=== PATIENT | female | born 1985 | race Caucasian/White ===

== ENCOUNTER 2018-09-28 08:26 | Emergency (ER) | payer SELFPAY ==
[~2018-09-28] VITALS: Wt 90.0 kg
[2018-09-28 08:31] VITALS: BP 133/74; PULSE 99; RESP 18
[2018-09-28] MEDS ORDERED: MED4DP PO (09:05)
--- NOTE | 2018-09-28 11:15 | ERD ---
ER Documentation Chief Complaint Chief Complaint sabra fall on aug, has left leg pain since then , at [facility] HPI 33-year-old female presenting to the emergency department stating that she had a ground-level fall on September 18 and has been having severe 10 out of 10 left lateral thigh pain and left buttock pain that radiates down to her foot. Patient denies fevers, bladder or bowel incontinence or genital numbness. Patient has been at 4 different emergency department and received a CT scan as well which stated that she had a intramuscular hematoma. Patient was instructed to follow-up with an orthopedist today however patient has not done that yet. She has been taking Valium and oxycodone without much relief. Patient presents here for continuous pain. ROS All systems reviewed and are negative except as per history of present illness. Medications Home Meds Active Scripts Methylprednisolone* (Medrol* DOSE PACK) 4 Mg/Dose-Pack Tab.ds.pk, 4 MG PO . DIRECTED, #1 PACKET Prov:MARY ROGERS PA-C 09/28/18 Allergies Allergies: Coded Allergies: No Known Allergy (Unverified , 09/28/18) PMhx/Soc Medical and Surgical Hx: pt denies Medical Hx History of Surgery: Yes (PORFIRIO BREASTS AUGMENTATION) Anesthesia Reaction: No Hx Alcohol Use: No Hx Substance Use: Yes (MARIJUANA) Hx Tobacco Use: No Physical Exam Vitals Vital Signs Date Temp Pulse Resp B/P (MAP) Pulse Ox O2 O2 Flow FiO2 Time Delivery Rate 09/28/18 98.1 99 18 133/74 99 08:31 (93) Physical Exam GENERAL: WD/WN, in no apparent distress, non-toxic appearing HENT: NC/AT EYES: Conjunctiva normal NECK: Supple PULM: Normal labored breathing CV: Good capillary refill GI: Non-distended, no guarding BACK: no deformities noted, normal spinal curvature, non-tender on spine midline, TTP left buttock, normal anal wink, + left straight leg raise EXT: No clubbing, cyanosis, or edema NEURO: Moves on all fours, sensation intact, normal gait SKIN: intact PSYCH: Normal mood Procedures/MDM 33-year-old female presents with left leg pain status post ground-level fall that occurred on September 18, patient has been evaluated for different emergency departments and was told to follow-up with an orthopedist today. I have reviewed patient's past paperwork that she has brought in she was instructed to follow-up with orthopedist today in which they did not see that therefore patient states that she will call the orthopedist today. I have di scussed with her that if she is unable to get Orth O follow-up then to go to the [facility]. Patient is well-appearing stable to be discharged home I have given her prescription for Medrol Dosepak for sciatica as well. Departure Diagnosis: Primary Impression: Pain of left leg Additional Impression: Hematoma Condition: Stable Patient Instructions: Understanding Sciatica, Hematoma, Back Pain W/ Sciatica Referrals: [facility] YOU HAVE RECEIVED A MEDICAL SCREENING EXAM AND THE RESULTS INDICATE THAT YOU DO NOT HAVE A CONDITION THAT REQUIRES URGENT TREATMENT IN THE EMERGENCY DEPARTMENT. FURTHER EVALUATION AND TREATMENT OF YOUR CONDITION CAN WAIT UNTIL YOU ARE SEEN IN YOUR DOCTORS OFFICE WITHIN THE NEXT 1-2 DAYS. IT IS YOUR RESPONSIBILITY TO MAKE AN APPOINTMENT FOR FOLOW-UP CARE. IF YOU HAVE A PRIMARY DOCTOR --you should call your primary doctor and schedule an appointment IF YOU DO NOT HAVE A PRIMARY DOCTOR YOU CAN CALL OUR PHYSICIAN REFERRAL HOTLINE AT IF YOU CAN NOT AFFORD TO SEE A PHYSICIAN YOU CAN CHOSE FROM THE FOLLOWING [facility] CLIN[facility] [address] [facility]. [facility] [address] [facility] [facility] [address] [facility] [facility] [address] [facility]. [facility] [address] [facility]. [facility]. [address] [facility]. [facility] YOU HAVE RECEIVED A MEDICAL SCREENING EXAM AND THE RESULTS INDICATE THAT YOU DO NOT HAVE A CONDITION THAT REQUIRES URGENT TREATMENT IN THE EMERGENCY DEPARTMENT. FURTHER EVALUATION AND TREATMENT OF YOUR CONDITION CAN WAIT UNTIL YOU ARE SEEN IN YOUR DOCTORS OFFICE WITHIN THE NEXT 1-2 DAYS. IT IS YOUR RESPONSIBILITY TO MAKE AN APPOINTMENT FOR FOLOW-UP CARE. IF YOU HAVE A PRIMARY DOCTOR --you should call your primary doctor and schedule and appointment IF YOU DO NOT HAVE A PRIMARY DOCTOR YOU CAN CALL OUR PHYSICIAN REFERRAL HOTLINE AT . IF YOU CAN NOT AFFORD TO SEE A PHYSICIAN YOU CAN CHOSE FROM THE FOLLOWING PSY[facility]IATRIC HOSPITAL INSTITUTIONS: [facility] [address] [place] [address] [facility] [address] [place] [address] [facility] [address] [place] [address] Additional Instructions: FOLLOW UP WITH YOUR ORTHO OR PRIMARY CARE PHYSICIAN TOMORROW.Return to this facility if you are not improving as expected. Take all medicines as directed. Return to this facility if you are not improving as expected. MARY ROGERS PA-C Sep 28, 2018 11:15
== END 2018-09-28 09:16 | disposition home or self-care (01) ==
LOC: FTE 08:26
DX: S80.12XA Contusion of left lower leg, initial encounter (principal); W18.39XA Other fall on same level, initial encounter; Y92.9 Unspecified place or not applicable
CPT/HCPCS: 99283

== ENCOUNTER 2018-10-04 10:00 | Inpatient (IN) | payer MEDICAID ==
[~2018-10-04] VITALS: Ht 165.1 cm; Wt 74.0 kg
[~2018-10-04 10:00] MED LIST: MED4DP PO
[2018-10-04] MEDS ORDERED: ONDANSETRON 4 MG INJ IV STA (10:34)
[2018-10-04] MEDS ORDERED: SODIUM CHLORIDE 0.9% 1L BAG IV* STA (10:34)
[2018-10-04] MEDS ORDERED: morphine 2 MG INJ IV STA (10:34)
[2018-10-04] MEDS ORDERED: ACETAMINOPHEN 500 MG TAB PO STA (10:40)
[2018-10-04] MEDS ORDERED: PIPER-TAZO 3.375 GM IV (PMX) 100 ML IVPB ONE (12:30)
[2018-10-04] MEDS ORDERED: IOHEXOL 300MG/ML 150 ML BTL ONE (12:36)
[2018-10-04] MEDS ORDERED: SOD CHLORIDE 0.9% 100 ML ONE (12:36)
[2018-10-04] MEDS ORDERED: IBUPROFEN 600 MG TAB ONE (13:44)
[2018-10-04] MEDS ORDERED: IBUPROFEN 800 MG TAB PO ONE (14:00)
--- NOTE | 2018-10-04 14:09 | ERD ---
ER Documentation Chief Complaint Chief Complaint left hip pain fell 09/18/18 HPI Patient is a 33-year-old female with no medical problems who presents with fever and leg pain. The patient had a fall onto her left leg 3 weeks ago. She had lost her balance prior. She has been to 3 different ERs since for leg pain and fevers. She was never admitted. She was seen by orthopedics Dr. Gonsalves as well who felt like she had a hematoma that was too deep to drain. He said it would just need time but the patient has had continued pain and fever. ROS All systems reviewed and are negative except as per history of present illness. Medications Home Meds Discontinued Scripts Methylprednisolone* (Medrol* DOSE PACK) 4 Mg/Dose-Pack Tab.ds.pk, 4 MG PO . DIRECTED, #1 PACKET Prov:MARY ROGERS PA-C 09/28/18 Allergies Allergies: Coded Allergies: No Known Allergy (Unverified , 10/04/18) PMhx/Soc History of Surgery: Yes (PORFIRIO BREASTS AUGMENTATION) Anesthesia Reaction: No Hx Alcohol Use: No Hx Substance Use: Yes (MARIJUANA) Hx Tobacco Use: No Smoking Status: Never smoker FmHx Family History: diabetes Physical Exam Vitals Vital Signs Date Temp Pulse Resp B/P (MAP) Pulse Ox O2 O2 Flow FiO2 Time Delivery Rate 10/04/18 102.0 13:47 10/04/18 102.5 108 17 101/59 95 Room Air 13:07 (73) 10/04/18 102.6 11:48 10/04/18 114/67 11:44 (83) 10/04/18 102.6 113 17 100 Room Air 11:40 10/04/18 101.9 114 20 126/97 98 10:03 (107) Physical Exam Const: Moderate distress secondary to pain Head: Atraumatic Eyes: Normal Conjunctiva ENT: Normal External Ears, Nose and Mouth. Neck: Full range of motion. No meningismus. Resp: Clear to auscultation bilaterally Cardio: Regular rate and rhythm, no murmurs Abd: Soft, lower quadrant abdominal pain Skin: No petechiae or rashes Back: No midline or flank tenderness Ext: Left leg pain with palpation Neur: Awake and alert Psych: Normal Mood and Affect Result Diagram: 10/04/18 1156 10/04/18 1156 Results 24 hrs Laboratory Tests Test 1/8/19 11:43 10/04/18 11:55 10/04/18 11:56 10/04/18 12:59 POC Venous Lactate 1.6 mmol/L Serum HCG, Qualitative NEGATIVE White Blood Count 24.1 10^3/ul Red Blood Count 3.18 10^6/ul Hemoglobin 9.3 g/dl Hematocrit 28.1 % Mean Corpuscular 88.4 fl Volume Mean Corpuscular 29.2 pg Hemoglobin Mean Corpuscular 33.1 g/dl Hemoglobin Concent Red Cell Distribution 13.4 % Width Platelet Count 558 10^3/UL Mean Platelet Volume 9.4 fl Immature Granulocytes 3.700 % % Neutrophils % 83.1 % Lymphocytes % 6.7 % Monocytes % 5.8 % Eosinophils % 0.3 % Basophils % 0.4 % Nucleated Red Blood 0.0 /100WBC Cells % Immature Granulocytes 0.890 10^3/ul # Neutrophils # 20.0 10^3/ul Lymphocytes # 1.6 10^3/ul Monocytes # 1.4 10^3/ul Eosinophils # 0.1 10^3/ul Basophils # 0.1 10^3/ul Nucleated Red Blood 0.0 10^3/ul Cells # Erythrocyte 110.0 mm/Hr Sedimentation Rate Sodium Level 138 mmol/L Potassium Level 3.7 mmol/L Chloride Level 93 mmol/L Carbon Dioxide Level 32 mmol/L Anion Gap 13 Blood Urea Nitrogen 12 mg/dl Creatinine 0.54 mg/dl Est Glomerular Filtrat > 60 mL/min Rate mL/min Glucose Level 140 mg/dl Calcium Level 8.4 mg/dl Total Bilirubin 1.1 mg/dl Direct Bilirubin 0.80 mg/dl Indirect Bilirubin 0.3 mg/dl Aspartate Amino 79 IU/L Transf (AST/SGOT) Alanine 60 IU/L Aminotransferase (ALT/ SGPT) Alkaline Phosphatase 337 IU/L Creatine Kinase 95 IU/L Troponin I < 0.012 ng/ml C-Reactive Protein 34.5 mg/dl Total Protein 7.1 g/dl Albumin 3.1 g/dl Globulin 4.00 g/dl Albumin/Globulin Ratio 0.77 Lipase 56 U/L Prothrombin Time 14.4 Sec Prothrombin Time Ratio 1.1 INR International 1.11 Normalized Ratio Activated 30.2 Sec Partial Thromboplast Time Current Medications Medications Dose Sig/Nena Start Time Status Last (Trade) Ordered Route PRN Stop Time Admin Dose Reason Admin Sodium 2,220 ml BOLUS OVER 2 10/04/18 DC 10/04/18 Chloride HOURS STAT 10:34 10/04/18 11:49 (NS) IV* 10:40 Morphine 6 mg ONCE STAT 10/04/18 DC 10/04/18 Sulfate IV 10:34 10/04/18 11:48 (morphine) 10:40 Ondansetron 4 mg ONCE STAT 10/04/18 DC 10/04/18 HCl (Zofran IV 10:34 10/04/18 11:48 Inj) 10:40 1,000 mg ONCE STAT 10/04/18 DC 10/04/18 Acetaminophen PO 10:40 10/04/18 11:48 (Tylenol 10:41 Tab) Piperacillin 100 ml @ ONCE ONCE 10/04/18 DC 10/04/18 Sod/ 200 mls/hr IVPB 12:30 10/04/18 13:22 Tazobactam 12:59 Sod IV Flush 10 ml STK-MED 10/04/18 DC 10/04/18 (NS 10 ml) ONCE .ROUTE 12:36 10/04/18 14:00 12:37 Sodium 100 ml @ ud STK-MED 10/04/18 DC 10/04/18 Chloride ONCE .ROUTE 12:36 10/04/18 14:00 12:37 Iohexol 150 ml STK-MED 10/04/18 DC 10/04/18 (Omnipaque ONCE .ROUTE 12:36 10/04/18 14:00 300mg/ ml) 12:37 Ibuprofen 800 mg ONCE ONCE 10/04/18 DC 10/04/18 (Motrin) PO 14:00 10/04/18 13:47 14:01 Ibuprofen 600 mg STK-MED 10/04/18 DC (Motrin) ONCE .ROUTE 13:44 10/04/18 13:45 Procedures/MDM EKG read by me: Rate/Rhythm: Sinus tachycardia Intervals: Normal Impression: Tachycardia cardia without ischemia X-ray read by radiology. CT abdomen and pelvis is pending at this time. Sepsis Documentation: Patient's infectious symptoms have not stabilized and the patient is at risk of rapid decompensation. The patient will be admitted for careful hydration, antibiotic therapy, and infectious source control. SEVERE SEPSIS CRITERIA: Infectious source: Unclear etiology, possibly an infected hematoma End organ damage indicated by: No endorgan damage at this time SEPSIS MANAGEMENT Time of recognition of sepsis: 7:56 AM. Time of recognition of severe sepsis: [No severe sepsis at this time]. Time of recognition of septic shock: [No septic shock at this time]. 3 HOUR BUNDLE Blood cultures x 2 before broad-spectrum antibiotics: [Yes] 30 ml/kg NS bolus [Completed] Initial lactate 1.6 Repeat lactate pending SEPTIC SHOCK ASSESSMENT: [No] lactic acid > 4.0 [No] Persistent hypotension (SBP < 90 or 40 mmHg drop, MAP < 65) despite 30 mL/kg IV fluid bolus VOLUME REASSESSMENT FOR SEPTIC SHOCK: No septic shock at this time PERSISTENT HYPOTENSION TREATMENT: Comfort care [No] Central line [Not Required] Vasopressor started [Not required] I considered further perfusion assessment with CVP measurement, SCVO2, bedside ultrasound volume assessment, passive leg raise, trial of further fluid bolus. And proceeded with [30 ml/kg fluid bolus of NSS, broad spectrum antibiotics, and admission.] The patient will be admitted to the care of Dr. Mcgrath from the panel team given persistent fevers and pain. She will need continued antibiotics. CRITICAL CARE Critical care time [35] minutes Emergent fluid management while maintaining close respiratory support. Provision of immediate and broad-spectrum antibiotic therapy. Simultaneous assessment for possible sources in order to direct targeted therapy. Consideration for invasive and chemical support to prevent cardiopulmonary colla pse. Critical care time is independent of procedures performed. Departure Diagnosis: Primary Impression: Sepsis Sepsis type: sepsis due to unspecified organism Qualified Codes: A41.9 - Sepsis, unspecified organism Additional Impression: Hip pain Laterality: left Qualified Codes: M25.552 - Pain in left hip Condition: ROSHAN Carrasco MD Oct 04, 2018 14:09
[2018-10-04] MEDS ORDERED: HYDROmorphONE 0.5 MG/0.5 ML SYG IV STA (14:15)
[2018-10-04] MEDS ORDERED: ONDANSETRON 4 MG INJ IV PRN ×2 (14:30→16:30)
[2018-10-04] MEDS ORDERED: VANCOMYCIN 1 GM (PMX) 250 ML IVPB ONE (14:30)
[2018-10-04] MEDS ORDERED: ACETAMINOPHEN 325 MG TAB PO PRN ×2 (14:30→16:30)
--- NOTE | 2018-10-04 16:02 | HP ---
Date/Time of Note Date/Time of Note DATE: 10/04/18 TIME: 16:02 Assessment/Plan VTE Prophylaxis Pharmacological prophylaxis: NA/contraindicated Pharm contraindication: other (hematoma) Lines/Catheters [facility] Saline Lock Assessment/Plan Hospital Course 33-year-old female who denies any significant past medical history who is status post ground-level fall on 09/18/2018 and has been evaluated at multiple [facility] rooms and an outpatient orthopedic surgeon for a left iliacus muscle abscess who presented to the emergency room on 10/04/2018 because of fevers, chills, and significant left hip/lower extremity pain with evidence of sepsis with leukocytosis, tachycardia, and febrile illness, who will be admitted to inpatient setting for further treatment and evaluation. 1. Sepsis with leukocytosis, tachycardia, and febrile illness present on admission, most probably secondary to underlying intramuscular abscess, intra- abdominal abscess/fluid collection. -Continue antimicrobials including coverage for anaerobes. -Obtain solorio cultures. -Obtain a general surgery consult. -Continue IV fluids. 2. Large left-sided retroperitoneal fluid collection/abscess with several foci of air measuring 11.3 x 6.0 x 4.3 cm. -Etiology unclear. -Continue empiric antimicrobials including coverage for anaerobes. -Obtain general surgery consult. 3. Left iliacus, left psoas muscle abscess/hematoma. -Continue pain control. -Orthopedic surgery has been consulted. -Avoid blood thinners. 4. Bilateral adnexal masses -Etiology unclear. -Obtain pelvic ultrasound. -Obtain serology for HIV, sexually transmitted diseases. 5. Normocytic anemia. -Etiology unclear. -Monitor H&H closely. -Obtain stool for OB. 6. Transaminitis. -Most probably secondary to underlying sepsis -Monitor LFTs. -Obtain hepatitis panel. Plan: The patient will be admitted to inpatient medical surgical floor. The patient will be kept n.p.o. The patient will be started on DVT prophylaxis with bilateral SCDs. The patient will remain a full code. Activities will be with assist. The rest of the patient's management will be based on the clinical course, inputs from consultants, and the results of diagnostic studies. Based on the patient's clinical presentation, she most probably requires at least 2 midnights stay for further management and evaluation of her clinical presentation. The patient was seen in collaboration with Dr. Mcgrath. Result Diagram: 10/04/18 1156 10/04/18 1156 Results 24hrs Laboratory Tests Test 10/04/18 11:43 10/04/18 11:55 10/04/18 11:56 10/04/18 12:59 POC Venous Lactate 1.6 Serum HCG, Qualitative NEGATIVE White Blood Count 24.1 H Red Blood Count 3.18 L Hemoglobin 9.3 L Hematocrit 28.1 L Mean Corpuscular Volume 88.4 Mean Corpuscular 29.2 Hemoglobin Mean Corpuscular 33.1 Hemoglobin Concent Red Cell Distribution 13.4 Width Platelet Count 558 H Mean Platelet Volume 9.4 Immature Granulocytes % 3.700 H Neutrophils % 83.1 H Lymphocytes % 6.7 L Monocytes % 5.8 Eosinophils % 0.3 Basophils % 0.4 Nucleated Red Blood 0.0 Cells % Immature Granulocytes # 0.890 H Neutrophils # 20.0 H Lymphocytes # 1.6 Monocytes # 1.4 H Eosinophils # 0.1 Basophils # 0.1 Nucleated Red Blood 0.0 Cells # Erythrocyte 110.0 H Sedimentation Rate Sodium Level 138 Potassium Level 3.7 Chloride Level 93 L Carbon Dioxide Level 32 H Anion Gap 13 Blood Urea Nitrogen 12 Creatinine 0.54 Est Glomerular Filtrat > 60 Rate mL/min Glucose Level 140 Calcium Level 8.4 Total Bilirubin 1.1 Direct Bilirubin 0.80 H Indirect Bilirubin 0.3 Aspartate Amino 79 H Transf (AST/SGOT) Alanine 60 Aminotransferase (ALT/SG PT) Alkaline Phosphatase 337 H Creatine Kinase 95 Troponin I < 0.012 C-Reactive Protein 34.5 H Total Protein 7.1 Albumin 3.1 L Globulin 4.00 H Albumin/Globulin Ratio 0.77 Lipase 56 Prothrombin Time 14.4 Prothrombin Time Ratio 1.1 INR International 1.11 Normalized Ratio Activated 30.2 Partial Thromboplast Time Test 10/04/18 14:30 Lactic Acid Level 1.3 HPI/ROS Admit Date/Time Admit Date/Time Oct 04, 2018 at 14:05 Hx of Present Illness Reason for admission: Left leg and left hip pain, fevers. Status post ground- level fall on 09/18/2018. Consultants 1. Damien Malhotra MD, General surgery. This is a 33-year-old female who denied any significant past medical history. The patient had a reported fall on 09/18/2018 while she was trying to get out of bed. The patient verbalized the fall as a completely mechanical. With the fall the patient had impact to her left hip. The patient started having left hip pain but she did not seek immediate medical attention until 2 days later. The patient visited an outside ER 2 days after the initial fall where she was evaluated and discharged home, to be followed up with outpatient orthopedic surgery. The patient was seen by Dr. Gonsalves, orthopedic surgeon on 09/29/2018 and she was sent home on oral analgesics. Orthopedic surgeon felt like that there was a hematoma in the left iliacus muscle but it was too deep to drain. The patient visited another outside ER at a different day as well as [facility] ER on September 28, 2018. The patient started having fevers and ch ills since 10/01/2018. The patient also verbalized dark colored urine. The patient was complaining of significant left inguinal area pain with radiation of pain to the left lower extremity with some associated paresthesias of the left lower extremity. The patient denied any focal weakness. The patient denied any nausea, vomiting, or diarrhea. The patient has been wearing a diaper because she could not walk fast to make it to the bathroom in time. The patient denied any stool or urinary incontinence. The patient denied any history of sexually transmitted diseases or use of intrauterine devices. In the emergency room, the patient was noted to be septic with leukocytosis, tachycardia, and febrile illness. The patient underwent a CT scan of the abdomen and pelvis that was showing a large left-sided retroperitoneal focal fluid collection/abscess with several foci of air measuring 11.3 x 6.0 x 4.3 cm. There is likely involvement of the left psoas muscle. There was also adjacent fatty stranding with extension to the left iliacus muscle, most consistent with an intramuscular abscess. The CT also revealed bilateral adnexal masses that appeared complex in nature. The patient's chest x-ray was negative. The patient was started on IV fluid resuscitation. She was provided with adequate pain control. The patient was given a single dose of IV vancomycin and IV Zosyn. ROS Constitutional: chills, febrile Eyes: no complaints ENT: no complaints Respiratory: no complaints Cardiovascular: no complaints Gastrointestinal: pain, constipation Genitourinary: other (Dark urine.) Musculoskeletal: back pain Skin: no complaints Neurologic: no complaints Endocrine: no complaints Lymphatic: no complaints Psychological: no complaints Immunologic: no complaints PMH/Family/Social Past Medical History Medical History: no pertinent history Medications Current Medications Ondansetron HCl (Zofran Inj) 4 mg BRIDGE ORDER PRN IV NAUSEA AND/OR VOMITING; Start 10/04/18 at 14:30; Stop 10/05/18 at 14:29 Acetaminophen (Tylenol Tab) 650 mg ER BRIDGE PRN PO MILD PAIN(1-3)OR ELEVATED TEMP; Start 10/04/18 at 14:30; Stop 10/05/18 at 14:29 Vancomycin HCl 250 ml @ 125 mls/hr ONCE ONCE IVPB Last administered on 10/04/18at 15:01; Admin Dose 125 MLS/HR; Start 10/04/18 at 14:30; Stop 10/04/18 at 16:29 Coded Allergies: No Known Allergy (Unverified , 10/04/18) Past Surgical History B/L breast augmentation. Social History Lives at home with her boyfriend. Alcohol Use: none Smoking Status: Never smoker Drug Use: none Exam/Review of Systems Vital Signs Vitals Vital Signs Date Temp Pulse Resp B/P (MAP) Pulse Ox O2 O2 Flow FiO2 Time Delivery Rate 10/04/18 99.7 99 17 113/65 100 Room Air 14:32 (81) Exam Exam General: Adequately build 33 year-old female lying in bed in no apparent distress. HEENT: Normocephalic, atraumatic. Eyes: Anicteric sclerae, conjunctivae clear. ENT: Nasal septum midline, oral mucosa is dry. Neck supple. Respiratory: Bilaterally clear breath sounds. No use of accessory muscles of respiration. No adventitious breath sounds. Cardiovascular: S1, S2 heard. No murmurs or gallops. Abdomen: Soft. LLQ tenderness to palpation. Suprapubic tenderness. Genitourinary: Left inguinal area tenderness (examined in the presence of female information services manager) Back: No bruises. No tenderness along the lumbar spine. Extremities: No cyanosis, no clubbing, no edema. Peripheral pulses palpable. Neurologic: The patient is awake, alert, and oriented. Additional Comments CT Abdomen & Pelvis IMPRESSION: 1. Large left sided retroperitoneal focal fluid collection/abscess with several foci of air measuring 11.3 x 6.0 x 4.3 cm. This extend from the level of L3 to the left inguinal region. This is located adjacent to the left psoas muscle with likely involvement. Adjacent fatty stranding is noted and there is extension into the left iliacus muscle, most consistent with intramuscular abscess. There also appears to be involvement of the external obturator and pectineus muscle of the left pelvis. 2. Bilateral adnexal masses which appear to be complex measuring 4.9 x 3.4 cm on the left and 4.8 cm on the right. Correlate if there is possible history of PID. Consider follow-up MRI of the pelvis or ultrasound of the pelvis. 3. No gross evidence of bowel obstruction. The appendix is within normal limits. Stool filled loops of large bowel suggestive of constipation. For mild bilateral hydronephrosis without gross renal/ureteric calculi. CXR No acute disease. FAITH AGUAYO NP Oct 04, 2018 16:02
[2018-10-04] MEDS ORDERED: NACL 0.9% 3 ML SYG IV SCH (16:30)
[2018-10-04 16:41] VITALS: Ht 165.1 cm; Wt 74.0 kg
[2018-10-04] MEDS ORDERED: VANCOMYCIN IV PER PHARMACY XX SCH (17:00)
--- NOTE | 2018-10-04 17:46 | CONS ---
Date/Time of Note Date/Time of Note DATE: 10/04/18 TIME: 17:28 Assessment/Plan Assessment/Plan Assessment/Plan 1. Large left-sided retroperitoneal focal fluid collection with several foci of air adjacent to the left psoas muscle with fatty stranding: Concern for infection -IR drain -Culture drainage -Consider Ortho consult 2. Sepsis: With significant leukocytosis -As above -Antibiotics -Fluids 3. Left flank and hip pain: -Pain management 4. Bilateral adnexal mass: -Gynecology consult 5. Normocytic normochromic anemia: -Monitor and transfuse as needed 6. Thrombocytosis: Trend 7. Elevated AST and alk phos: -Monitor 8. Hypoalbuminemia -Monitor -Treat infections Thank you. Patient seen and examined in collaboration with Dr. Damien Malhotra. Result Diagram: 10/04/18 1156 10/04/18 1156 Results 24hrs Laboratory Tests Test 10/04/18 11:43 10/04/18 11:55 10/04/18 11:56 10/04/18 12:59 POC Venous Lactate 1.6 Serum HCG, Qualitative NEGATIVE White Blood Count 24.1 H Red Blood Count 3.18 L Hemoglobin 9.3 L Hematocrit 28.1 L Mean Corpuscular Volume 88.4 Mean Corpuscular 29.2 Hemoglobin Mean Corpuscular 33.1 Hemoglobin Concent Red Cell Distribution 13.4 Width Platelet Count 558 H Mean Platelet Volume 9.4 Immature Granulocytes % 3.700 H Neutrophils % 83.1 H Lymphocytes % 6.7 L Monocytes % 5.8 Eosinophils % 0.3 Basophils % 0.4 Nucleated Red Blood 0.0 Cells % Immature Granulocytes # 0.890 H Neutrophils # 20.0 H Lymphocytes # 1.6 Monocytes # 1.4 H Eosinophils # 0.1 Basophils # 0.1 Nucleated Red Blood 0.0 Cells # Erythrocyte 110.0 H Sedimentation Rate Sodium Level 138 Potassium Level 3.7 Chloride Level 93 L Carbon Dioxide Level 32 H Anion Gap 13 Blood Urea Nitrogen 12 Creatinine 0.54 Est Glomerular Filtrat > 60 Rate mL/min Glucose Level 140 Calcium Level 8.4 Total Bilirubin 1.1 Direct Bilirubin 0.80 H Indirect Bilirubin 0.3 Aspartate Amino 79 H Transf (AST/SGOT) Alanine 60 Aminotransferase (ALT/SG PT) Alkaline Phosphatase 337 H Creatine Kinase 95 Troponin I < 0.012 C-Reactive Protein 34.5 H Total Protein 7.1 Albumin 3.1 L Globulin 4.00 H Albumin/Globulin Ratio 0.77 Lipase 56 Prothrombin Time 14.4 Prothrombin Time Ratio 1.1 INR International 1.11 Normalized Ratio Activated 30.2 Partial Thromboplast Time Test 10/04/18 13:24 10/04/18 13:34 10/04/18 14:30 HIV (1&2) Antibody NEGATIVE Hepatitis B Surface Pending Antigen Hepatitis B Core Pending Total Antibody Hepatitis C Antibody Pending Lactic Acid Level 1.3 Consultation Date/Type/Reason Admit Date/Time Oct 04, 2018 at 14:05 Date of Consultation: Oct 04, 2018 Type of Consult Surgical Reason for Consultation Intra-abdominal abscess/fluid collection Requesting Provider: FAITH AGUAYO NP Hx of Present Illness Adore Coto is a 33-year-old woman with no significant past medical history who reports significant pain in left flank and thigh status post ground-level fall on 09/18/18 while trying to get out of bed. Pain began in her left hip and progressed to her left back. She had numerous ER visits where she was evaluated but subsequently discharged home with instructions to follow-up with outpatient facility practice specialist. Unfortunately, pain persisted and she once again sought ED care. Associated symptoms include fevers and chills, dark red urine, paresthesia to the left lower leg. She denies any chest pain, palpitations, s hortness of breath, congested cough, labored breathing, nausea, vomiting, diarrhea, change in bowel or bladder habits. CT shows a large left-sided retroperitoneal focal fluid collection/abscess with several foci of air from L3 to left inguinal region. Abscess/fluid collection is adjacent to the left psoas muscle with adjacent fatty stranding with extension into the left iliacus muscle. Laboratory findings significant for leukocytosis. General surgery was asked to evaluate. 12 point review of systems was performed and is negative except for stated in HPI. Past Medical History Medical History: no pertinent history Medications Current Medications Sodium Chloride 1,000 ml @ 100 mls/hr Q10H IV ; Start 10/04/18 at 16:22 IV Flush (NS 3 ml) 3 ml PER PROTOCOL IV ; Start 10/04/18 at 16:30 Ondansetron HCl (Zofran Inj) 4 mg Q6H PRN IV NAUSEA AND/OR VOMITING; Start 10/04/18 at 16:30 Acetaminophen (Tylenol Tab) 650 mg Q6H PRN PO PAIN LEVEL 1-3 OR FEVER; Start 10/04/18 at 16:30 Acetaminophen/ Hydrocodone Bitart ([place] (5/325)) 1 tab Q6H PRN PO PAIN LEVEL 4-6; Start 10/04/18 at 16:30 Hydromorphone HCl (Dilaudid) 0.5 mg Q4H PRN IV PAIN LEVEL 7-10; Start 10/04/18 at 16:30 Piperacillin Sod/ Tazobactam Sod 100 ml @ 200 mls/hr Q6 IVPB ; Start 10/04/18 at 18:00 Vancomycin HCl (Vanco Iv Per Pharmacy) VANCOMYCIN PER PHARMACY PER PROTOCOL XX ; Start 10/04/18 at 17:00 Docusate Sodium (Colace) 100 mg BID PO ; Start 10/04/18 at 21:00 Allergies: Coded Allergies: No Known Allergy (Unverified , 10/04/18) Past Surgical History Past Surgical Hx: no surgical history Family History Significant Family History: no pertinent family hx Social History Alcohol Use: none Smoking Status: Never smoker Drug Use: none Exam/Review of Systems Vital Signs Vitals Vital Signs Date Temp Pulse Resp B/P (MAP) Pulse Ox O2 O2 Flow FiO2 Time Delivery Rate 10/04/18 99.7 99 17 113/65 100 Room Air 14:32 (81) Exam Constitutional: alert, oriented Psych: no complaints, nl mood/affect Head: normocephalic, atraumatic Eyes: nl conjunctiva, EOMI, nl lids, nl sclera ENMT: nl external ears & nose, nl lips & teeth, mucosa pink and moist Neck: supple, non-tender; No jvd Respiratory: normal air movement; No congested cough, No labored breathing Cardiovascular: regular rate and rhythm, nl pulses Gastrointestinal: soft, non-tender Genitourinary - Female: nl external genitalia Musculoskeletal: nl extremities to inspection, nl gait and stance, other (Tenderness and edema left flank/back/inguinal/thigh) Extremities: normal pulses, pitting pedal edema (1+) Neurological: No nl speech (Slow speech) Skin: No ecchymosis Medications Medications Current Medications Sodium Chloride 1,000 ml @ 100 mls/hr Q10H IV ; Start 10/04/18 at 16:22 IV Flush (NS 3 ml) 3 ml PER PROTOCOL IV ; Start 10/04/18 at 16:30 Ondansetron HCl (Zofran Inj) 4 mg Q6H PRN IV NAUSEA AND/OR VOMITING; Start 10/04/18 at 16:30 Acetaminophen (Tylenol Tab) 650 mg Q6H PRN PO PAIN LEVEL 1-3 OR FEVER; Start 10/04/18 at 16:30 Acetaminophen/ Hydrocodone Bitart ([place] (5/325)) 1 tab Q6H PRN PO PAIN LEVEL 4-6; Start 10/04/18 at 16:30 Hydromorphone HCl (Dilaudid) 0.5 mg Q4H PRN IV PAIN LEVEL 7-10; Start 10/04/18 at 16:30 Piperacillin Sod/ Tazobactam Sod 100 ml @ 200 mls/hr Q6 IVPB ; Start 10/04/18 at 18:00 Vancomycin HCl (Vanco Iv Per Pharmacy) VANCOMYCIN PER PHARMACY PER PROTOCOL XX ; Start 10/04/18 at 17:00 Docusate Sodium (Colace) 100 mg BID PO ; Start 10/04/18 at 21:00 MARIYA CASTLE NP Oct 04, 2018 17:38
[2018-10-04 18:00] VITALS: BP 94/49; PULSE 93; RESP 18
[2018-10-04] MEDS: SOD CHLORIDE 0.9% 1,000 ML IV SCH (18:00)
[2018-10-04] MEDS ORDERED: VANCOMYCIN 500 MG (PMX) 100 ML IVPB ONE (18:30)
[2018-10-04] MEDS: HYDROmorphONE 0.5 MG/0.5 ML SYG IV PRN ×2 (18:46→22:49)
[2018-10-04 20:00] VITALS: BP 101/58; PULSE 94; RESP 18
[2018-10-04] MEDS: DOCUSATE SODIUM 100 MG CAP PO SCH (21:00)
[2018-10-04] MEDS: PIPER-TAZO 3.375 GM IV (PMX) 100 ML IVPB SCH (21:36)
[2018-10-04] MEDS: HYDROCODONE/APAP (5/325) TAB PO PRN (22:14)
[2018-10-05] VITALS (9 sets, daily range): BP systolic 99–123; BP diastolic 56–66; PULSE 92–121; RESP 16–18
[2018-10-05] MEDS: morphine 4 MG/ML VIAL IV PRN ×5 (00:28→22:58)
[2018-10-05] MEDS: PIPER-TAZO 3.375 GM IV (PMX) 100 ML IVPB SCH ×4 (02:17→17:43)
[2018-10-05] MEDS: SOD CHLORIDE 0.9% 1,000 ML IV SCH ×3 (02:22→20:44)
[2018-10-05] MEDS: VANCOMYCIN 1 GM 250 ML IVPB SCH ×3 (03:25→17:43)
[2018-10-05] MEDS ORDERED: morphine SULFATE/PF (2 MG/2 ML) SYG IV STA (05:40)
[2018-10-05] MEDS ORDERED: morphine 10 MG INJ IV PRN (06:00)
[2018-10-05] MEDS: DOCUSATE SODIUM 100 MG CAP PO SCH ×2 (08:55→20:37)
[2018-10-05] MEDS ORDERED: FENTAnyl 50 MCG/ML VIAL ONE ×3 (09:08→10:17)
[2018-10-05] MEDS ORDERED: MIDAZOLAM 1 MG/ML 2 ML INJ ONE ×2 (09:09→09:48)
[2018-10-05] MEDS ORDERED: LIDOCAINE 1% (MPF) 5 ML VIAL ONE (09:09)
--- NOTE | 2018-10-05 10:06 | HPN ---
Date/Time of Note Date/Time of Note DATE: 10/05/18 TIME: 10:06 Interval H&P Admission Note Pt. seen H&P reviewed: No system changes QUINN MARTINEZ MD Oct 05, 2018 10:06
--- NOTE | 2018-10-05 10:53 | CONS ---
Date/Time of Note Date/Time of Note DATE: 10/05/18 TIME: 10:50 Assessment/Plan Assessment/Plan Assessment/Plan 33-year-old female status post fall 2017. Patient was seen in an outside emergency room and in eventually presented to [facility] with continued abdominal pain bilateral flank discomfort found to be tachycardic significant leukocytosis has been admitted Reviewed patient's medical record she is in radiology at this time having a study done. There are 2 friends in the room when patient returns evaluate. Large left-sided retroperitoneal fluid collection abscess 11.3 x 6.0 x 4.3 cm Left, left psoas muscle abscess and hematoma Bilateral adnexal masses Anemia probably secondary to the above Transaminitis probably secondary to the above Will return to speak with patient and gather more information concerning details of her fall. Will also assist with pain management Advised by legal division at [facility] to have social work service evaluate patient for possible injuries incurred by her . Result Diagram: 10/05/18 0452 10/05/18 0453 Results 24hrs Laboratory Tests Test 10/04/18 11:43 10/04/18 11:55 10/04/18 11:56 10/04/18 12:59 POC Venous Lactate 1.6 Serum HCG, NEGATIVE Qualitative White Blood Count 24.1 H Red Blood Count 3.18 L Hemoglobin 9.3 L Hematocrit 28.1 L Mean Corpuscular 88.4 Volume Mean Corpuscular 29.2 Hemoglobin Mean Corpuscular 33.1 Hemoglobin Concent Red Cell 13.4 Distribution Width Platelet Count 558 H Mean Platelet 9.4 Volume Immature 3.700 H Granulocytes % Neutrophils % 83.1 H Lymphocytes % 6.7 L Monocytes % 5.8 Eosinophils % 0.3 Basophils % 0.4 Nucleated Red 0.0 Blood Cells % Immature 0.890 H Granulocytes # Neutrophils # 20.0 H Lymphocytes # 1.6 Monocytes # 1.4 H Eosinophils # 0.1 Basophils # 0.1 Nucleated Red 0.0 Blood Cells # Erythrocyte 110.0 H Sedimentation Rate Sodium Level 138 Potassium Level 3.7 Chloride Level 93 L Carbon Dioxide 32 H Level Anion Gap 13 Blood Urea 12 Nitrogen Creatinine 0.54 Est Glomerular > 60 Filtrat Rate mL/min Glucose Level 140 Calcium Level 8.4 Total Bilirubin 1.1 Direct Bilirubin 0.80 H Indirect Bilirubin 0.3 Aspartate Amino 79 H Transf (AST/SGOT) Alanine 60 Aminotransferase ( ALT/SGPT) Alkaline 337 H Phosphatase Creatine Kinase 95 Troponin I < 0.012 C-Reactive Protein 34.5 H Total Protein 7.1 Albumin 3.1 L Globulin 4.00 H Albumin/Globulin 0.77 Ratio Lipase 56 Prothrombin Time 14.4 Prothrombin Time 1.1 Ratio INR International 1.11 Normalized Ratio Activated 30.[address] Time Test 10/04/18 13:24 10/04/18 13:34 10/04/18 14:30 10/05/18 01:00 HIV (1&2) Antibody NEGATIVE Hepatitis B NEGATIVE Surface Antigen Hepatitis B Core NEGATIVE Total Antibody Hepatitis C NEGATIVE Antibody Lactic Acid Level 1.3 Urine Color KESHAV Urine Clarity SLIGHTLY CLOUDY A Urine pH 5.0 Urine Specific 1.040 H [place] Urine Ketones NEGATIVE Urine Nitrite NEGATIVE Urine Bilirubin NEGATIVE Urine Urobilinogen 2+ H Urine Leukocyte 1+ H Esterase Urine Microscopic 2 RBC Urine Microscopic 75 H WBC Urine Squamous FEW Epithelial Cells Urine Bacteria FEW A Urine Mucus FEW A Urine Hemoglobin NEGATIVE Urine Glucose NEGATIVE Urine Total NEGATIVE Protein Test 10/05/18 04:52 10/05/18 04:53 White Blood Count 28.6 H Red Blood Count 3.17 L Hemoglobin 9.1 L Hematocrit 28.9 L Mean Corpuscular 91.2 Volume Mean Corpuscular 28.7 L Hemoglobin Mean Corpuscular 31.5 L Hemoglobin Concent Red Cell 13.4 Distribution Width Platelet Count 588 H Mean Platelet 9.5 Volume Immature 2.400 H Granulocytes % Neutrophils % 83.5 H Lymphocytes % 8.3 L Monocytes % 4.9 Eosinophils % 0.5 Basophils % 0.4 Nucleated Red 0.0 Blood Cells % Immature 0.690 H Granulocytes # Neutrophils # 23.9 H Lymphocytes # 2.4 Monocytes # 1.4 H Eosinophils # 0.2 Basophils # 0.1 Nucleated Red 0.0 Blood Cells # Phosphorus Level 4.9 Magnesium Level 2.0 Sodium Level 135 Potassium Level 3.6 Chloride Level 100 Carbon Dioxide 30 Level Anion Gap 5 # Blood Urea 10 Nitrogen Creatinine 0.56 Est Glomerular > 60 Filtrat Rate mL/min Glucose Level 69 #L Calcium Level 8.3 L Total Bilirubin 0.9 Direct Bilirubin 0.70 H Indirect Bilirubin 0.2 Aspartate Amino 50 H Transf (AST/SGOT) Alanine 48 Aminotransferase ( ALT/SGPT) Alkaline 300 H Phosphatase Total Protein 6.2 Albumin 2.8 L Globulin 3.40 H Albumin/Globulin 0.82 Ratio Consultation Date/Type/Reason Admit Date/Time Oct 04, 2018 at 14:05 Past Medical History Medical History: no pertinent history Medications Current Medications Sodium Chloride 1,000 ml @ 100 mls/hr Q10H IV Last administered on 10/04/18at 18:00; Admin Dose 100 MLS/HR; Start 10/04/18 at 16:22 IV Flush (NS 3 ml) 3 ml PER PROTOCOL IV ; Start 10/04/18 at 16:30 Ondansetron HCl (Zofran Inj) 4 mg Q6H PRN IV NAUSEA AND/OR VOMITING; Start 10/04/18 at 16:30 Acetaminophen (Tylenol Tab) 650 mg Q6H PRN PO PAIN LEVEL 1-3 OR FEVER; Start 10/04/18 at 16:30 Acetaminophen/ Hydrocodone Bitart ([place] (5/325)) 1 tab Q6H PRN PO PAIN LEVEL 4-6 Last administered on 10/04/18at 22:14; Admin Dose 1 TAB; Start 10/04/18 at 16:30 Piperacillin Sod/ Tazobactam Sod 100 ml @ 200 mls/hr Q6 IVPB Last administered on 10/05/18at 06:09; Admin Dose 200 MLS/HR; Start 10/04/18 at 18:00 Vancomycin HCl (Vanco Iv Per Pharmacy) VANCOMYCIN PER PHARMACY PER PROTOCOL XX ; Start 10/04/18 at 17:00 Docusate Sodium (Colace) 100 mg BID PO ; Start 10/04/18 at 21:00 Vancomycin HCl 250 ml @ 125 mls/hr Q8H IVPB Last administered on 10/05/18at 03:25; Admin Dose 125 MLS/HR; Start 10/05/18 at 02:00 Morphine Sulfate (morphine) 6 mg Q6 PRN IV SEVERE PAIN LEVEL 7-10; Start 10/05/18 at 06:00 Allergies: Coded Allergies: No Known Allergy (Unverified , 10/04/18) Past Surgical History Past Surgical Hx: no surgical history Social History Alcohol Use: none Smoking Status: Never smoker Drug Use: none Exam/Review of Systems Vital Signs Vitals Vital Signs Date Temp Pulse Resp B/P (MAP) Pulse Ox O2 O2 Flow FiO2 Time Delivery Rate 10/05/18 99.4 108 16 117/59 98 07:36 (78) 10/05/18 Room Air 02:00 Intake and Output 10/04/18 10/04/18 10/05/18 1515:00 23:00 07:00 IntakeIntake Total 2222 ml 350 ml 900 ml BalanceBalance 2222 ml 350 ml 900 ml Medications Medications Current Medications Sodium Chloride 1,000 ml @ 100 mls/hr Q10H IV Last administered on 10/04/18at 18:00; Admin Dose 100 MLS/HR; Start 10/04/18 at 16:22 IV Flush (NS 3 ml) 3 ml PER PROTOCOL IV ; Start 10/04/18 at 16:30 Ondansetron HCl (Zofran Inj) 4 mg Q6H PRN IV NAUSEA AND/OR VOMITING; Start 10/04/18 at 16:30 Acetaminophen (Tylenol Tab) 650 mg Q6H PRN PO PAIN LEVEL 1-3 OR FEVER; Start 10/04/18 at 16:30 Acetaminophen/ Hydrocodone Bitart ([place] (5/325)) 1 tab Q6H PRN PO PAIN LEVEL 4-6 Last administered on 10/04/18at 22:14; Admin Dose 1 TAB; Start 10/04/18 at 16:30 Piperacillin Sod/ Tazobactam Sod 100 ml @ 200 mls/hr Q6 IVPB Last administered on 10/05/18at 06:09; Admin Dose 200 MLS/HR; Start 10/04/18 at 18:00 Vancomycin HCl (Vanco Iv Per Pharmacy) VANCOMYCIN PER PHARMACY PER PROTOCOL XX ; Start 10/04/18 at 17:00 Docusate Sodium (Colace) 100 mg BID PO ; Start 10/04/18 at 21:00 Vancomycin HCl 250 ml @ 125 mls/hr Q8H IVPB Last administered on 10/05/18at 03:25; Admin Dose 125 MLS/HR; Start 10/05/18 at 02:00 Morphine Sulfate (morphine) 6 mg Q6 PRN IV SEVERE PAIN LEVEL 7-10; Start 10/05/18 at 06:00 ASHLEIGH CHOUDHURY Oct 05, 2018 10:53
--- NOTE | 2018-10-05 11:56 | CONS ---
Date/Time of Note Date/Time of Note DATE: 10/05/18 TIME: 11:43 Assessment/Plan Assessment/Plan Assessment/Plan 1) likely infected hematoma (retroperitoneal with extension to psoas) continue with vanco/zosyn at present await cx results from today's aspiration 2) adnexal masses unclear if these are benign or PID or nodules gc/clamydia RNA has been sent off RPR is pending, if not an STD then current antibiotics would be sufficient for PID await [employer] input Result Diagram: 10/05/18 0452 10/05/18 0453 Results 24hrs Laboratory Tests Test 10/04/18 11:55 10/04/18 11:56 10/04/18 12:59 10/04/18 13:24 Serum HCG, NEGATIVE Qualitative White Blood Count 24.1 H Red Blood Count 3.18 L Hemoglobin 9.3 L Hematocrit 28.1 L Mean Corpuscular 88.4 Volume Mean Corpuscular 29.2 Hemoglobin Mean Corpuscular 33.1 Hemoglobin Concent Red Cell 13.4 Distribution Width Platelet Count 558 H Mean Platelet 9.4 Volume Immature 3.700 H Granulocytes % Neutrophils % 83.1 H Lymphocytes % 6.7 L Monocytes % 5.8 Eosinophils % 0.3 Basophils % 0.4 Nucleated Red 0.0 Blood Cells % Immature 0.890 H Granulocytes # Neutrophils # 20.0 H Lymphocytes # 1.6 Monocytes # 1.4 H Eosinophils # 0.1 Basophils # 0.1 Nucleated Red 0.0 Blood Cells # Erythrocyte 110.0 H Sedimentation Rate Sodium Level 138 Potassium Level 3.7 Chloride Level 93 L Carbon Dioxide 32 H Level Anion Gap 13 Blood Urea 12 Nitrogen Creatinine 0.54 Est Glomerular > 60 Filtrat Rate mL/min Glucose Level 140 Calcium Level 8.4 Total Bilirubin 1.1 Direct Bilirubin 0.80 H Indirect Bilirubin 0.3 Aspartate Amino 79 H Transf (AST/SGOT) Alanine 60 Aminotransferase ( ALT/SGPT) Alkaline 337 H Phosphatase Creatine Kinase 95 Troponin I < 0.012 C-Reactive Protein 34.5 H Total Protein 7.1 Albumin 3.1 L Globulin 4.00 H Albumin/Globulin 0.77 Ratio Lipase 56 Prothrombin Time 14.4 Prothrombin Time 1.1 Ratio INR International 1.11 Normalized Ratio Activated 30.[address] Time HIV (1&2) Antibody NEGATIVE Test 10/04/18 13:34 10/04/18 14:30 10/05/18 01:00 10/05/18 04:52 Hepatitis B NEGATIVE Surface Antigen Hepatitis B Core NEGATIVE Total Antibody Hepatitis C NEGATIVE Antibody Lactic Acid Level 1.3 Urine Color KESHAV Urine Clarity SLIGHTLY CLOUDY A Urine pH 5.0 Urine Specific 1.040 H [place] Urine Ketones NEGATIVE Urine Nitrite NEGATIVE Urine Bilirubin NEGATIVE Urine Urobilinogen 2+ H Urine Leukocyte 1+ H Esterase Urine Microscopic 2 RBC Urine Microscopic 75 H WBC Urine Squamous FEW Epithelial Cells Urine Bacteria FEW A Urine Mucus FEW A Urine Hemoglobin NEGATIVE Urine Glucose NEGATIVE Urine Total NEGATIVE Protein White Blood Count 28.6 H Red Blood Count 3.17 L Hemoglobin 9.1 L Hematocrit 28.9 L Mean Corpuscular 91.2 Volume Mean Corpuscular 28.7 L Hemoglobin Mean Corpuscular 31.5 L Hemoglobin Concent Red Cell 13.4 Distribution Width Platelet Count 588 H Mean Platelet 9.5 Volume Immature 2.400 H Granulocytes % Neutrophils % 83.5 H Lymphocytes % 8.3 L Monocytes % 4.9 Eosinophils % 0.5 Basophils % 0.4 Nucleated Red 0.0 Blood Cells % Immature 0.690 H Granulocytes # Neutrophils # 23.9 H Lymphocytes # 2.4 Monocytes # 1.4 H Eosinophils # 0.2 Basophils # 0.1 Nucleated Red 0.0 Blood Cells # Phosphorus Level 4.9 Magnesium Level 2.0 Test 10/05/18 04:53 Sodium Level 135 Potassium Level 3.6 Chloride Level 100 Carbon Dioxide 30 Level Anion Gap 5 # Blood Urea 10 Nitrogen Creatinine 0.56 Est Glomerular > 60 Filtrat Rate mL/min Glucose Level 69 #L Calcium Level 8.3 L Total Bilirubin 0.9 Direct Bilirubin 0.70 H Indirect Bilirubin 0.2 Aspartate Amino 50 H Transf (AST/SGOT) Alanine 48 Aminotransferase ( ALT/SGPT) Alkaline 300 H Phosphatase Total Protein 6.2 Albumin 2.8 L Globulin 3.40 H Albumin/Globulin 0.82 Ratio Consultation Date/Type/Reason Admit Date/Time Oct 04, 2018 at 14:05 Date of Consultation: Oct 05, 2018 Type of Consult ID Hx of Present Illness pt fell on 09/18/18 and she has had pain to L side/hip since then that extends to the knee on L She did not start to developed F immediately after the fall and then off an on but more consistent in the last few days she has had dark urine off and on with some dysuria on occasion no vaginal discharge no SOB, cough, dysphagia, rashes, open wounds, sores no N, V, D Past Medical History Medical History: no pertinent history Medications Current Medications Sodium Chloride 1,000 ml @ 100 mls/hr Q10H IV Last administered on 10/04/18at 18:00; Admin Dose 100 MLS/HR; Start 10/04/18 at 16:22 IV Flush (NS 3 ml) 3 ml PER PROTOCOL IV ; Start 10/04/18 at 16:30 Ondansetron HCl (Zofran Inj) 4 mg Q6H PRN IV NAUSEA AND/OR VOMITING; Start 10/04/18 at 16:30 Acetaminophen (Tylenol Tab) 650 mg Q6H PRN PO PAIN LEVEL 1-3 OR FEVER; Start 10/04/18 at 16:30 Acetaminophen/ Hydrocodone Bitart ([place] (5/325)) 1 tab Q6H PRN PO PAIN LEVEL 4-6 Last administered on 10/04/18at 22:14; Admin Dose 1 TAB; Start 10/04/18 at 16:30 Piperacillin Sod/ Tazobactam Sod 100 ml @ 200 mls/hr Q6 IVPB Last administered on 10/05/18at 06:09; Admin Dose 200 MLS/HR; Start 10/04/18 at 18:00 Vancomycin HCl (Vanco Iv Per Pharmacy) VANCOMYCIN PER PHARMACY PER PROTOCOL XX ; Start 10/04/18 at 17:00 Docusate Sodium (Colace) 100 mg BID PO ; Start 10/04/18 at 21:00 Vancomycin HCl 250 ml @ 125 mls/hr Q8H IVPB Last administered on 10/05/18at 03:25; Admin Dose 125 MLS/HR; Start 10/05/18 at 02:00 Morphine Sulfate (morphine) 6 mg Q6 PRN IV SEVERE PAIN LEVEL 7-10; Start 10/05/18 at 06:00 Allergies: Coded Allergies: No Known Allergy (Unverified , 10/04/18) Past Surgical History Past Surgical Hx: no surgical history Social History Alcohol Use: none Smoking Status: Never smoker Drug Use: none Exam/Review of Systems Vital Signs Vitals Vital Signs Date Temp Pulse Resp B/P (MAP) Pulse Ox O2 O2 Flow FiO2 Time Delivery Rate 10/05/18 99.4 108 16 117/59 98 07:36 (78) 10/05/18 Room Air 02:00 Intake and Output 10/04/18 10/04/18 10/05/18 1515:00 23:00 07:00 IntakeIntake Total 2222 ml 350 ml 900 ml BalanceBalance 2222 ml 350 ml 900 ml Exam Constitutional: alert, oriented Eyes: nl sclera ENMT: mucosa pink and moist Respiratory: clear to auscultation Cardiovascular: regular rate and rhythm Gastrointestinal: soft, other (accordion drain has serous/bloody drainage) Neurological: other (non focal) Medications Medications Current Medications Sodium Chloride 1,000 ml @ 100 mls/hr Q10H IV Last administered on 10/04/18at 18:00; Admin Dose 100 MLS/HR; Start 10/04/18 at 16:22 IV Flush (NS 3 ml) 3 ml PER PROTOCOL IV ; Start 10/04/18 at 16:30 Ondansetron HCl (Zofran Inj) 4 mg Q6H PRN IV NAUSEA AND/OR VOMITING; Start 10/04/18 at 16:30 Acetaminophen (Tylenol Tab) 650 mg Q6H PRN PO PAIN LEVEL 1-3 OR FEVER; Start 10/04/18 at 16:30 Acetaminophen/ Hydrocodone Bitart ([place] (5/325)) 1 tab Q6H PRN PO PAIN LEVEL 4-6 Last administered on 10/04/18at 22:14; Admin Dose 1 TAB; Start 10/04/18 at 16:30 Piperacillin Sod/ Tazobactam Sod 100 ml @ 200 mls/hr Q6 IVPB Last administered on 10/05/18at 06:09; Admin Dose 200 MLS/HR; Start 10/04/18 at 18:00 Vancomycin HCl (Vanco Iv Per Pharmacy) VANCOMYCIN PER PHARMACY PER PROTOCOL XX ; Start 10/04/18 at 17:00 Docusate Sodium (Colace) 100 mg BID PO ; Start 10/04/18 at 21:00 Vancomycin HCl 250 ml @ 125 mls/hr Q8H IVPB Last administered on 10/05/18at 03:25; Admin Dose 125 MLS/HR; Start 10/05/18 at 02:00 Morphine Sulfate (morphine) 6 mg Q6 PRN IV SEVERE PAIN LEVEL 7-10; Start 10/05/18 at 06:00 DEREK DONATO MD Oct 05, 2018 11:54
--- NOTE | 2018-10-05 13:01 | PN ---
Date/Time of Note Date/Time of Note DATE: 10/05/18 TIME: 12:58 Assessment/Plan Lines/Catheters IV Catheter Type (from Nrs): Peripheral IV Assessment/Plan Chief Complaint/Hosp Course 1. Large left-sided retroperitoneal focal fluid collection with several foci of air adjacent to the left psoas muscle with fatty stranding: Concern for infection status post IR drain -Culture drainage> pending -Consider Ortho consult 2. Sepsis: With significant leukocytosis: WBC uptrending -As above -Antibiotics per ID -Fluids 3. Left flank and hip pain: Minimally improved -Pain management 4. Bilateral adnexal mass: -Gynecology consult 5. Normocytic normochromic anemia: -Monitor and transfuse as needed 6. Thrombocytosis: -Trend 7. Elevated AST and alk phos: -Monitor 8. Hypoalbuminemia -Monitor -Treat infections Thank you. Patient seen and examined in collaboration with Dr. Damien Malhotra. Subjective 24 Hr Interval Summary Status post IR drainage of pelvic abscess. Some relief from pain on the left flank. Fevers improved. No chills, sob, congested cough, cp, palpitations, topete, dizziness, nausea, vomiting, diarrhea, dysuria. Exam/Review of Systems Vital Signs Vitals Vital Signs Date Temp Pulse Resp B/P (MAP) Pulse Ox O2 O2 Flow FiO2 Time Delivery Rate 10/05/18 100.1 121 18 123/66 93 Room Air 12:13 (85) Intake and Output 10/04/18 10/04/18 10/05/18 1515:00 23:00 07:00 IntakeIntake Total 2222 ml 350 ml 900 ml BalanceBalance 2222 ml 350 ml 900 ml Exam Free Text/Dictation Constitutional: alert, oriented Psych: no complaints, nl mood/affect Head: normocephalic, atraumatic Eyes: nl conjunctiva, EOMI, nl lids, nl sclera ENMT: nl external ears & nose, nl lips & teeth, mucosa pink and moist Neck: supple, non-tender; No jvd Respiratory: normal air movement; No congested cough, No labored breathing Cardiovascular: regular rate and rhythm, nl pulses Gastrointestinal: soft, non-tender Genitourinary - Female: nl external genitalia Musculoskeletal: nl extremities to inspection, nl gait and stance, other (Tenderness and edema left flank/back/inguinal/thigh); left lower quadrant pigtail drain to bulb suction (sanguinous drainage) Extremities: normal pulses, pitting pedal edema (1+) Neurological: No nl speech (Slow speech) Skin: No ecchymosis Results Result Diagram: 10/05/18 0452 10/05/18 0453 MARIYA CASTLE NP Oct 05, 2018 13:01
[2018-10-05] MEDS: HYDROCODONE/APAP (5/325) TAB PO PRN (13:47)
--- NOTE | 2018-10-05 16:38 | PN ---
Date/Time of Note Date/Time of Note DATE: 10/05/18 TIME: 16:29 Assessment/Plan VTE Prophylaxis Risk score (from Ns)>0 risk: 2 [place] [facility] [place]CD contraindicated: other Pharmacological prophylaxis: other Pharm contraindication: other (hematoma) Lines/Catheters [facility] C[facility]ter Type (from [facility]): Peripheral IV Assessment/Plan Hospital Course SUBJECTIVE: Status post IR guided drainage placement today. Continues to have abdominal pain. OBJECTIVE: Physical Exam General: Adequately build 33 year-old female lying in bed in no apparent d istress. HEENT: Normocephalic, atraumatic. Eyes: Anicteric sclerae, conjunctivae clear. ENT: Nasal septum midline, oral mucosa is dry. Neck supple. Respiratory: Bilaterally clear breath sounds. No use of accessory muscles of respiration. No adventitious breath sounds. Cardiovascular: S1, S2 heard. No murmurs or gallops. Abdomen: Soft. LLQ tenderness to palpation. Suprapubic tenderness. Left lower quadrant drain in place. Genitourinary: Deferred. Back: No bruises. No tenderness along the lumbar spine. Extremities: No cyanosis, no clubbing, no edema. Peripheral pulses palpable. Neurologic: The patient is awake, alert, and oriented. Labs & Vitals per chart ASSESSMENT & PLAN 33-year-old female who denies any significant past medical history who is status post ground-level fall on 09/18/2018 and has been evaluated at multiple emergency rooms and an outpatient orthopedic surgeon for a left iliacus muscle abscess who presented to the emergency room on 10/04/2018 because of fevers, chills, and significant left hip/lower extremity pain with evidence of sepsis with leukocytosis, tachycardia, and febrile illness, who was admitted to inpatient setting for further treatment and evaluation. 1. Sepsis with leukocytosis, tachycardia, and febrile illness present on admi ssion, most probably secondary to underlying intramuscular abscess, intra- abdominal abscess/fluid collection. -Continue antimicrobials including coverage for anaerobes. - Zazueta cultures pending. -Continue IV fluids. 2. Large left-sided retroperitoneal fluid collection/abscess with several foci of air measuring 11.3 x 6.0 x 4.3 cm. -Etiology unclear. -Continue empiric antimicrobials including coverage for anaerobes. -S/P IR guided drainage on 10/05/2018. 3. Left iliacus, left psoas muscle abscess/hematoma. -Continue pain control. -Status post evaluation by orthopedic surgeon outside hospital who thought that this is too deep to be drained. -Avoid blood thinners. 4. Bilateral adnexal masses -Etiology unclear. -Pelvic ultrasound showed 3.4 cm heterogeneously hypoechoic nodules in the bilateral adnexa. -Serology for sexually transmitted diseases pending. 5. Normocytic anemia. -Etiology unclear. -Monitor H&H closely. -Stool for OB pending. 6. Transaminitis. -Most probably secondary to underlying sepsis -Monitor LFTs. -Hepatitis panel negative. 7. Fluids, electrolytes, and nutrition. -Start the patient on a regular diet. 8. DVT prophylaxis. -Bilateral SCDs. 9. Plan. -Continue antimicrobials as per ID. -Await fliud studies from the drain. -Continue pain control. The patient was seen in collaboration with Dr. Mcgrath. Result Diagram: 10/05/18 0452 10/05/18 0453 Results 24hrs Laboratory Tests Test 10/05/18 01:00 10/05/18 04:52 10/05/18 04:53 Urine Color KESHAV Urine Clarity SLIGHTLY CLOUDY A Urine pH 5.0 Urine Specific [place] 1.040 H Urine Ketones NEGATIVE Urine Nitrite NEGATIVE Urine Bilirubin NEGATIVE Urine Urobilinogen 2+ H Urine Leukocyte Esterase 1+ H Urine Microscopic RBC 2 Urine Microscopic WBC 75 H Urine Squamous Epithelial Cells FEW Urine Bacteria FEW A Urine Mucus FEW A Urine Hemoglobin NEGATIVE Urine Glucose NEGATIVE Urine Total Protein NEGATIVE White Blood Count 28.6 H Red Blood Count 3.17 L Hemoglobin 9.1 L Hematocrit 28.9 L Mean Corpuscular Volume 91.2 Mean Corpuscular Hemoglobin 28.7 L Mean Corpuscular 31.5 L Hemoglobin Concent Red Cell Distribution Width 13.4 Platelet Count 588 H Mean Platelet Volume 9.5 Immature Granulocytes % 2.400 H Neutrophils % 83.5 H Lymphocytes % 8.3 L Monocytes % 4.9 Eosinophils % 0.5 Basophils % 0.4 Nucleated Red Blood Cells % 0.0 Immature Granulocytes # 0.690 H Neutrophils # 23.9 H Lymphocytes # 2.4 Monocytes # 1.4 H Eosinophils # 0.2 Basophils # 0.1 Nucleated Red Blood Cells # 0.0 Phosphorus Level 4.9 Magnesium Level 2.0 Sodium Level 135 Potassium Level 3.6 Chloride Level 100 Carbon Dioxide Level 30 Anion Gap 5 # Blood Urea Nitrogen 10 Creatinine 0.56 Est Glomerular Filtrat > 60 Rate mL/min Glucose Level 69 #L Calcium Level 8.3 L Total Bilirubin 0.9 Direct Bilirubin 0.70 H Indirect Bilirubin 0.2 Aspartate Amino 50 H Transf (AST/SGOT) Alanine 48 Aminotransferase (ALT/SGPT) Alkaline Phosphatase 300 H Total Protein 6.2 Albumin 2.8 L Globulin 3.40 H Albumin/Globulin Ratio 0.82 Exam/Review of Systems Vital Signs Vitals Vital Signs Date Temp Pulse Resp B/P (MAP) Pulse Ox O2 O2 Flow FiO2 Time Delivery Rate 10/05/18 97.5 114 16 108/62 92 15:04 (77) 10/05/18 Room Air 12:13 Intake and Output 10/04/18 10/04/18 10/05/18 1515:00 23:00 07:00 IntakeIntake Total 2222 ml 350 ml 900 ml BalanceBalance 2222 ml 350 ml 900 ml Medications Medications Current Medications Sodium Chloride 1,000 ml @ 100 mls/hr Q10H IV Last administered on 10/04/18at 18:00; Admin Dose 100 MLS/HR; Start 10/04/18 at 16:22 IV Flush (NS 3 ml) 3 ml PER PROTOCOL IV ; Start 10/04/18 at 16:30 Ondansetron HCl (Zofran Inj) 4 mg Q6H PRN IV NAUSEA AND/OR VOMITING; Start 10/04/18 at 16:30 Acetaminophen (Tylenol Tab) 650 mg Q6H PRN PO PAIN LEVEL 1-3 OR FEVER; Start 10/04/18 at 16:30 Acetaminophen/ Hydrocodone Bitart ([place] (5/325)) 1 tab Q6H PRN PO PAIN LEVEL 4-6 Last administered on 10/05/18at 13:47; Admin Dose 1 TAB; Start 10/04/18 at 16:30 Piperacillin Sod/ Tazobactam Sod 100 ml @ 200 mls/hr Q6 IVPB Last administered on 10/05/18at 12:08; Admin Dose 200 MLS/HR; Start 10/04/18 at 18:00 Vancomycin HCl (Vanco Iv Per Pharmacy) VANCOMYCIN PER PHARMACY PER PROTOCOL XX ; Start 10/04/18 at 17:00 Docusate Sodium (Colace) 100 mg BID PO ; Start 10/04/18 at 21:00 Vancomycin HCl 250 ml @ 125 mls/hr Q8H IVPB Last administered on 10/05/18at 12:07; Admin Dose 125 MLS/HR; Start 10/05/18 at 02:00 Miscellaneous Information (*Rx Drug Level Order Reminder*) VANCO TR LEVEL PRIOR... ONCE ONCE XX ; Start 10/05/18 at 17:00; Stop 10/05/18 at 17:01 Morphine Sulfate (morphine) 3 mg Q3H PRN IV SEVERE PAIN LEVEL 7-10; Start 10/05/18 at 16:30; Status UNV Lorazepam (Ativan) 1 mg Q6H PRN IV Anxiety; Start 10/05/18 at 16:30; Status UNV FAITH AGUAYO NP Oct 05, 2018 16:38
[2018-10-05] MEDS: LORAZEPAM 4 MG/ML VIAL IV PRN (16:52)
[2018-10-06] MEDS: PIPER-TAZO 3.375 GM IV (PMX) 100 ML IVPB SCH ×4 (00:19→17:51)
[2018-10-06] MEDS: LORAZEPAM 4 MG/ML VIAL IV PRN ×4 (00:20→21:53)
[2018-10-06] MEDS ORDERED: VANCOMYCIN 1.5 GM in SOD CHLORIDE 0.9% 250 ML IVPB SCH (02:00)
[2018-10-06] MEDS: morphine 4 MG/ML VIAL IV PRN ×6 (02:05→20:57)
[2018-10-06 02:10] VITALS: BP 99/58; PULSE 92; RESP 18
[2018-10-06 08:00] VITALS: BP 114/58; PULSE 107; RESP 17
[2018-10-06] MEDS: SOD CHLORIDE 0.9% 1,000 ML IV SCH ×2 (08:22→12:23)
--- NOTE | 2018-10-06 08:49 | CONS ---
Date/Time of Note Date/Time of Note DATE: 10/06/18 TIME: 08:46 Assessment/Plan Assessment/Plan Assessment/Plan 1) likely infected hematoma (retroperitoneal with extension to psoas) continue with vanco/zosyn at present await cx results from today's aspiration 10/06 - strep species (possible enterococcus) in abscess cavity continue with zosyn, change vanco to zyvox in case VRE is present since pt is still spiking fevers to review CT with radiology urine cx is NGTD 2) adnexal masses unclear if these are benign or PID or nodules gc/clamydia RNA has been sent off RPR is pending, if not an STD then current antibiotics would be sufficient for PID await [employer] input Result Diagram: 10/06/18 0550 10/06/18 0550 Results 24hrs Laboratory Tests Test 10/05/18 16:43 10/06/18 02:35 10/06/18 05:50 Vancomycin Level Trough < 5.0 L Urine Color YELLOW Urine Clarity CLEAR Urine pH 5.0 Urine Specific [place] 1.009 Urine Ketones NEGATIVE Urine Nitrite NEGATIVE Urine Bilirubin NEGATIVE Urine Urobilinogen NEGATIVE Urine Leukocyte Esterase NEGATIVE Urine Microscopic RBC 1 Urine Microscopic WBC 2 Urine Hemoglobin 2+ H Urine Glucose NEGATIVE Urine Total Protein NEGATIVE Urine Opiates Screen Positive Urine Barbiturates Negative Urine Amphetamines Screen Negative Urine Benzodiazepines Screen Positive Urine Cocaine Screen Negative Urine Cannabinoids Negative White Blood Count 23.9 H Red Blood Count 3.08 L Hemoglobin 8.9 L Hematocrit 27.7 L Mean Corpuscular Volume 89.9 Mean Corpuscular Hemoglobin 28.9 L Mean Corpuscular Hemoglobin Concent 32.1 Red Cell Distribution Width 13.7 Platelet Count 403 # Mean Platelet Volume 10.9 H Immature Granulocytes % 2.500 H Neutrophils % 82.5 H Lymphocytes % 9.5 L Monocytes % 4.6 Eosinophils % 0.5 Basophils % 0.4 Nucleated Red Blood Cells % 0.0 Immature Granulocytes # 0.610 H Neutrophils # 19.7 H Lymphocytes # 2.3 Monocytes # 1.1 H Eosinophils # 0.1 Basophils # 0.1 Nucleated Red Blood Cells # 0.0 Sodium Level 136 Potassium Level 3.6 Chloride Level 96 L Carbon Dioxide Level 30 Anion Gap 10 # Blood Urea Nitrogen 6 L Creatinine 0.47 Est Glomerular Filtrat Rate mL/min > 60 Glucose Level 88 Calcium Level 8.2 L Phosphorus Level 3.6 Magnesium Level 2.1 Consultation Date/Type/Reason Admit Date/Time Oct 04, 2018 at 14:05 Initial Consult Date 10/05/18 Type of Consult ID Requesting Provider: FAITH AGUAYO NP 24 HR Interval Summary Free Text/Dictation pt still has significant pain to L hip/back area still having fevers accordion drain has brown liquid in it no N, V, D breathing is ok poor appetite Exam/Review of Systems Vital Signs Vitals Vital Signs Date Temp Pulse Resp B/P (MAP) Pulse Ox O2 O2 Flow FiO2 Time Delivery Rate 10/06/18 102.4 107 17 114/58 95 Room Air 08:00 (76) Intake and Output 10/05/18 10/05/18 10/06/18 1414:59 22:59 06:59 IntakeIntake Total 350 ml 2220 ml 1050 ml OutputOutput Total 1250 ml 650 ml BalanceBalance -900 ml 1570 ml 1050 ml Exam Constitutional: alert, oriented Eyes: nl sclera ENMT: mucosa pink and moist Respiratory: clear to auscultation Cardiovascular: regular rate and rhythm Gastrointestinal: soft, bowel sounds Medications Medications Current Medications Sodium Chloride 1,000 ml @ 100 mls/hr Q10H IV Last administered on 10/05/18at 20:44; Admin Dose 100 MLS/HR; Start 10/04/18 at 16:22 IV Flush (NS 3 ml) 3 ml PER PROTOCOL IV ; Start 10/04/18 at 16:30 Ondansetron HCl (Zofran Inj) 4 mg Q6H PRN IV NAUSEA AND/OR VOMITING; Start 10/04/18 at 16:30 Acetaminophen (Tylenol Tab) 650 mg Q6H PRN PO PAIN LEVEL 1-3 OR FEVER Last administered on 10/05/18at 20:38; Admin Dose 650 MG; Start 10/04/18 at 16:30 Acetaminophen/ Hydrocodone Bitart ([place] (5/325)) 1 tab Q6H PRN PO PAIN LEVEL 4-6 Last administered on 10/05/18at 13:47; Admin Dose 1 TAB; Start 10/04/18 at 16:30 Piperacillin Sod/ Tazobactam Sod 100 ml @ 200 mls/hr Q6 IVPB Last administered on 10/06/18at 05:54; Admin Dose 200 MLS/HR; Start 10/04/18 at 18:00 Vancomycin HCl (Vanco Iv Per Pharmacy) VANCOMYCIN PER PHARMACY PER PROTOCOL XX ; Start 10/04/18 at 17:00 Docusate Sodium (Colace) 100 mg BID PO Last administered on 10/05/18at 20:37; Admin Dose 100 MG; Start 10/04/18 at 21:00 Morphine Sulfate (morphine) 3 mg Q3H PRN IV SEVERE PAIN LEVEL 7-10 Last administered on 10/06/18at 05:53; Admin Dose 3 MG; Start 10/05/18 at 16:30 Lorazepam (Ativan) 1 mg Q6H PRN IV Anxiety Last administered on 10/06/18at 08:27; Admin Dose 1 MG; Start 10/05/18 at 16:30 Vancomycin HCl 1.5 gm/Sodium Chloride 250 ml @ 83.333 mls/ hr Q8H IVPB Last administered on 10/06/18at 02:04; Admin Dose 83.333 MLS/HR; Start 10/06/18 at 02:00 DEREK DONATO MD Oct 06, 2018 08:49
[2018-10-06] MEDS: DOCUSATE SODIUM 100 MG CAP PO SCH ×2 (09:09→20:57)
--- NOTE | 2018-10-06 10:34 | PN ---
Date/Time of Note Date/Time of Note DATE: 10/06/18 TIME: 10:29 Assessment/Plan Lines/Catheters IV Catheter Type (from Nrsg): Peripheral IV Assessment/Plan Chief Complaint/Hosp Course 1. Large left-sided retroperitoneal focal fluid collection with several foci of air adjacent to the left psoas muscle with fatty stranding: Concern for infection status post IR drain -continue drain -cont abx per sensitivity>per id -highly encourage cessation vaping and other illicit/recreational drugs 2. Sepsis: With significant leukocytosis: WBC improved -As above -Antibiotics per ID -Fluids 3. Left flank and hip pain: Minimally improved -Pain management 4. Bilateral adnexal mass: -Gynecology consult 5. Normocytic normochromic anemia: -Monitor and transfuse as needed 6. Thrombocytosis: -Trend 7. Elevated AST and alk phos: -Monitor 8. Hypoalbuminemia -Monitor -Treat infections Thank you. Patient seen and examined in collaboration with Dr. Damien Malhotra. Subjective 24 Hr Interval Summary Continues to have fevers. Large amount of drainage per drainage tube. Vape pen found in patient's bed- patient denies use. WBC improved. No chills, sob, conge sted cough, cp, palpitations, topete, dizziness, n/v/d/dysuria. Exam/Review of Systems Vital Signs Vitals Vital Signs Date Temp Pulse Resp B/P (MAP) Pulse Ox O2 O2 Flow FiO2 Time Delivery Rate 10/06/18 102.4 107 17 114/58 95 Room Air 08:00 (76) Intake and Output 10/05/18 10/05/18 10/06/18 1414:59 22:59 06:59 IntakeIntake Total 350 ml 2220 ml 1050 ml OutputOutput Total 1250 ml 650 ml BalanceBalance -900 ml 1570 ml 1050 ml Exam Free Text/Dictation Constitutional: alert, oriented Psych: no complaints, nl mood/affect Head: normocephalic, atraumatic Eyes: nl conjunctiva, EOMI, nl lids, nl sclera ENMT: nl external ears & nose, nl lips & teeth, mucosa pink and moist Neck: supple, non-tender; No jvd Respiratory: normal air movement; No congested cough, No labored breathing Cardiovascular: regular rate and rhythm, nl pulses Gastrointestinal: soft, non-tender Genitourinary - Female: nl external genitalia Musculoskeletal: nl extremities to inspection, nl gait and stance, other (Tenderness and edema left flank/back/inguinal/thigh); left lower quadrant pigtail drain to bulb suction (purulent drainage) Extremities: normal pulses, pitting pedal edema (1+) Neurological: No nl speech (Slow speech) Skin: No ecchymosis Results Result Diagram: 10/06/18 0550 10/06/18 0550 MARIYA CASTLE NP Oct 06, 2018 10:34
--- NOTE | 2018-10-06 12:13 | PN ---
Date/Time of Note Date/Time of Note DATE: 10/06/18 TIME: 12:08 Assessment/Plan VTE Prophylaxis Risk score (from Nsg)>0 risk: 2 SCD applied (from Ns): No SCD contraindicated: other Pharmacological prophylaxis: NA/contraindicated Pharm contraindication: other (Hematoma) Lines/Catheters IV Catheter Type (from Nrsg): Peripheral IV Assessment/Plan Hospital Course SUBJECTIVE: Continues to have abdominal pain. History of febrile illness. The patient very tearful in bed stating that she has problems with her mom. Denies being depressed. Asked for anxiety medicine. OBJECTIVE: Physical Exam General: Adequately build 33 year-old female lying in bed in no apparent distress. HEENT: Normocephalic, atraumatic. Eyes: Anicteric sclerae, conjunctivae clear. ENT: Nasal septum midline, oral mucosa is dry. Neck supple. Respiratory: Bilaterally clear breath sounds. No use of accessory muscles of respiration. No adventitious breath sounds. Cardiovascular: S1, S2 heard. No murmurs or gallops. Abdomen: Soft. LLQ tenderness to palpation. Suprapubic tenderness. Left lower quadrant drain in place draining chocolate colored fluid. Genitourinary: Deferred. Back: No bruises. No tenderness along the lumbar spine. Extremities: No cyanosis, no clubbing, no edema. Peripheral pulses palpable. Neurologic: The patient is awake, alert, and oriented. Labs & Vitals per chart ASSESSMENT & PLAN 33-year-old female who denies any significant past medical history who is status post ground-level fall on 09/18/2018 and has been evaluated at multiple emergency rooms and an outpatient orthopedic surgeon for a left iliacus muscle abscess who presented to the emergency room on 10/04/2018 because of fevers, chills, and significant left hip/lower extremity pain with evidence of sepsis with leukocytosis, tachycardia, and febrile illness, who was admitted to inpatient setting for further treatment and evaluation. 1. Sepsis with leukocytosis, tachycardia, and febrile illness present on admission, most probably secondary to underlying intramuscular abscess, intra- abdominal abscess/fluid collection. -Continue antimicrobials as per ID. - Zazueta cultures negative so far. -Continue IV fluids. 2. Large left-sided retroperitoneal fluid collection/abscess with several foci of air measuring 11.3 x 6.0 x 4.3 cm. -Etiology unclear. -Continue antimicrobials as per ID. -S/P IR guided drainage on 10/05/2018. 3. Left iliacus, left psoas muscle abscess/hematoma. -Continue pain control. -Status post evaluation by orthopedic surgeon outside hospital who thought that this is too deep to be drained. -Avoid blood thinners. 4. Bilateral adnexal masses -Etiology unclear. -Pelvic ultrasound showed 3.4 cm heterogeneously hypoechoic nodules in the bilateral adnexa. -RPR negative. HIV negative. Pending chlamydia and gonorrhea. 5. Normocytic anemia. -Etiology unclear. -Monitor H&H closely. -Stool for OB pending. 6. Transaminitis. -Most probably secondary to underlying sepsis -Monitor LFTs. -Hepatitis panel negative. 7. Fluids, electrolytes, and nutrition. -Regular diet. 8. DVT prophylaxis. -Bilateral SCDs. 9. Plan. -Continue antimicrobials as per ID. -Continue pain control. -Psych evaluation. -Physical therapy evaluation. The patient was seen in collaboration with Dr. Mcgrath. Result Diagram: 10/06/18 0550 10/06/18 0550 Results 24hrs Laboratory Tests Test 10/05/18 16:43 10/06/18 02:35 10/06/18 05:50 Vancomycin Level Trough < 5.0 L Urine Color YELLOW Urine Clarity CLEAR Urine pH 5.0 Urine Specific [place] 1.009 Urine Ketones NEGATIVE Urine Nitrite NEGATIVE Urine Bilirubin NEGATIVE Urine Urobilinogen NEGATIVE Urine Leukocyte Esterase NEGATIVE Urine Microscopic RBC 1 Urine Microscopic WBC 2 Urine Hemoglobin 2+ H Urine Glucose NEGATIVE Urine Total Protein NEGATIVE Urine Opiates Screen Positive Urine Barbiturates Negative Urine Amphetamines Screen Negative Urine Benzodiazepines Screen Positive Urine Cocaine Screen Negative Urine Cannabinoids Negative White Blood Count 23.9 H Red Blood Count 3.08 L Hemoglobin 8.9 L Hematocrit 27.7 L Mean Corpuscular Volume 89.9 Mean Corpuscular Hemoglobin 28.9 L Mean Corpuscular Hemoglobin Concent 32.1 Red Cell Distribution Width 13.7 Platelet Count 403 # Mean Platelet Volume 10.9 H Immature Granulocytes % 2.500 H Neutrophils % 82.5 H Lymphocytes % 9.5 L Monocytes % 4.6 Eosinophils % 0.5 Basophils % 0.4 Nucleated Red Blood Cells % 0.0 Immature Granulocytes # 0.610 H Neutrophils # 19.7 H Lymphocytes # 2.3 Monocytes # 1.1 H Eosinophils # 0.1 Basophils # 0.1 Nucleated Red Blood Cells # 0.0 Sodium Level 136 Potassium Level 3.6 Chloride Level 96 L Carbon Dioxide Level 30 Anion Gap 10 # Blood Urea Nitrogen 6 L Creatinine 0.47 Est Glomerular Filtrat Rate mL/min > 60 Glucose Level 88 Calcium Level 8.2 L Phosphorus Level 3.6 Magnesium Level 2.1 Exam/Review of Systems Vital Signs Vitals Vital Signs Date Temp Pulse Resp B/P (MAP) Pulse Ox O2 O2 Flow FiO2 Time Delivery Rate 10/06/18 102.4 107 17 114/58 95 Room Air 08:00 (76) Intake and Output 10/05/18 10/05/18 10/06/18 1414:59 22:59 06:59 IntakeIntake Total 350 ml 2220 ml 1050 ml OutputOutput Total 1250 ml 650 ml BalanceBalance -900 ml 1570 ml 1050 ml Medications Medications Current Medications Sodium Chloride 1,000 ml @ 100 mls/hr Q10H IV Last administered on 10/05/18at 20:44; Admin Dose 100 MLS/HR; Start 10/04/18 at 16:22 IV Flush (NS 3 ml) 3 ml PER PROTOCOL IV ; Start 10/04/18 at 16:30 Ondansetron HCl (Zofran Inj) 4 mg Q6H PRN IV NAUSEA AND/OR VOMITING; Start 10/04/18 at 16:30 Acetaminophen (Tylenol Tab) 650 mg Q6H PRN PO PAIN LEVEL 1-3 OR FEVER Last administered on 10/05/18at 20:38; Admin Dose 650 MG; Start 10/04/18 at 16:30 Acetaminophen/ Hydrocodone Bitart ([place] (5/325)) 1 tab Q6H PRN PO PAIN LEVEL 4-6 Last administered on 10/05/18at 13:47; Admin Dose 1 TAB; Start 10/04/18 at 16:30 Piperacillin Sod/ Tazobactam Sod 100 ml @ 200 mls/hr Q6 IVPB Last administered on 10/06/18at 05:54; Admin Dose 200 MLS/HR; Start 10/04/18 at 18:00 Docusate Sodium (Colace) 100 mg BID PO Last administered on 10/06/18at 09:09; Admin Dose 100 MG; Start 10/04/18 at 21:00 Morphine Sulfate (morphine) 3 mg Q3H PRN IV SEVERE PAIN LEVEL 7-10 Last administered on 10/06/18at 09:09; Admin Dose 3 MG; Start 10/05/18 at 16:30 Lorazepam (Ativan) 1 mg Q6H PRN IV Anxiety Last administered on 10/06/18at 08:27; Admin Dose 1 MG; Start 10/05/18 at 16:30 Linezolid (Zyvox) 600 mg BID PO ; Start 10/06/18 at 09:00 FAITH AGUAYO NP Oct 06, 2018 12:13
[2018-10-06] MEDS: ZYVOX 600 MG TAB PO SCH ×2 (12:23→20:57)
[2018-10-06 14:32] VITALS: BP 109/50; PULSE 105; RESP 17
[2018-10-06 19:27] VITALS: BP 107/55; PULSE 91; RESP 18
[2018-10-07] MEDS: PIPER-TAZO 3.375 GM IV (PMX) 100 ML IVPB SCH ×5 (00:09→23:40)
[2018-10-07] MEDS: morphine 4 MG/ML VIAL IV PRN ×8 (00:18→23:39)
[2018-10-07 01:34] VITALS: BP 105/60; PULSE 83; RESP 18
[2018-10-07] MEDS: SOD CHLORIDE 0.9% 1,000 ML IV SCH ×3 (01:51→14:22)
[2018-10-07 07:32] VITALS: BP 108/57; PULSE 88; RESP 14
[2018-10-07] MEDS: DOCUSATE SODIUM 100 MG CAP PO SCH ×2 (08:46→20:29)
[2018-10-07] MEDS: ZYVOX 600 MG TAB PO SCH (08:46)
[2018-10-07] MEDS: HYDROCODONE/APAP (5/325) TAB PO PRN (09:50)
[2018-10-07] MEDS: LORAZEPAM 2 MG INJ IV PRN ×2 (09:50→21:29)
--- NOTE | 2018-10-07 10:00 | PN ---
Date/Time of Note Date/Time of Note DATE: 10/07/18 TIME: 09:58 Assessment/Plan Lines/Catheters IV Catheter Type (from Nrs): Peripheral IV Assessment/Plan Chief Complaint/Hosp Course 1. Large left-sided retroperitoneal focal fluid collection with several foci of air adjacent to the left psoas muscle with fatty stranding: Concern for infection status post IR drain -continue drain -cont abx per sensitivity>per id -highly encourage cessation vaping and other illicit/recreational drugs 2. Sepsis: With significant leukocytosis: WBC improving -As above -Antibiotics per ID -Fluids 3. Left flank and hip pain: Minimally improved -Pain management 4. Bilateral adnexal mass: -Gynecology consult 5. Normocytic normochromic anemia: -Monitor and transfuse as needed 6. Thrombocytosis: -Trend 7. Elevated AST and alk phos: -Monitor 8. Hypoalbuminemia -Monitor -Treat infections Thank you. Patient seen and examined in collaboration with Dr. Damien Malhotra. Subjective 24 Hr Interval Summary WBC improving. No fevers overnight, chills, sob, congested cough, cp, palpitations, topete, dizziness, n/v/d/dysuria. Continues to have large amount of output from drain. Exam/Review of Systems Vital Signs Vitals Vital Signs Date Temp Pulse Resp B/P (MAP) Pulse Ox O2 O2 Flow FiO2 Time Delivery Rate 10/07/18 97.7 88 14 108/57 100 Room Air 07:32 (74) Intake and Output 10/06/18 10/06/18 10/07/18 1515:00 23:00 07:00 IntakeIntake Total 620 ml 1300 ml 1540 ml OutputOutput Total 250 ml 100 ml BalanceBalance 370 ml 1300 ml 1440 ml Exam Free Text/Dictation Constitutional: alert, oriented Psych: no complaints, nl mood/affect Head: normocephalic, atraumatic Eyes: nl conjunctiva, EOMI, nl lids, nl sclera ENMT: nl external ears & nose, nl lips & teeth, mucosa pink and moist Neck: supple, non-tender; No jvd Respiratory: normal air movement; No congested cough, No labored breathing Cardiovascular: regular rate and rhythm, nl pulses Gastrointestinal: soft, non-tender Genitourinary - Female: nl external genitalia Musculoskeletal: nl extremities to inspection, nl gait and stance, other (Tenderness and edema left flank/back/inguinal/thigh-improved); left lower quadrant pigtail drain to bulb suction (purulent drainage) Extremities: normal pulses, pitting pedal edema (1+) Neurological: No nl speech (Slow speech) Skin: No ecchymosis Results Result Diagram: 10/07/18 0436 10/07/18 0436 MARIYA CASTLE NP Oct 07, 2018 10:00
--- NOTE | 2018-10-07 10:21 | PSY ---
Date/Time of Note Date/Time of Note DATE: 10/07/18 TIME: 10:16 Psychiatric Subjective Eval Consent Pt consented to telemedicine: No Subjective Evaluation Patient location: inpatient Chief Complaint: left hip pain fell 09/18/18 History of present illness Patient is a 33-year-old female admitted for fevers, chills, and significant left hip/lower extremity pain. On a [id number] evaluation, patient admits to being tearful and anxious, but she denied any psychiatric issue. Patient stated she was increasingly sad because her mom had lied against her boyfriend to implicates him and get him in trouble. Patient was not specific about what the issue was, she was very evasive. Denies feeling of hopelessness, denies suicidal ideation, denies feeling of helplessness, and contracted for safety. Past psychiatric history Denies any history of mental illness Hospitalization: no Medical history Problems Medical Problems: (1) Hematoma Status: Acute (2) Hematoma Status: Acute (3) Hip pain Status: Acute (4) Pain of left leg Status: Acute (5) Pain of left leg Status: Acute (6) Sepsis Status: Acute Allergies: Coded Allergies: No Known Allergy (Unverified , 10/04/18) Substance Abuse Substance abuse history: No Prior substance abuse treatmen: No Social History Marital status: single DPA/Conservatorship: No Psychiatric Objective Eval Review of Systems: Review of Systems: Not Applicable Physical Examination: Physical Examination: Not Applicable Sleep: Adequate Energy: Adequate Mental Status Examination: Appearance: Groomed Eye Contact: Good Behavior: Cooperative Speech: Clear AFFECT: Appropriate Though Process: Linear Orientation: x4 Insight: Intact Laboratory Results Laboratory Tests Test 10/05/18 16:43 10/06/18 02:35 10/06/18 05:50 10/07/18 04:36 Vancomycin Level < 5.0 ug/ml Trough Urine Color YELLOW Urine Clarity CLEAR Urine pH 5.0 Urine Specific 1.009 [place] Urine Ketones NEGATIVE mg/dL Urine Nitrite NEGATIVE mg/dL Urine Bilirubin NEGATIVE mg/dL Urine NEGATIVE mg/dL Urobilinogen Urine Leukocyte NEGATIVE Prasanna/ul Esterase Urine Microscopic 1 /HPF RBC Urine Microscopic 2 /HPF WBC Urine Hemoglobin 2+ mg/dL Urine Glucose NEGATIVE mg/dL Urine Total NEGATIVE mg/dl Protein Urine Opiates Positive Screen Urine Negative Barbiturates Urine Negative Amphetamines Screen Urine Positive Benzodiazepines Screen Urine Cocaine Negative Screen Urine Negative Cannabinoids White Blood Count 23.9 10^3/ul 14.8 10^3/ul Red Blood Count 3.08 10^6/ul 2.77 10^6/ul Hemoglobin 8.9 g/dl 7.9 g/dl Hematocrit 27.7 % 25.1 % Mean Corpuscular 89.9 fl 90.6 fl Volume Mean Corpuscular 28.9 pg 28.5 pg Hemoglobin Mean Corpuscular 32.1 g/dl 31.5 g/dl Hemoglobin Concen t Red Cell 13.7 % 13.6 % Distribution Width Platelet Count 403 10^3/UL 627 10^3/UL Mean Platelet 10.9 fl 9.2 fl Volume Immature 2.500 % 1.800 % Granulocytes % Neutrophils % 82.5 % 78.1 % Lymphocytes % 9.5 % 14.4 % Monocytes % 4.6 % 4.5 % Eosinophils % 0.5 % 0.9 % Basophils % 0.4 % 0.3 % Nucleated Red 0.0 /100WBC 0.0 /100WBC Blood Cells % Immature 0.610 10^3/ul 0.270 10^3/ul Granulocytes # Neutrophils # 19.7 10^3/ul 11.5 10^3/ul Lymphocytes # 2.3 10^3/ul 2.1 10^3/ul Monocytes # 1.1 10^3/ul 0.7 10^3/ul Eosinophils # 0.1 10^3/ul 0.1 10^3/ul Basophils # 0.1 10^3/ul 0.0 10^3/ul Nucleated Red 0.0 10^3/ul 0.0 10^3/ul Blood Cells # Sodium Level 136 mmol/L 139 mmol/L Potassium Level 3.6 mmol/L 3.7 mmol/L Chloride Level 96 mmol/L 102 mmol/L Carbon Dioxide 30 mmol/L 30 mmol/L Level Anion Gap 10 7 Blood Urea 6 mg/dl 4 mg/dl Nitrogen Creatinine 0.47 mg/dl 0.52 mg/dl Est Glomerular > 60 mL/min > 60 mL/min Filtrat Rate mL/min Glucose Level 88 mg/dl 106 mg/dl Calcium Level 8.2 mg/dl 8.2 mg/dl Phosphorus Level 3.6 mg/dl 4.2 mg/dl Magnesium Level 2.1 mg/dl 2.2 mg/dl Assessment and Plan Assessment/Diagnosis Diagnosis Anxiety NOS Recommendation/Plan Multiple antipsychotics: No Psychotherapy Provide supportive therapy Discharge Disposition: Other Legal Status: Voluntary (Does not meet criteria for inpatient hospitalization, does not meets criteria for 5150 hold.) NEENA MORIN NP Oct 07, 2018 10:21
--- NOTE | 2018-10-07 10:33 | CONS ---
Date/Time of Note Date/Time of Note DATE: 10/07/18 TIME: 10:32 Assessment/Plan Assessment/Plan Assessment/Plan 1) likely infected hematoma (retroperitoneal with extension to psoas) continue with vanco/zosyn at present await cx results from today's aspiration 10/06 - strep species (possible enterococcus) in abscess cavity continue with zosyn, change vanco to zyvox in case VRE is present since pt is still spiking fevers to review CT with radiology urine cx is NGTD 10/07 - only alpha strep found which is a common vaginal balwinder d/c zyvox and continue with zosyn alone WBC and fevers are improved re-image when drainage is <30cc for 24 hours will order repeat cx from the drainage 2) adnexal masses unclear if these are benign or PID or nodules gc/clamydia RNA has been sent off RPR is pending, if not an STD then current antibiotics would be sufficient for PID await DRAPERY HANGER input Result Diagram: 10/07/18 0436 10/07/18 0436 Results 24hrs Laboratory Tests Test 10/07/18 04:36 White Blood Count 14.8 #H Red Blood Count 2.77 L Hemoglobin 7.9 L Hematocrit 25.1 L Mean Corpuscular Volume 90.6 Mean Corpuscular Hemoglobin 28.5 L Mean Corpuscular Hemoglobin Concent 31.5 L Red Cell Distribution Width 13.6 Platelet Count 627 #H Mean Platelet Volume 9.2 Immature Granulocytes % 1.800 H Neutrophils % 78.1 H Lymphocytes % 14.4 L Monocytes % 4.5 Eosinophils % 0.9 Basophils % 0.3 Nucleated Red Blood Cells % 0.0 Immature Granulocytes # 0.270 H Neutrophils # 11.5 H Lymphocytes # 2.1 Monocytes # 0.7 Eosinophils # 0.1 Basophils # 0.0 Nucleated Red Blood Cells # 0.0 Sodium Level 139 Potassium Level 3.7 Chloride Level 102 Carbon Dioxide Level 30 Anion Gap 7 Blood Urea Nitrogen 4 L Creatinine 0.52 Est Glomerular Filtrat Rate mL/min > 60 Glucose Level 106 Calcium Level 8.2 L Phosphorus Level 4.2 Magnesium Level 2.2 Consultation Date/Type/Reason Admit Date/Time Oct 04, 2018 at 14:05 Initial Consult Date 10/05/18 Type of Consult ID Requesting Provider: FAITH AGUAYO [employer] Exam/Review of Systems Vital Signs Vitals Vital Signs Date Temp Pulse Resp B/P (MAP) Pulse Ox O2 O2 Flow FiO2 Time Delivery Rate 10/07/18 97.7 88 14 108/57 100 Room Air 07:32 (74) Intake and Output 10/06/18 10/06/18 10/07/18 1515:00 23:00 07:00 IntakeIntake Total 620 ml 1300 ml 1540 ml OutputOutput Total 250 ml 100 ml BalanceBalance 370 ml 1300 ml 1440 ml Medications Medications Current Medications Sodium Chloride 1,000 ml @ 100 mls/hr Q10H IV Last administered on 10/07/18 01:51; Admin Dose 100 MLS/HR; Start 10/04/18 at 16:22 IV Flush (NS 3 ml) 3 ml PER PROTOCOL IV ; Start 10/04/18 at 16:30 Ondansetron HCl (Zofran Inj) 4 mg Q6H PRN IV NAUSEA AND/OR VOMITING; Start 10/04/18 at 16:30 Acetaminophen (Tylenol Tab) 650 mg Q6H PRN PO PAIN LEVEL 1-3 OR FEVER Last administered on 10/05/18at 20:38; Admin Dose 650 MG; Start 10/04/18 at 16:30 Acetaminophen/ Hydrocodone Bitart ([place] (5/325)) 1 tab Q6H PRN PO PAIN LEVEL 4-6 Last administered on 10/07/18at 09:50; Admin Dose 1 TAB; Start 10/04/18 at 16:30 Piperacillin Sod/ Tazobactam Sod 100 ml @ 200 mls/hr Q6 IVPB Last administered on 10/07/18at 05:21; Admin Dose 200 MLS/HR; Start 10/04/18 at 18:00 Docusate Sodium (Colace) 100 mg BID PO Last administered on 10/07/18 08:46; Admin Dose 100 MG; Start 10/04/18 at 21:00 Morphine Sulfate (morphine) 3 mg Q3H PRN IV SEVERE PAIN LEVEL 7-10 Last administered on 10/07/18 07:35; Admin Dose 3 MG; Start 10/05/18 at 16:30 Lorazepam (Ativan) 1 mg Q6H PRN IV Anxiety Last administered on 10/07/18 09:50; Admin Dose 1 MG; Start 10/07/18 at 09:00 DEREK DONATO MD Oct 07, 2018 10:33
--- NOTE | 2018-10-07 13:33 | CONS ---
Date/Time of Note Date/Time of Note DATE: 10/07/18 TIME: 13:30 Assessment/Plan Assessment/Plan Assessment/Plan Patient refuses oral pain control medications at this time she states when she feels better she would consider it. I do not see any reason why we should push her at this time. Her boyfriend was in the room and they were having a big difference of agreement on the use of pain control medications. Boyfriend said using heroin heroin heroin and I think you need to get off of everything. At that point patient stated that she did not want to change anything. Waiting for social work service consultation. Reviewed psychiatric consultation. Result Diagram: 10/07/18 0436 10/07/18 0436 Results 24hrs Laboratory Tests Test 10/07/18 04:36 White Blood Count 14.8 #H Red Blood Count 2.77 L Hemoglobin 7.9 L Hematocrit 25.1 L Mean Corpuscular Volume 90.6 Mean Corpuscular Hemoglobin 28.5 L Mean Corpuscular Hemoglobin Concent 31.5 L Red Cell Distribution Width 13.6 Platelet Count 627 #H Mean Platelet Volume 9.2 Immature Granulocytes % 1.800 H Neutrophils % 78.1 H Lymphocytes % 14.4 L Monocytes % 4.5 Eosinophils % 0.9 Basophils % 0.3 Nucleated Red Blood Cells % 0.0 Immature Granulocytes # 0.270 H Neutrophils # 11.5 H Lymphocytes # 2.1 Monocytes # 0.7 Eosinophils # 0.1 Basophils # 0.0 Nucleated Red Blood Cells # 0.0 Sodium Level 139 Potassium Level 3.7 Chloride Level 102 Carbon Dioxide Level 30 Anion Gap 7 Blood Urea Nitrogen 4 L Creatinine 0.52 Est Glomerular Filtrat Rate mL/min > 60 Glucose Level 106 Calcium Level 8.2 L Phosphorus Level 4.2 Magnesium Level 2.2 Consultation Date/Type/Reason Admit Date/Time Oct 04, 2018 at 14:05 Past Medical History Medical History: no pertinent history Medications Current Medications Sodium Chloride 1,000 ml @ 100 mls/hr Q10H IV Last administered on 10/07/18at 12:57; Admin Dose 100 MLS/HR; Start 10/04/18 at 16:22 IV Flush (NS 3 ml) 3 ml PER PROTOCOL IV ; Start 10/04/18 at 16:30 Ondansetron HCl (Zofran Inj) 4 mg Q6H PRN IV NAUSEA AND/OR VOMITING; Start 10/04/18 at 16:30 Acetaminophen (Tylenol Tab) 650 mg Q6H PRN PO PAIN LEVEL 1-3 OR FEVER Last administered on 10/05/18at 20:38; Admin Dose 650 MG; Start 10/04/18 at 16:30 Acetaminophen/ Hydrocodone Bitart ([place] (5/325)) 1 tab Q6H PRN PO PAIN LEVEL 4-6 Last administered on 10/07/18at 09:50; Admin Dose 1 TAB; Start 10/04/18 at 16:30 Piperacillin Sod/ Tazobactam Sod 100 ml @ 200 mls/hr Q6 IVPB Last administered on 10/07/18at 12:57; Admin Dose 200 MLS/HR; Start 10/04/18 at 18:00 Docusate Sodium (Colace) 100 mg BID PO Last administered on 10/07/18 08:46; Admin Dose 100 MG; Start 10/04/18 at 21:00 Morphine Sulfate (morphine) 3 mg Q3H PRN IV SEVERE PAIN LEVEL 7-10 Last administered on 10/07/18at 11:01; Admin Dose 3 MG; Start 10/05/18 at 16:30 Lorazepam (Ativan) 1 mg Q6H PRN IV Anxiety Last administered on 10/07/18 09:50; Admin Dose 1 MG; Start 10/07/18 at 09:00 Allergies: Coded Allergies: No Known Allergy (Unverified , 10/04/18) Past Surgical History Past Surgical Hx: no surgical history Social History Alcohol Use: none Smoking Status: Never smoker Drug Use: none Exam/Review of Systems Vital Signs Vitals Vital Signs Date Temp Pulse Resp B/P (MAP) Pulse Ox O2 O2 Flow FiO2 Time Delivery Rate 10/07/18 97.7 88 14 108/57 100 Room Air 07:32 (74) Intake and Output 10/06/18 10/06/18 10/07/18 1515:00 23:00 07:00 IntakeIntake Total 620 ml 1300 ml 1540 ml OutputOutput Total 250 ml 100 ml BalanceBalance 370 ml 1300 ml 1440 ml Exam Constitutional: distress, other (Agitated sad crying) Psych: anxiety Head: normocephalic, atraumatic; No lacerations, No hematomas, No other Eyes: No nl conjunctiva, No EOMI, No nl lids, No nl sclera, No PERRL, No icteric, No fundi, disc, No other Neck: supple, non-tender; No jvd, No bruits, No masses, No thyromegaly, No nuchal rigidity, No other Neurological: RN ONCOLOGY II-XII intact, nl mental status, nl speech, nl strength Medications Medications Current Medications Sodium Chloride 1,000 ml @ 100 mls/hr Q10H IV Last administered on 10/07/18 12:57; Admin Dose 100 MLS/HR; Start 10/04/18 at 16:22 IV Flush (NS 3 ml) 3 ml PER PROTOCOL IV ; Start 10/04/18 at 16:30 Ondansetron HCl (Zofran Inj) 4 mg Q6H PRN IV NAUSEA AND/OR VOMITING; Start 10/04/18 at 16:30 Acetaminophen (Tylenol Tab) 650 mg Q6H PRN PO PAIN LEVEL 1-3 OR FEVER Last administered on 10/05/18 20:38; Admin Dose 650 MG; Start 10/04/18 at 16:30 Acetaminophen/ Hydrocodone Bitart ([place] (5/325)) 1 tab Q6H PRN PO PAIN LEVEL 4-6 Last administered on 10/07/18 09:50; Admin Dose 1 TAB; Start 10/04/18 at 16:30 Piperacillin Sod/ Tazobactam Sod 100 ml @ 200 mls/hr Q6 IVPB Last administered on 10/07/18 12:57; Admin Dose 200 MLS/HR; Start 10/04/18 at 18:00 Docusate Sodium (Colace) 100 mg BID PO Last administered on 10/07/18 08:46; Admin Dose 100 MG; Start 10/04/18 at 21:00 Morphine Sulfate (morphine) 3 mg Q3H PRN IV SEVERE PAIN LEVEL 7-10 Last administered on 10/07/18 11:01; Admin Dose 3 MG; Start 10/05/18 at 16:30 Lorazepam (Ativan) 1 mg Q6H PRN IV Anxiety Last administered on 10/07/18 09:50; Admin Dose 1 MG; Start 10/07/18 at 09:00 ASHLEIGH CHOUDHURY Oct 07, 2018 13:33
[2018-10-07 14:24] VITALS: BP 108/60; PULSE 84; RESP 17
--- NOTE | 2018-10-07 17:50 | PN ---
Date/Time of Note Date/Time of Note DATE: 10/07/18 TIME: 17:46 Assessment/Plan VTE Prophylaxis Risk score (from Nsg)>0 risk: 4 SCD applied (from Nsg): Yes Pharmacological prophylaxis: NA/contraindicated Pharm contraindication: other (Hematoma) Lines/Catheters IV Catheter Type (from Nrsg): Peripheral IV Assessment/Plan Hospital Course SUBJECTIVE: Continues to have LLE pain. Asking to increase the pain medicine and anxiolytics. OBJECTIVE: Physical Exam General: Adequately build 33 year-old female lying in bed in no apparent distress. HEENT: Normocephalic, atraumatic. Eyes: Anicteric sclerae, conjunctivae clear. ENT: Nasal septum midline, oral mucosa is dry. Neck supple. Respiratory: Bilaterally clear breath sounds. No use of accessory muscles of respiration. No adventitious breath sounds. Cardiovascular: S1, S2 heard. No murmurs or gallops. Abdomen: Soft. LLQ tenderness to palpation. Left lower quadrant drain in place draining chocolate colored fluid. Genitourinary: Deferred. Back: No bruises. No tenderness along the lumbar spine. Extremities: No cyanosis, no clubbing, no edema. Peripheral pulses palpable. Neurologic: The patient is awake, alert, and oriented. Labs & Vitals per chart ASSESSMENT & PLAN 33-year-old female who denies any significant past medical history who is status post ground-level fall on 09/18/2018 and has been evaluated at multiple emergency rooms and an outpatient orthopedic surgeon for a left iliacus muscle abscess who presented to the emergency room on 10/04/2018 because of fevers, chills, and significant left hip/lower extremity pain with evidence of sepsis with leukocytosis, tachycardia, and febrile illness, who was admitted to inpatient setting for further treatment and evaluation. 1. Sepsis with leukocytosis, tachycardia, and febrile illness present on admission, most probably secondary to underlying intramuscular abscess, intra- abdominal abscess/fluid collection. -Continue antimicrobials as per ID. 2. Large left-sided retroperitoneal fluid collection/abscess with several foci of air measuring 11.3 x 6.0 x 4.3 cm. -Etiology unclear. -Continue antimicrobials as per ID. -S/P IR guided drainage on 10/05/2018 with the fluid growing alpha hemolytic streptococci. 3. Left iliacus, left psoas muscle abscess/hematoma. -Continue pain control. -Status post evaluation by orthopedic surgeon outside hospital who thought that this is too deep to be drained. -Avoid blood thinners. 4. Bilateral adnexal masses -Etiology unclear. -Pelvic ultrasound showed 3.4 cm heterogeneously hypoechoic nodules in the bilateral adnexa. -RPR negative. HIV negative. Pending chlamydia and gonorrhea. 5. Normocytic anemia. -Etiology unclear. -Monitor H&H closely. -Stool for OB pending. 6. Transaminitis. -Most probably secondary to underlying sepsis -Monitor LFTs. -Hepatitis panel negative. 7. Fluids, electrolytes, and nutrition. -Regular diet. 8. DVT prophylaxis. -Bilateral SCDs. 9. Plan. -Continue antimicrobials as per ID. -Continue pain control. -Await clinical improvement. The patient was seen in collaboration with Dr. Mcgrath. Result Diagram: 10/07/18 0436 10/07/18 0436 Results 24hrs Laboratory Tests Test 10/07/18 04:36 White Blood Count 14.8 #H Red Blood Count 2.77 L Hemoglobin 7.9 L Hematocrit 25.1 L Mean Corpuscular Volume 90.6 Mean Corpuscular Hemoglobin 28.5 L Mean Corpuscular Hemoglobin Concent 31.5 L Red Cell Distribution Width 13.6 Platelet Count 627 #H Mean Platelet Volume 9.2 Immature Granulocytes % 1.800 H Neutrophils % 78.1 H Lymphocytes % 14.4 L Monocytes % 4.5 Eosinophils % 0.9 Basophils % 0.3 Nucleated Red Blood Cells % 0.0 Immature Granulocytes # 0.270 H Neutrophils # 11.5 H Lymphocytes # 2.1 Monocytes # 0.7 Eosinophils # 0.1 Basophils # 0.0 Nucleated Red Blood Cells # 0.0 Sodium Level 139 Potassium Level 3.7 Chloride Level 102 Carbon Dioxide Level 30 Anion Gap 7 Blood Urea Nitrogen 4 L Creatinine 0.52 Est Glomerular Filtrat Rate mL/min > 60 Glucose Level 106 Calcium Level 8.2 L Phosphorus Level 4.2 Magnesium Level 2.2 Exam/Review of Systems Vital Signs Vitals Vital Signs Date Temp Pulse Resp B/P (MAP) Pulse Ox O2 O2 Flow FiO2 Time Delivery Rate 10/07/18 99.0 84 17 108/60 96 Room Air 14:24 (76) Intake and Output 10/06/18 10/06/18 10/07/18 1515:00 23:00 07:00 IntakeIntake Total 620 ml 1300 ml 1540 ml OutputOutput Total 250 ml 100 ml BalanceBalance 370 ml 1300 ml 1440 ml Medications Medications Current Medications Sodium Chloride 1,000 ml @ 100 mls/hr Q10H IV Last administered on 10/07/18 12:57; Admin Dose 100 MLS/HR; Start 10/04/18 at 16:22 IV Flush (NS 3 ml) 3 ml PER PROTOCOL IV ; Start 10/04/18 at 16:30 Ondansetron HCl (Zofran Inj) 4 mg Q6H PRN IV NAUSEA AND/OR VOMITING; Start 10/04/18 at 16:30 Acetaminophen (Tylenol Tab) 650 mg Q6H PRN PO PAIN LEVEL 1-3 OR FEVER Last administered on 10/05/18 20:38; Admin Dose 650 MG; Start 10/04/18 at 16:30 Acetaminophen/ Hydrocodone Bitart ([place] (5/325)) 1 tab Q6H PRN PO PAIN LEVEL 4-6 Last administered on 10/07/18 09:50; Admin Dose 1 TAB; Start 10/04/18 at 16:30 Piperacillin Sod/ Tazobactam Sod 100 ml @ 200 mls/hr Q6 IVPB Last administered on 10/07/18 17:07; Admin Dose 200 MLS/HR; Start 10/04/18 at 18:00 Docusate Sodium (Colace) 100 mg BID PO Last administered on 10/07/18 08:46; Admin Dose 100 MG; Start 10/04/18 at 21:00 Morphine Sulfate (morphine) 3 mg Q3H PRN IV SEVERE PAIN LEVEL 7-10 Last administered on 10/07/18 17:10; Admin Dose 3 MG; Start 10/05/18 at 16:30 Lorazepam (Ativan) 1 mg Q6H PRN IV Anxiety Last administered on 10/07/18 09:50; Admin Dose 1 MG; Start 10/07/18 at 09:00 FAITH AGUAYO NP Oct 07, 2018 17:50
[2018-10-07] MEDS ORDERED: LORAZEPAM 2 MG INJ IV ONE (18:00)
[2018-10-07 20:20] VITALS: BP 113/57; PULSE 91; RESP 18
[2018-10-08 01:39] VITALS: BP 112/63; PULSE 82; RESP 16
[2018-10-08] MEDS: morphine 4 MG/ML VIAL IV PRN ×3 (03:00→09:00)
[2018-10-08] MEDS: LORAZEPAM 2 MG INJ IV PRN ×3 (03:48→23:08)
[2018-10-08] MEDS: PIPER-TAZO 3.375 GM IV (PMX) 100 ML IVPB SCH ×3 (05:44→18:19)
[2018-10-08 07:57] VITALS: BP 117/66; PULSE 88; RESP 18
[2018-10-08] MEDS: DOCUSATE SODIUM 100 MG CAP PO SCH ×2 (09:00→20:34)
[2018-10-08] MEDS: HYDROmorphONE 2 MG/ML SYG IV PRN ×3 (12:02→20:34)
--- NOTE | 2018-10-08 13:48 | PN ---
Date/Time of Note Date/Time of Note DATE: 10/08/18 TIME: 13:47 Assessment/Plan VTE Prophylaxis Risk score (from Ns)>0 risk: 2 SCD applied (from Ns): No SCD contraindicated: patient refusal, other Pharmacological prophylaxis: other Pharm contraindication: other (Hematoma) Lines/Catheters IV Catheter Type (from Nrsg): Peripheral IV Urinary Cath still in place: No Assessment/Plan Hospital Course SUBJECTIVE: Continues to have LLE pain. The patient's pain medication has been increased. OBJECTIVE: Physical Exam General: Adequately build 33 year-old female lying in bed in no apparent distress. HEENT: Normocephalic, atraumatic. Eyes: Anicteric sclerae, conjunctivae clear. ENT: Nasal septum midline, oral mucosa is dry. Neck supple. Respiratory: Bilaterally clear breath sounds. No use of accessory muscles of respiration. No adventitious breath sounds. Cardiovascular: S1, S2 heard. No murmurs or gallops. Abdomen: Soft. LLQ tenderness to palpation. Left lower quadrant drain in place draining chocolate colored fluid. Genitourinary: Deferred. Back: No bruises. No tenderness along the lumbar spine. Extremities: No cyanosis, no clubbing, no edema. Peripheral pulses palpable. Neurologic: The patient is awake, alert, and oriented. Labs & Vitals per chart ASSESSMENT & PLAN 33-year-old female who denies any significant past medical history who is status post ground-level fall on 09/18/2018 and has been evaluated at multiple emergency rooms and an outpatient orthopedic surgeon for a left iliacus muscle abscess who presented to the emergency room on 10/04/2018 because of fevers, chills, and significant left hip/lower extremity pain with evidence of sepsis with leukocytosis, tachycardia, and febrile illness, who was admitted to inpatient setting for further treatment and evaluation. 1. Sepsis with leukocytosis, tachycardia, and febrile illness present on admission, most probably secondary to underlying intramuscular abscess, intra- abdominal abscess/fluid collection. -Continue antimicrobials as per ID. 2. Large left-sided retroperitoneal fluid collection/abscess with several foci of air measuring 11.3 x 6.0 x 4.3 cm. -Etiology unclear. -Continue antimicrobials as per ID. -S/P IR guided drainage on 10/05/2018 with the fluid growing alpha hemolytic streptococci. 3. Left iliacus, left psoas muscle abscess/hematoma. -Continue pain control. -Status post evaluation by orthopedic surgeon outside hospital who thought that this is too deep to be drained. -Avoid blood thinners. 4. Bilateral adnexal masses -Etiology unclear. -Pelvic ultrasound showed 3.4 cm heterogeneously hypoechoic nodules in the bilateral adnexa. -RPR negative. HIV negative. Pending chlamydia and gonorrhea. 5. Normocytic anemia. -Etiology unclear. -Monitor H&H closely. -Stool for OB pending. 6. Transaminitis. -Most probably secondary to underlying sepsis -Monitor LFTs. -Hepatitis panel negative. 7. Fluids, electrolytes, and nutrition. -Regular diet. 8. DVT prophylaxis. -Bilateral SCDs. 9. Plan. -Continue antimicrobials as per ID. -Continue pain control. -Await clinical improvement. The patient was seen in collaboration with Dr. Mcgrath. Result Diagram: 10/08/1822 10/08/18 0522 Results 24hrs Laboratory Tests Test 10/08/18 05:22 White Blood Count 15.1 H Red Blood Count 2.83 L Hemoglobin 8.1 L Hematocrit 25.5 L Mean Corpuscular Volume 90.1 Mean Corpuscular Hemoglobin 28.6 L Mean Corpuscular Hemoglobin Concent 31.8 L Red Cell Distribution Width 13.5 Platelet Count 709 H Mean Platelet Volume 9.0 Immature Granulocytes % 1.400 H Neutrophils % 77.2 H Lymphocytes % 15.1 Monocytes % 4.9 Eosinophils % 1.3 Basophils % 0.1 Nucleated Red Blood Cells % 0.0 Immature Granulocytes # 0.210 H Neutrophils # 11.6 H Lymphocytes # 2.3 Monocytes # 0.7 Eosinophils # 0.2 Basophils # 0.0 Nucleated Red Blood Cells # 0.0 Sodium Level 139 Potassium Level 4.3 Chloride Level 100 Carbon Dioxide Level 29 Anion Gap 10 Blood Urea Nitrogen 4 L Creatinine 0.49 Est Glomerular Filtrat Rate mL/min > 60 Glucose Level 79 Calcium Level 8.7 Phosphorus Level 5.0 H Magnesium Level 2.2 Total Bilirubin 0.2 Direct Bilirubin 0.00 Indirect Bilirubin 0.2 Aspartate Amino Transf (AST/SGOT) 34 Alanine Aminotransferase (ALT/SGPT) 25 Alkaline Phosphatase 237 H Creatine Kinase 29 Total Protein 6.9 Albumin 2.9 L Globulin 4.00 H Albumin/Globulin Ratio 0.72 Exam/Review of Systems Vital Signs Vitals Vital Signs Date Temp Pulse Resp B/P (MAP) Pulse Ox O2 O2 Flow FiO2 Time Delivery Rate 10/08/18 99.2 88 18 117/66 95 Room Air 07:57 (83) Intake and Output 10/07/18 10/07/18 10/08/18 1515:00 23:00 07:00 IntakeIntake Total 1200 ml 1460 ml 560 ml OutputOutput Total 150 ml BalanceBalance 1200 ml 1310 ml 560 ml Medications Medications Current Medications IV Flush (NS 3 ml) 3 ml PER PROTOCOL IV ; Start 10/04/18 at 16:30 Ondansetron HCl (Zofran Inj) 4 mg Q6H PRN IV NAUSEA AND/OR VOMITING; Start 10/04/18 at 16:30 Acetaminophen (Tylenol Tab) 650 mg Q6H PRN PO PAIN LEVEL 1-3 OR FEVER Last administered on 10/05/18 20:38; Admin Dose 650 MG; Start 10/04/18 at 16:30 Acetaminophen/ Hydrocodone Bitart ([employer] (5/325)) 1 tab Q6H PRN PO PAIN LEVEL 4-6 Last administered on 10/07/18 09:50; Admin Dose 1 TAB; Start 10/04/18 at 16:30 Piperacillin Sod/ Tazobactam Sod 100 ml @ 200 mls/hr Q6 IVPB Last administered on 10/08/18 12:45; Admin Dose 200 MLS/HR; Start 10/04/18 at 18:00 Docusate Sodium (Colace) 100 mg BID PO Last administered on 10/08/18 09:00; Admin Dose 100 MG; Start 10/04/18 at 21:00 Lorazepam (Ativan) 1 mg Q6H PRN IV Anxiety Last administered on 10/08/18 09:55; Admin Dose 1 MG; Start 10/07/18 at 09:00 Hydromorphone HCl (Dilaudid) 2 mg Q4H PRN IV SEVERE PAIN LEVEL 7-10 Last administered on 10/08/18 12:02; Admin Dose 2 MG; Start 10/08/18 at 12:00 FAITH AGUAYO NP Oct 08, 2018 13:48
[2018-10-08 14:56] VITALS: BP 106/57; PULSE 91; RESP 18
--- NOTE | 2018-10-08 15:04 | PN ---
Date/Time of Note Date/Time of Note DATE: 10/08/18 TIME: 14:55 Assessment/Plan Lines/Catheters IV [facility] Type ([facility]): Peripheral IV Cao in Place (from Nrs): No Assessment/Plan Chief Complaint/Hosp Course 1. Large left-sided retroperitoneal focal fluid collection with several foci of air adjacent to the left psoas muscle with fatty stranding: Concern for infection status post IR drain -continue drain -cont abx per sensitivity>per id -highly encourage cessation vaping and other illicit/recreational drugs 2. Sepsis: With significant leukocytosis: WBC improving -As above -Antibiotics per ID -Fluids 3. illicit drug use -highly encourage cessation 4. Left flank and hip pain: Minimally improved -Pain management 5. Normocytic normochromic anemia: -Monitor and transfuse as needed 6. Thrombocytosis: -Trend 7. Elevated AST and alk phos: -Monitor 8. Hypoalbuminemia -Monitor -Treat infections 9. Anxiety: psych optimization 10. Bilateral adnexal mass: -Gynecology consult Thank you. Patient seen and examined in collaboration with Dr. Damien Malhotra. Subjective 24 Hr Interval Summary Feels better. Still w large drain output. Min temp. No chills, sob, congested cough, cp, palpitations, topete, dizziness, n/v/d/dysuria. Exam/Review of Systems Vital Signs Vitals Vital Signs Date Temp Pulse Resp B/P (MAP) Pulse Ox O2 O2 Flow FiO2 Time Delivery Rate 10/08/18 99.2 88 18 117/66 95 Room Air 07:57 (83) Intake and Output 10/07/18 10/07/18 10/08/18 1414:59 22:59 06:59 IntakeIntake Total 1200 ml 1460 ml 560 ml OutputOutput Total 150 ml BalanceBalance 1200 ml 1310 ml 560 ml Exam Free Text/Dictation Constitutional: alert, oriented Psych: no complaints, nl mood/affect Head: normocephalic, atraumatic Eyes: nl conjunctiva, EOMI, nl lids, nl sclera ENMT: nl external ears & nose, nl lips & teeth, mucosa pink and moist Neck: supple, non-tender; No jvd Respiratory: normal air movement; No congested cough, No labored breathing Cardiovascular: regular rate and rhythm, nl pulses Gastrointestinal: soft, non-tender Genitourinary - Female: nl external genitalia Musculoskeletal: nl extremities to inspection, nl gait and stance, other (Tenderness and edema left flank/back/inguinal/thigh-continuing to improve); left lower quadrant pigtail drain to bulb suction (purulent drainage) Extremities: normal pulses, pitting pedal edema (1+) Neurological: No nl speech (Slow speech) Skin: No ecchymosis Results Result Diagram: 10/08/18 0522 10/08/18 0522 MARIYA CASTLE NP Oct 08, 2018 15:03
[2018-10-08 20:48] VITALS: BP 104/50; PULSE 85; RESP 18
[2018-10-09] MEDS: PIPER-TAZO 3.375 GM IV (PMX) 100 ML IVPB SCH ×5 (00:23→23:53)
[2018-10-09] MEDS: HYDROmorphONE 2 MG/ML SYG IV PRN ×6 (00:40→21:13)
[2018-10-09 01:40] VITALS: BP 106/57; PULSE 74; RESP 18
[2018-10-09] MEDS: LORAZEPAM 2 MG INJ IV PRN ×2 (07:32→20:23)
[2018-10-09 07:54] VITALS: BP 96/53; PULSE 87; RESP 16
[2018-10-09] MEDS: DOCUSATE SODIUM 100 MG CAP PO SCH ×2 (08:40→20:27)
--- NOTE | 2018-10-09 10:30 | PN ---
Date/Time of Note Date/Time of Note DATE: 10/09/18 TIME: 10:29 Assessment/Plan VTE Prophylaxis Risk score (from Ns)>0 risk: 2 SCD applied (from Ns): No SCD contraindicated: patient refusal Pharmacological prophylaxis: NA/contraindicated Pharm contraindication: other (Hematoma) Lines/Catheters IV Catheter Type (from [facility]): Peripheral IV Urinary Cath still in place: No Assessment/Plan Hospital Course SUBJECTIVE: Patient in good spirits today. Left thigh and left abdominal pain better. OBJECTIVE: Physical Exam General: Adequately build 33 year-old female lying in bed in no apparent distress. HEENT: Normocephalic, atraumatic. Eyes: Anicteric sclerae, conjunctivae clear. ENT: Nasal septum midline, oral mucosa is dry. Neck supple. Respiratory: Bilaterally clear breath sounds. No use of accessory muscles of respiration. No adventitious breath sounds. Cardiovascular: S1, S2 heard. No murmurs or gallops. Abdomen: Soft. LLQ tenderness to palpation. Left lower quadrant drain in place draining chocolate colored fluid. Genitourinary: Deferred. Back: No bruises. No tenderness along the lumbar spine. Extremities: No cyanosis, no clubbing, no edema. Peripheral pulses palpable. Neurologic: The patient is awake, alert, and oriented. Labs & Vitals per chart ASSESSMENT & PLAN 33-year-old female who denies any significant past medical history who is status post ground-level fall on 09/18/2018 and has been evaluated at multiple emergency rooms and an outpatient orthopedic surgeon for a left iliacus muscle abscess who presented to the emergency room on 10/04/2018 because of fevers, chills, and significant left hip/lower extremity pain with evidence of sepsis with leukocytosis, tachycardia, and febrile illness, who was admitted to inpatient setting for further treatment and evaluation. 1. Sepsis with leukocytosis, tachycardia, and febrile illness present on admission, most probably secondary to underlying intramuscular abscess, intra- abdominal abscess/fluid collection. -Continue antimicrobials as per ID. 2. Large left-sided retroperitoneal fluid collection/abscess with several foci of air measuring 11.3 x 6.0 x 4.3 cm. -Etiology unclear. -Continue antimicrobials as per ID. -S/P IR guided drainage on 10/05/2018 with the fluid growing alpha hemolytic streptococci. 3. Left iliacus, left psoas muscle abscess/hematoma. -Continue pain control. -Status post evaluation by orthopedic surgeon outside hospital who thought that this is too deep to be drained. -Avoid blood thinners. 4. Bilateral adnexal masses -Etiology unclear. -Pelvic ultrasound showed 3.4 cm heterogeneously hypoechoic nodules in the bilateral adnexa. -RPR negative. HIV negative. Chlamydia and gonorrhea negative. 5. Normocytic anemia. -Etiology unclear. -Monitor H&H closely. -Stool for OB x1 negative. 6. Transaminitis. -Most probably secondary to underlying sepsis -Monitor LFTs. -Hepatitis panel negative. 7. Fluids, electrolytes, and nutrition. -Regular diet. 8. DVT prophylaxis. -Bilateral SCDs (patient refusing). 9. Plan. -Continue antimicrobials as per ID. -Continue pain control. -Await clinical improvement. The patient was seen in collaboration with Dr. Mcgrath. Result Diagram: 10/09/18 0434 10/09/18 0434 Results 24hrs Laboratory Tests Test 10/09/18 04:34 10/09/18 08:30 White Blood Count 9.9 # Red Blood Count 2.98 L Hemoglobin 8.6 L Hematocrit 27.3 L Mean Corpuscular Volume 91.6 Mean Corpuscular Hemoglobin 28.9 L Mean Corpuscular Hemoglobin Concent 31.5 L Red Cell Distribution Width 13.6 Platelet Count 742 H Mean Platelet Volume 8.7 Immature Granulocytes % 1.400 H Neutrophils % 72.5 Lymphocytes % 18.1 Monocytes % 6.0 Eosinophils % 1.7 Basophils % 0.3 Nucleated Red Blood Cells % 0.0 Immature Granulocytes # 0.140 H Neutrophils # 7.2 Lymphocytes # 1.8 Monocytes # 0.6 Eosinophils # 0.2 Basophils # 0.0 Nucleated Red Blood Cells # 0.0 Sodium Level 139 Potassium Level 4.2 Chloride Level 99 Carbon Dioxide Level 32 H Anion Gap 8 Blood Urea Nitrogen 7 Creatinine 0.54 Est Glomerular Filtrat Rate mL/min > 60 Glucose Level 120 # Calcium Level 8.5 Phosphorus Level 4.8 Magnesium Level 2.4 Total Bilirubin 0.1 L Direct Bilirubin 0.00 Indirect Bilirubin 0.1 Aspartate Amino Transf (AST/SGOT) 33 Alanine Aminotransferase (ALT/SGPT) 32 Alkaline Phosphatase 229 H Total Protein 7.0 Albumin 2.9 L Globulin 4.10 H Albumin/Globulin Ratio 0.70 Stool Occult Blood NEGATIVE Exam/Review of Systems Vital Signs Vitals Vital Signs Date Temp Pulse Resp B/P (MAP) Pulse Ox O2 O2 Flow FiO2 Time Delivery Rate 10/09/18 97.6 87 16 96/53 (67) 98 Room Air 07:54 Intake and Output 10/08/18 10/08/18 10/09/18 1515:00 23:00 07:00 IntakeIntake Total 1180 ml 460 ml 200 ml OutputOutput Total 40 ml 180 ml BalanceBalance 1180 ml 420 ml 20 ml Medications Medications Current Medications IV Flush (NS 3 ml) 3 ml PER PROTOCOL IV ; Start 10/04/18 at 16:30 Ondansetron HCl (Zofran Inj) 4 mg Q6H PRN IV NAUSEA AND/OR VOMITING; Start 10/04/18 at 16:30 Acetaminophen (Tylenol Tab) 650 mg Q6H PRN PO PAIN LEVEL 1-3 OR FEVER Last administered on 10/05/18at 20:38; Admin Dose 650 MG; Start 10/04/18 at 16:30 Acetaminophen/ Hydrocodone Bitart ([place] (5/325)) 1 tab Q6H PRN PO PAIN LEVEL 4-6 Last administered on 10/07/18at 09:50; Admin Dose 1 TAB; Start 10/04/18 at 16:30 Piperacillin Sod/ Tazobactam Sod 100 ml @ 200 mls/hr Q6 IVPB Last administered on 10/09/18at 05:44; Admin Dose 200 MLS/HR; Start 10/04/18 at 18:00 Docusate Sodium (Colace) 100 mg BID PO Last administered on 10/09/18at 08:40; Admin Dose 100 MG; Start 10/04/18 at 21:00 Lorazepam (Ativan) 1 mg Q6H PRN IV Anxiety Last administered on 10/09/18at 07:32; Admin Dose 1 MG; Start 10/07/18 at 09:00 Hydromorphone HCl (Dilaudid) 1 mg Q4H PRN IV SEVERE PAIN LEVEL 7-10; Start 10/09/18 at 12:00 FAITH AGUAYO NP Oct 09, 2018 10:30
[2018-10-09] MEDS: HYDROCODONE/APAP (5/325) TAB PO PRN ×3 (11:01→23:53)
--- NOTE | 2018-10-09 13:23 | PN ---
Date/Time of Note Date/Time of Note DATE: 10/09/18 TIME: : Assessment/Plan Lines/Catheters IV Catheter Type (from [facility]): Peripheral IV Cao in Place (from [facility]): No Assessment/Plan Chief Complaint/Hosp Course 1. Large left-sided retroperitoneal focal fluid collection with several foci of air adjacent to the left psoas muscle with fatty stranding: Concern for infection status post IR drain -continue drain until drainage amount much improved -cont abx per sensitivity>per id -highly encourage cessation vaping and other illicit/recreational drugs 2. Sepsis: With significant leukocytosis: WBC normalized -As above -Antibiotics per ID -Fluids 3. illicit drug use -highly encourage cessation 4. Left flank and hip pain: much improved -Pain management 5. Normocytic normochromic anemia: -Monitor and transfuse as needed 6. Thrombocytosis: -consider heme consult if persistent -Trend 7. Elevated AST and alk phos: ast normalized, alk phos improving -Monitor 8. Hypoalbuminemia -Monitor -Treat infections 9. Anxiety: psych optimization 10. Bilateral adnexal mass: -Gynecology consult Thank you. Patient seen and examined in collaboration with Dr. Damien Malhotra. Subjective 24 Hr Interval Summary continuing to improve. Drain output becoming less purulent. WBC normalized. No fevers, chills, sob, congested cough, cp, palpitations, topete, dizziness, n/v/d/dysuria. Exam/Review of Systems Vital Signs Vitals Vital Signs Date Temp Pulse Resp B/P (MAP) Pulse Ox O2 O2 Flow FiO2 Time Delivery Rate 10/09/18 97.6 87 16 96/53 (67) 98 Room Air 07:54 Intake and Output 10/08/18 10/08/18 10/09/18 1515:00 23:00 07:00 IntakeIntake Total 1180 ml 460 ml 200 ml OutputOutput Total 40 ml 180 ml BalanceBalance 1180 ml 420 ml 20 ml Exam Free Text/Dictation Constitutional: alert, oriented Psych: no complaints, nl mood/affect Head: normocephalic, atraumatic Eyes: nl conjunctiva, EOMI, nl lids, nl sclera ENMT: nl external ears & nose, nl lips & teeth, mucosa pink and moist Neck: supple, non-tender; No jvd Respiratory: normal air movement; No congested cough, No labored breathing Cardiovascular: regular rate and rhythm, nl pulses Gastrointestinal: soft, non-tender Genitourinary - Female: nl external genitalia Musculoskeletal: nl extremities to inspection, nl gait and stance, other (Tenderness and edema left flank/back/inguinal/thigh-much improved); left lower quadrant pigtail drain to bulb suction (purulent drainage/ serous drainage noted in tube) Extremities: normal pulses, pitting pedal edema (1+) Neurological: nl speech Skin: No ecchymosis Results Result Diagram: 10/09/18 0434 10/09/18 0434 MARIYA CASTLE NP Oct 09, 2018 13:23
[2018-10-09 14:40] VITALS: BP 101/61; PULSE 94; RESP 18
[2018-10-09 19:40] VITALS: BP 115/65; PULSE 84; RESP 18
[2018-10-10] MEDS: HYDROmorphONE 2 MG/ML SYG IV PRN ×3 (01:07→10:39)
[2018-10-10 01:20] VITALS: BP 114/58; PULSE 74; RESP 18
[2018-10-10] MEDS: PIPER-TAZO 3.375 GM IV (PMX) 100 ML IVPB SCH ×4 (05:56→23:31)
[2018-10-10 07:41] VITALS: BP 114/66; PULSE 81; RESP 20
[2018-10-10] MEDS: HYDROCODONE/APAP (5/325) TAB PO PRN (07:41)
[2018-10-10] MEDS: DOCUSATE SODIUM 100 MG CAP PO SCH ×2 (07:41→20:49)
--- NOTE | 2018-10-10 08:05 | CONS ---
Date/Time of Note Date/Time of Note DATE: 10/10/18 TIME: 08:02 Assessment/Plan Assessment/Plan Hospital Course 1) likely infected hematoma (retroperitoneal with extension to psoas) continue with vanco/zosyn at present await cx results from today's aspiration 10/06 - strep species (possible enterococcus) in abscess cavity continue with zosyn, change vanco to zyvox in case VRE is present since pt is still spiking fevers to review CT with radiology urine cx is NGTD 10/07 - only alpha strep found which is a common vaginal balwinder d/c zyvox and continue with zosyn alone WBC and fevers are improved re-image when drainage is <30cc for 24 hours will order repeat cx from the drainage 10/10 - spoke to nurse regarding no repeat cx of drainage done yet GC/chlamydia were negative pt had only 30cc of drainage in last 24 hours, will order CT abd/pelv with extent down to mid thigh continue with zosyn fever has resolved and WBC is back to WNL 2) adnexal masses unclear if these are benign or PID or nodules gc/clamydia RNA has been sent off RPR is pending, if not an STD then current antibiotics would be sufficient for PID await [employer] LE[employer] input Result Diagram: 10/10/18 0533 10/10/18 0533 Results 24hrs Laboratory Tests Test 10/09/18 08:30 10/10/18 05:33 Stool Occult Blood NEGATIVE White Blood Count 9.5 Red Blood Count 3.21 L Hemoglobin 9.1 L Hematocrit 29.2 L Mean Corpuscular Volume 91.0 Mean Corpuscular Hemoglobin 28.3 L Mean Corpuscular Hemoglobin Concent 31.2 L Red Cell Distribution Width 13.1 Platelet Count 856 H Mean Platelet Volume 8.6 Immature Granulocytes % 0.900 H Neutrophils % Lymphocytes % Monocytes % Eosinophils % Basophils % Nucleated Red Blood Cells % 0.0 Immature Granulocytes # 0.090 H Neutrophils # Lymphocytes # Monocytes # Eosinophils # Basophils # Nucleated Red Blood Cells # Pathologist Review (Hematology) YES Sodium Level 141 Potassium Level 4.3 Chloride Level 101 Carbon Dioxide Level 29 Anion Gap 11 Blood Urea Nitrogen 5 L Creatinine 0.42 L Est Glomerular Filtrat Rate mL/min > 60 Glucose Level 100 Calcium Level 9.2 Phosphorus Level 4.6 Magnesium Level 2.4 Total Bilirubin 0.1 L Direct Bilirubin 0.00 Indirect Bilirubin 0.1 Aspartate Amino Transf (AST/SGOT) 31 Alanine Aminotransferase (ALT/SGPT) 26 Alkaline Phosphatase 216 H Total Protein 7.8 Albumin 3.3 Globulin 4.50 H Albumin/Globulin Ratio 0.73 Consultation Date/Type/Reason Admit Date/Time Oct 04, 2018 at 14:05 Initial Consult Date 10/05/18 Type of Consult ID Requesting Provider: FAITH AGUAYO RECRUITING SPECIALIST 24 HR Interval Summary Free Text/Dictation pt still has significant pain from L pelvic area down to knee no N, V, D no further fevers Exam/Review of Systems Vital Signs Vitals Vital Signs Date Temp Pulse Resp B/P (MAP) Pulse Ox O2 O2 Flow FiO2 Time Delivery Rate 10/10/18 98.2 81 20 114/66 96 Room Air 07:41 (82) Intake and Output 10/09/18 10/09/18 10/10/18 1414:59 22:59 06:59 IntakeIntake Total 340 ml 580 ml 1640 ml OutputOutput Total 20 ml 310 ml BalanceBalance 340 ml 560 ml 1330 ml Exam Constitutional: alert, oriented Eyes: nl sclera Respiratory: clear to auscultation Cardiovascular: regular rate and rhythm Gastrointestinal: soft, non-tender Medications Medications Current Medications IV Flush (NS 3 ml) 3 ml PER PROTOCOL IV ; Start 10/04/18 at 16:30 Ondansetron HCl (Zofran Inj) 4 mg Q6H PRN IV NAUSEA AND/OR VOMITING; Start 10/04/18 at 16:30 Acetaminophen (Tylenol Tab) 650 mg Q6H PRN PO PAIN LEVEL 1-3 OR FEVER Last administered on 10/05/18at 20:38; Admin Dose 650 MG; Start 10/04/18 at 16:30 Acetaminophen/ Hydrocodone Bitart ([place] (5/325)) 1 tab Q6H PRN PO PAIN LEVEL 4-6 Last administered on 10/10/18at 07:41; Admin Dose 1 TAB; Start 10/04/18 at 16:30 Piperacillin Sod/ Tazobactam Sod 100 ml @ 200 mls/hr Q6 IVPB Last administered on 10/10/18at 05:56; Admin Dose 200 MLS/HR; Start 10/04/18 at 18:00 Docusate Sodium (Colace) 100 mg BID PO Last administered on 10/10/18at 07:41; Admin Dose 100 MG; Start 10/04/18 at 21:00 Lorazepam (Ativan) 1 mg Q6H PRN IV Anxiety Last administered on 10/09/18at 20:23; Admin Dose 1 MG; Start 10/07/18 at 09:00 Hydromorphone HCl (Dilaudid) 1 mg Q4H PRN IV SEVERE PAIN LEVEL 7-10 Last administered on 10/10/18at 05:13; Admin Dose 1 MG; Start 10/09/18 at 12:00 DEREK DONATO MD Oct 10, 2018 08:05
[2018-10-10] MEDS: KETOROLAC 15 MG INJ IV PRN (09:09)
[2018-10-10] MEDS ORDERED: SOD CHLORIDE 0.9% 100 ML ONE (09:18)
[2018-10-10] MEDS ORDERED: IOHEXOL 300MG/ML 150 ML BTL ONE (09:18)
--- NOTE | 2018-10-10 10:50 | PN ---
Date/Time of Note Date/Time of Note DATE: 10/10/18 TIME: 10:47 Assessment/Plan VTE Prophylaxis Risk score (from Ns)>0 risk: 1 SCD applied (from Ns): Yes Pharmacological prophylaxis: NA/contraindicated Pharm contraindication: bleeding Lines/Catheters IV Catheter Type (from Nrsg): Peripheral IV Urinary Cath still in place: No Assessment/Plan Hospital Course Assessment and plan 1. Infected RP hematoma, stable follow-up on cultures/ consolidated antibiotics. treat pain 2. Retroperitoneal hematoma post fall, trivial? Hold Lovenox/heparin due to hematoma 3. Debility may need PT home safety on discharge. Continue ambulation when Stable 4. Constipation 5. Adnexal mass? for LPN MEDICAL ASSISTANT eval; may need pelvic ultrasound or MRI on follow-up 6. Anemia likely iron deficiency vs acute blood loss, may need to hold Lovenox Subjective: Events noted Objective: Vital signs stable Physical exam No pallor adenopathy Regular Clear Bowel sounds diminished mild tender nondistended no RG No edema Result Diagram: 10/10/18 0533 10/10/18 0533 Results 24hrs Laboratory Tests Test 10/10/18 05:33 White Blood Count 9.5 Red Blood Count 3.21 L Hemoglobin 9.1 L Hematocrit 29.2 L Mean Corpuscular Volume 91.0 Mean Corpuscular Hemoglobin 28.3 L Mean Corpuscular Hemoglobin Concent 31.2 L Red Cell Distribution Width 13.1 Platelet Count 856 H Mean Platelet Volume 8.6 Immature Granulocytes % 0.900 H Neutrophils % Segmented Neutrophils % (Manual) 68 Band Neutrophils % (Manual) 6 H Lymphocytes % Lymphocytes % (Manual) 20 Monocytes % Monocytes % (Manual) 4 Eosinophils % Eosinophils % (Manual) 4 Basophils % Nucleated Red Blood Cells % 0.0 Immature Granulocytes # 0.090 H Neutrophils # Neutrophils # (Manual) 6.5 Band Neutrophils # 0.5 Lymphocytes (Manual) 1.9 Lymphocytes # Monocytes # Monocytes # (Manual) 0.3 Eosinophils # Basophils # Nucleated Red Blood Cells # Pathologist Review (Hematology) YES Platelet Estimate INCREASED Giant Platelets 1 H Polychromasia 3+ Sodium Level 141 Potassium Level 4.3 Chloride Level 101 Carbon Dioxide Level 29 Anion Gap 11 Blood Urea Nitrogen 5 L Creatinine 0.42 L Est Glomerular Filtrat Rate mL/min > 60 Glucose Level 100 Calcium Level 9.2 Phosphorus Level 4.6 Magnesium Level 2.4 Total Bilirubin 0.1 L Direct Bilirubin 0.00 Indirect Bilirubin 0.1 Aspartate Amino Transf (AST/SGOT) 31 Alanine Aminotransferase (ALT/SGPT) 26 Alkaline Phosphatase 216 H Total Protein 7.8 Albumin 3.3 Globulin 4.50 H Albumin/Globulin Ratio 0.73 Exam/Review of Systems Vital Signs Vitals Vital Signs Date Temp Pulse Resp B/P (MAP) Pulse Ox O2 O2 Flow FiO2 Time Delivery Rate 10/10/18 98.2 81 20 114/66 96 Room Air 07:41 (82) Intake and Output 10/09/18 10/09/18 10/10/18 1515:00 23:00 07:00 IntakeIntake Total 340 ml 580 ml 1640 ml OutputOutput Total 20 ml 310 ml BalanceBalance 340 ml 560 ml 1330 ml Medications Medications Current Medications IV Flush (NS 3 ml) 3 ml PER PROTOCOL IV ; Start 10/04/18 at 16:30 Ondansetron HCl (Zofran Inj) 4 mg Q6H PRN IV NAUSEA AND/OR VOMITING; Start 10/04/18 at 16:30 Acetaminophen (Tylenol Tab) 650 mg Q6H PRN PO PAIN LEVEL 1-3 OR FEVER Last administered on 10/05/18 20:38; Admin Dose 650 MG; Start 10/04/18 at 16:30 Acetaminophen/ Hydrocodone Bitart ([place] (5/325)) 1 tab Q6H PRN PO PAIN LEVEL 4-6 Last administered on 10/10/18 07:41; Admin Dose 1 TAB; Start 10/04/18 at 16:30 Piperacillin Sod/ Tazobactam Sod 100 ml @ 200 mls/hr Q6 IVPB Last administered on 10/10/18 05:56; Admin Dose 200 MLS/HR; Start 10/04/18 at 18:00 Docusate Sodium (Colace) 100 mg BID PO Last administered on 10/10/18 07:41; Admin Dose 100 MG; Start 10/04/18 at 21:00 Lorazepam (Ativan) 1 mg Q6H PRN IV Anxiety Last administered on 10/09/18 20:23; Admin Dose 1 MG; Start 10/07/18 at 09:00 Hydromorphone HCl (Dilaudid) 1 mg Q4H PRN IV SEVERE PAIN LEVEL 7-10 Last administered on 1/14/19at 10:39; Admin Dose 1 MG; Start 10/09/18 at 12:00 Ketorolac Tromethamine (Toradol) 15 mg Q6H PRN IV PAIN Last administered on 10/10/18 09:09; Admin Dose 15 MG; Start 10/10/18 at 09:00; Stop 10/13/18 at 08:59 DARIUS LEGER MD Oct 10, 2018 10:50
[2018-10-10] MEDS ORDERED: ONDANSETRON 4 MG INJ IV PRN (11:00)
--- NOTE | 2018-10-10 11:10 | CONS ---
Date/Time of Note Date/Time of Note DATE: 10/10/18 TIME: 11:08 Consult Date/Type/Reason Admit Date/Time Oct 04, 2018 at 14:05 Initial Consult Date 10/05/18 Requesting Provider: FAITH AGUAYO ENVELOPE FOLD OPERATOR Subjective Postdated note for hospital visit October 09, 2018. She is doing reasonably well on the current dose of Dilaudid 2 mg every 4 as needed, from a pain management standpoint however she feels like she is somewhat oversedated and difficult to wake up in the morning. She requests lowering her dose Retroperitoneal fluid collection/abscess measuring 11 x 3 x 6 0.0 x 4.3 Bilateral adnexal masses Left iliac left psoas muscle abscess and hematoma Acute pain management She requests lowering her dose did tell him to 1 mg every 4 as needed. Pain is well controlled she has periods of somnolence throughout the day. Objective Vital Signs Date Temp Pulse Resp B/P (MAP) Pulse Ox O2 O2 Flow FiO2 Time Delivery Rate 10/10/18 98.2 81 20 114/66 96 Room Air 07:41 (82) Intake and Output 10/09/18 10/09/18 10/10/18 1515:00 23:00 07:00 IntakeIntake Total 340 ml 580 ml 1640 ml OutputOutput Total 20 ml 310 ml BalanceBalance 340 ml 560 ml 1330 ml Exam Neuro oriented x3 cranial nerves II through XII intact Sensory findings grossly within normal limits General no acute distress Results/Medications Result Diagram: 10/10/18 0533 10/10/18 0533 Results 24 hrs Laboratory Tests Test 10/10/18 05:33 White Blood Count 9.5 Red Blood Count 3.21 L Hemoglobin 9.1 L Hematocrit 29.2 L Mean Corpuscular Volume 91.0 Mean Corpuscular Hemoglobin 28.3 L Mean Corpuscular Hemoglobin Concent 31.2 L Red Cell Distribution Width 13.1 Platelet Count 856 H Mean Platelet Volume 8.6 Immature Granulocytes % 0.900 H Neutrophils % Segmented Neutrophils % (Manual) 68 Band Neutrophils % (Manual) 6 H Lymphocytes % Lymphocytes % (Manual) 20 Monocytes % Monocytes % (Manual) 4 Eosinophils % Eosinophils % (Manual) 4 Basophils % Nucleated Red Blood Cells % 0.0 Immature Granulocytes # 0.090 H Neutrophils # Neutrophils # (Manual) 6.5 Band Neutrophils # 0.5 Lymphocytes (Manual) 1.9 Lymphocytes # Monocytes # Monocytes # (Manual) 0.3 Eosinophils # Basophils # Nucleated Red Blood Cells # Pathologist Review (Hematology) YES Platelet Estimate INCREASED Giant Platelets 1 H Polychromasia 3+ Sodium Level 141 Potassium Level 4.3 Chloride Level 101 Carbon Dioxide Level 29 Anion Gap 11 Blood Urea Nitrogen 5 L Creatinine 0.42 L Est Glomerular Filtrat Rate mL/min > 60 Glucose Level 100 Calcium Level 9.2 Phosphorus Level 4.6 Magnesium Level 2.4 Total Bilirubin 0.1 L Direct Bilirubin 0.00 Indirect Bilirubin 0.1 Aspartate Amino Transf (AST/SGOT) 31 Alanine Aminotransferase (ALT/SGPT) 26 Alkaline Phosphatase 216 H Total Protein 7.8 Albumin 3.3 Globulin 4.50 H Albumin/Globulin Ratio 0.73 Medications Current Medications IV Flush (NS 3 ml) 3 ml PER PROTOCOL IV ; Start 10/04/18 at 16:30 Acetaminophen (Tylenol Tab) 650 mg Q6H PRN PO PAIN LEVEL 1-3 OR FEVER Last administered on 10/05/18at 20:38; Admin Dose 650 MG; Start 10/04/18 at 16:30 Piperacillin Sod/ Tazobactam Sod 100 ml @ 200 mls/hr Q6 IVPB Last administered on 10/10/18 05:56; Admin Dose 200 MLS/HR; Start 10/04/18 at 18:00 Docusate Sodium (Colace) 100 mg BID PO Last administered on 10/10/18 07:41; Admin Dose 100 MG; Start 10/04/18 at 21:00 Lorazepam (Ativan) 1 mg Q6H PRN IV Anxiety Last administered on 10/09/18at 20:23; Admin Dose 1 MG; Start 10/07/18 at 09:00 Hydromorphone HCl (Dilaudid) 1 mg Q4H PRN IV SEVERE PAIN LEVEL 7-10 Last administered on 10/10/18 10:39; Admin Dose 1 MG; Start 10/09/18 at 12:00 Ketorolac Tromethamine (Toradol) 15 mg Q6H PRN IV PAIN Last administered on 10/10/18 09:09; Admin Dose 15 MG; Start 10/10/18 at 09:00; Stop 10/13/18 at 08:59 Ondansetron HCl (Zofran Inj) 4 mg Q4H PRN IV NAUSEA AND/OR VOMITING; Start 10/10/18 at 11:00 Lactobacillus Acidophilus/ Rhamnosus (Culturelle) 1 cap BID PO ; Start 10/10/18 at 21:00 Acetaminophen/ Hydrocodone Bitart ([place] ()) 1 tab Q4H PRN PO MODERATE PAIN LEVEL 4-6; Start 10/10/18 at 11:00 ASHLEIGH CHOUDHURY Oct 10, 2018 11:10
--- NOTE | 2018-10-10 11:19 | PN ---
Date/Time of Note Date/Time of Note DATE: 10/10/18 TIME: 11:15 Assessment/Plan Lines/Catheters IV Catheter Type (from [facility]): Peripheral IV Cao in Place (from [facility]): No Assessment/Plan Chief Complaint/Hosp Course 1. Large left-sided retroperitoneal focal fluid collection with several foci of air adjacent to the left psoas muscle with fatty stranding: status post IR drain; repeat ct noted with persistent abscess -continue drain- flush drain to ensure patency -cont abx per sensitivity>per id -highly encourage cessation vaping and other illicit/recreational drugs 2. Sepsis: With significant leukocytosis: WBC normalized -As above -Antibiotics per ID -Fluids 3. illicit drug use -highly encourage cessation 4. Left flank and hip pain: much improved -Pain management 5. Normocytic normochromic anemia: -Monitor and transfuse as needed 6. Thrombocytosis: -consider heme consult if persistent -Trend 7. Elevated AST and alk phos: ast normalized, alk phos improving -Monitor 8. Hypoalbuminemia -Monitor -Treat infections 9. Anxiety: psych optimization 10. Bilateral adnexal mass: ovaries less prominent per ct -Gynecology consult 11. 2.4 cm hypodense pancreatic cystic mass in the body and tail junction Thank you. Patient seen and examined in collaboration with Dr. Damien Malhotra. Subjective 24 Hr Interval Summary Feels better. Pain improved. CT noted. No fevers, chills, sob, congested cough, cp, palpitations, topete, dizziness, n/v/d/dysuria. Exam/Review of Systems Vital Signs Vitals Vital Signs Date Temp Pulse Resp B/P (MAP) Pulse Ox O2 O2 Flow FiO2 Time Delivery Rate 10/10/18 98.2 81 20 114/66 96 Room Air 07:41 (82) Intake and Output 10/09/18 10/09/18 10/10/18 1515:00 23:00 07:00 IntakeIntake Total 340 ml 580 ml 1640 ml OutputOutput Total 20 ml 310 ml BalanceBalance 340 ml 560 ml 1330 ml Exam Free Text/Dictation Constitutional: alert, oriented Psych: no complaints, nl mood/affect Head: normocephalic, atraumatic Eyes: nl conjunctiva, EOMI, nl lids, nl sclera ENMT: nl external ears & nose, nl lips & teeth, mucosa pink and moist Neck: supple, non-tender; No jvd Respiratory: normal air movement; No congested cough, No labored breathing Cardiovascular: regular rate and rhythm, nl pulses Gastrointestinal: soft, non-tender Genitourinary - Female: nl external genitalia Musculoskeletal: nl extremities to inspection, nl gait and stance, other (Ten derness and edema left flank/back/inguinal/thigh-much improved); left lower quadrant pigtail drain to bulb suction (purulent drainage/ serous drainage noted in tube) Extremities: normal pulses, pitting pedal edema (1+) Neurological: nl speech Skin: No ecchymosis Results Result Diagram: 10/10/18 0533 10/10/18 0533 MARIYA CASTLE NP Oct 10, 2018 11:19
[2018-10-10] MEDS ORDERED: IOHEXOL 14.3 MG(I)/ML (ADULT) BTL PO ONE (12:00)
[2018-10-10] MEDS: HYDROmorphONE 1 MG/ML SYG IV PRN ×3 (14:09→23:26)
[2018-10-10 14:46] VITALS: BP 112/56; PULSE 86; RESP 16
[2018-10-10] MEDS: LORAZEPAM 2 MG INJ IV PRN (15:37)
[2018-10-10 20:11] VITALS: BP 101/55; PULSE 92; RESP 18
[2018-10-10] MEDS: LACTOBACILLUS RHAMNOSUS CAP PO SCH (20:49)
[2018-10-11] MEDS: LORAZEPAM 2 MG INJ IV PRN
[2018-10-11] MEDS: HYDROmorphONE 1 MG/ML SYG IV PRN ×7 (02:46→23:50)
[2018-10-11 02:47] VITALS: BP 118/64; PULSE 95; RESP 18
[2018-10-11] MEDS: PIPER-TAZO 3.375 GM IV (PMX) 100 ML IVPB SCH ×4 (05:42→23:53)
--- NOTE | 2018-10-11 06:45 | CONS ---
Date/Time of Note Date/Time of Note DATE: 10/11/18 TIME: 06:35 Assessment/Plan Assessment/Plan Hospital Course 1) likely infected hematoma (retroperitoneal with extension to psoas) continue with vanco/zosyn at present await cx results from today's aspiration 10/06 - strep species (possible enterococcus) in abscess cavity continue with zosyn, change vanco to zyvox in case VRE is present since pt is still spiking fevers to review CT with radiology urine cx is NGTD 10/07 - only alpha strep found which is a common vaginal balwinder d/c zyvox and continue with zosyn alone WBC and fevers are improved re-image when drainage is <30cc for 24 hours will order repeat cx from the drainage 10/10 - spoke to nurse regarding no repeat cx of drainage done yet GC/chlamydia were negative pt had only 30cc of drainage in last [address], [address] abd/pelv with extent down to mid thigh continue with zosyn fever has resolved and WBC is back to WNL 10/11 - repeat cx is pending in lab CT yesterday shows some improvement but still with large area of involvement, (to review CT with radiology later) pt has little drainage from the catheter even though it is in the proper position, likely due to the loculations consider fibrolytic installations (i.e alteplase) to see if flow would improve from drainage catheter I suspect that she will need surgical intervention for more complete I&D of her large complicated abscess, doubt antibiotics alone will be curative 2) adnexal masses unclear if these are benign or PID or nodules gc/clamydia RNA has been sent off RPR is pending, if not an STD then current antibiotics would be sufficient for PID await [employer] input 10/11 - improved on current CT Result Diagram: 10/11/18 0538 10/10/18 0533 Results 24hrs Laboratory Tests Test 10/11/18 05:38 White Blood Count 11.6 #H Red Blood Count 3.56 L Hemoglobin 10.2 L Hematocrit 32.1 L Mean Corpuscular Volume 90.2 Mean Corpuscular Hemoglobin 28.7 L Mean Corpuscular Hemoglobin Concent 31.8 L Red Cell Distribution Width 13.4 Platelet Count 909 H Mean Platelet Volume 8.2 Immature Granulocytes % 1.000 H Neutrophils % 75.0 Lymphocytes % 17.5 Monocytes % 4.8 Eosinophils % 1.4 Basophils % 0.3 Nucleated Red Blood Cells % 0.0 Immature Granulocytes # 0.120 H Neutrophils # 8.7 H Lymphocytes # 2.0 Monocytes # 0.6 Eosinophils # 0.2 Basophils # 0.0 Nucleated Red Blood Cells # 0.0 Prothrombin Time 13.3 Prothrombin Time Ratio 1.0 INR International Normalized Ratio 1.00 Activated Partial Thromboplast Time 30.0 Hemoglobin A1c 5.4 Consultation Date/Type/Reason Admit Date/Time Oct 04, 2018 at 14:05 Initial Consult Date 10/05/18 Type of Consult ID Requesting Provider: FAITH AGUAYO NP 24 HR Interval Summary Free Text/Dictation pt still has pain issues no N, V, D Exam/Review of Systems Vital Signs Vitals Vital Signs Date Temp Pulse Resp B/P (MAP) Pulse Ox O2 O2 Flow FiO2 Time Delivery Rate 10/11/18 98.7 95 18 118/64 95 02:47 (82) 10/10/18 Room Air 07:41 Intake and Output 10/10/18 10/10/18 10/11/18 1515:00 23:00 07:00 IntakeIntake Total 1060 ml 340 ml 100 ml OutputOutput Total 1200 ml 210 ml BalanceBalance -140 ml 130 ml 100 ml Medications Medications Current Medications IV Flush (NS 3 ml) 3 ml PER PROTOCOL IV ; Start 10/04/18 at 16:30 Acetaminophen (Tylenol Tab) 650 mg Q6H PRN PO PAIN LEVEL 1-3 OR FEVER Last administered on 10/05/18at 20:38; Admin Dose 650 MG; Start 10/04/18 at 16:30 Piperacillin Sod/ Tazobactam Sod 100 ml @ 200 mls/hr Q6 IVPB Last administered on 10/11/18at 05:42; Admin Dose 200 MLS/HR; Start 10/04/18 at 18:00 Docusate Sodium (Colace) 100 mg BID PO Last administered on 10/10/18at 07:41; Admin Dose 100 MG; Start 10/04/18 at 21:00 Lorazepam (Ativan) 1 mg Q6H PRN IV Anxiety Last administered on 10/11/18at 00:00; Admin Dose 1 MG; Start 10/07/18 at 09:00 Ketorolac Tromethamine (Toradol) 15 mg Q6H PRN IV PAIN Last administered on at 09:09; Admin Dose 15 MG; Start 10/10/18 at 09:00; Stop 10/13/18 at 08:59 Ondansetron HCl (Zofran Inj) 4 mg Q4H PRN IV NAUSEA AND/OR VOMITING; Start 10/10/18 at 11:00 Lactobacillus Acidophilus/ Rhamnosus (Culturelle) 1 cap BID PO ; Start 10/10/18 at 21:00 Acetaminophen/ Hydrocodone Bitart ([place] (10/325)) 1 tab Q4H PRN PO MODERATE PAIN LEVEL 4-6; Start 10/10/18 at 11:00 Hydromorphone HCl (Dilaudid) 1 mg Q3H PRN IV SEVERE PAIN LEVEL 7-10 Last administered on 10/11/18at 05:44; Admin Dose 1 MG; Start 10/10/18 at 14:00 DEREK DONATO MD Oct 11, 2018 06:45
[2018-10-11] MEDS ORDERED: BARIUM SULFATE 0.1% 450 ML BTL (VOLUMEN) PO ONE ×2 (07:20)
[2018-10-11 07:22] VITALS: BP 115/71; PULSE 79; RESP 20
[2018-10-11] MEDS: LACTOBACILLUS RHAMNOSUS CAP PO SCH ×2 (08:41→19:55)
[2018-10-11] MEDS: DOCUSATE SODIUM 100 MG CAP PO SCH ×2 (08:41→19:55)
--- NOTE | 2018-10-11 08:42 | CONS ---
Date/Time of Note Date/Time of Note DATE: 10/11/18 TIME: 08:40 Assessment/Plan Assessment/Plan Assessment/Plan Postdated note for visit 10/10/2018 She is comfortable on Dilaudid 1 mg p.o. every 4 hours as needed, denies nausea vomiting constipation pruritus mental cloudiness sweating fatigue drowsiness. We will continue with current dosing, supportive care given and encouragement that she will improve with less discomfort. Result Diagram: 10/11/18 0538 10/11/18 0538 Results 24hrs Laboratory Tests Test 10/11/18 05:38 White Blood Count 11.6 #H Red Blood Count 3.56 L Hemoglobin 10.2 L Hematocrit 32.1 L Mean Corpuscular Volume 90.2 Mean Corpuscular Hemoglobin 28.7 L Mean Corpuscular Hemoglobin Concent 31.8 L Red Cell Distribution Width 13.4 Platelet Count 909 H Mean Platelet Volume 8.2 Immature Granulocytes % 1.000 H Neutrophils % 75.0 Lymphocytes % 17.5 Monocytes % 4.8 Eosinophils % 1.4 Basophils % 0.3 Nucleated Red Blood Cells % 0.0 Immature Granulocytes # 0.120 H Neutrophils # 8.7 H Lymphocytes # 2.0 Monocytes # 0.6 Eosinophils # 0.2 Basophils # 0.0 Nucleated Red Blood Cells # 0.0 Prothrombin Time 13.3 Prothrombin Time Ratio 1.0 INR International Normalized Ratio 1.00 Activated Partial Thromboplast Time 30.0 Sodium Level 142 Potassium Level 4.5 Chloride Level 100 Carbon Dioxide Level 30 Anion Gap 12 Blood Urea Nitrogen 6 L Creatinine 0.57 Est Glomerular Filtrat Rate mL/min > 60 Glucose Level 99 Hemoglobin A1c 5.4 Calcium Level 9.5 Total Bilirubin 0.1 L Direct Bilirubin 0.00 Indirect Bilirubin 0.1 Aspartate Amino Transf (AST/SGOT) 37 Alanine Aminotransferase (ALT/SGPT) 27 Alkaline Phosphatase 233 H Creatine Kinase 20 L Total Protein 8.4 H Albumin 3.7 Globulin 4.70 H Albumin/Globulin Ratio 0.78 Thyroid Stimulating Hormone (TSH) 1.940 Consultation Date/Type/Reason Admit Date/Time Oct 04, 2018 at 14:05 Hx of Present Illness 33-year-old female status post fall 2017. Patient was seen in an outside emergency room and in eventually presented to [facility] with continued abdominal pain bilateral flank discomfort found to be tachycardic significant leukocytosis has been admitted Reviewed patient's medical record she is in radiology at this time having a study done. There are 2 friends in the room when patient returns evaluate. Large left-sided retroperitoneal fluid collection abscess 11.3 x 6.0 x 4.3 cm Left, left psoas muscle abscess and hematoma Bilateral adnexal masses Anemia probably secondary to the above Transaminitis probably secondary to the above Past Medical History Medical History: no pertinent history Medications Current Medications IV Flush (NS 3 ml) 3 ml PER PROTOCOL IV ; Start 10/04/18 at 16:30 Acetaminophen (Tylenol Tab) 650 mg Q6H PRN PO PAIN LEVEL 1-3 OR FEVER Last administered on 10/05/18at 20:38; Admin Dose 650 MG; Start 10/04/18 at 16:30 Piperacillin Sod/ Tazobactam Sod 100 ml @ 200 mls/hr Q6 IVPB Last administered on 10/11/18at 05:42; Admin Dose 200 MLS/HR; Start 10/04/18 at 18:00 Docusate Sodium (Colace) 100 mg BID PO Last administered on 10/10/18at 07:41; Admin Dose 100 MG; Start 10/04/18 at 21:00 Lorazepam (Ativan) 1 mg Q6H PRN IV Anxiety Last administered on 10/11/18at 00:00; Admin Dose 1 MG; Start 10/07/18 at 09:00 Ketorolac Tromethamine (Toradol) 15 mg Q6H PRN IV PAIN Last administered on 10/10/18at 09:09; Admin Dose 15 MG; Start 10/10/18 at 09:00; Stop 10/13/18 at 08:59 Ondansetron HCl (Zofran Inj) 4 mg Q4H PRN IV NAUSEA AND/OR VOMITING; Start 10/10/18 at 11:00 Lactobacillus Acidophilus/ Rhamnosus (Culturelle) 1 cap BID PO ; Start 10/10/18 at 21:00 Acetaminophen/ Hydrocodone Bitart ([place] (10/325)) 1 tab Q4H PRN PO MODERATE PAIN LEVEL 4-6; Start 10/10/18 at 11:00 Hydromorphone HCl (Dilaudid) 1 mg Q3H PRN IV SEVERE PAIN LEVEL 7-10 Last administered on 10/11/18at 08:32; Admin Dose 1 MG; Start 10/10/18 at 14:00 Allergies: Coded Allergies: No Known Allergy (Unverified , 10/04/18) Past Surgical History Past Surgical Hx: no surgical history Social History Alcohol Use: none Smoking Status: Never smoker Drug Use: none Exam/Review of Systems Vital Signs Vitals Vital Signs Date Temp Pulse Resp B/P (MAP) Pulse Ox O2 O2 Flow FiO2 Time Delivery Rate 10/11/18 98.6 79 20 115/71 98 Room Air 07:22 (86) Intake and Output 10/10/18 10/10/18 10/11/18 1515:00 23:00 07:00 IntakeIntake Total 1060 ml 340 ml 200 ml OutputOutput Total 1200 ml 210 ml 0 ml BalanceBalance -140 ml 130 ml 200 ml Exam Constitutional: alert, oriented, well developed Psych: anxiety Neurological: MOLD CARRIER II-XII intact, nl mental status, nl speech, nl strength; No confused, No DTR's symmetric, No focal weakness, No lethargic, No numbness, No reflexes, No unresponsive, No other Medications Medications Current Medications IV Flush (NS 3 ml) 3 ml PER PROTOCOL IV ; Start 10/04/18 at 16:30 Acetaminophen (Tylenol Tab) 650 mg Q6H PRN PO PAIN LEVEL 1-3 OR FEVER Last administered on 10/05/18at 20:38; Admin Dose 650 MG; Start 10/04/18 at 16:30 Piperacillin Sod/ Tazobactam Sod 100 ml @ 200 mls/hr Q6 IVPB Last administered on 10/11/18at 05:42; Admin Dose 200 MLS/HR; Start 10/04/18 at 18:00 Docusate Sodium (Colace) 100 mg BID PO Last administered on 10/10/18at 07:41; Admin Dose 100 MG; Start 10/04/18 at 21:00 Lorazepam (Ativan) 1 mg Q6H PRN IV Anxiety Last administered on 10/11/18at 00:00; Admin Dose 1 MG; Start 10/07/18 at 09:00 Ketorolac Tromethamine (Toradol) 15 mg Q6H PRN IV PAIN Last administered on 10/10/18at 09:09; Admin Dose 15 MG; Start 10/10/18 at 09:00; Stop 10/13/18 at 08:59 Ondansetron HCl (Zofran Inj) 4 mg Q4H PRN IV NAUSEA AND/OR VOMITING; Start 10/10/18 at 11:00 Lactobacillus Acidophilus/ Rhamnosus (Culturelle) 1 cap BID PO ; Start 10/10/18 at 21:00 Acetaminophen/ Hydrocodone Bitart ([place] (10/325)) 1 tab Q4H PRN PO MODERATE PAIN LEVEL 4-6; Start 10/10/18 at 11:00 Hydromorphone HCl (Dilaudid) 1 mg Q3H PRN IV SEVERE PAIN LEVEL 7-10 Last administered on 10/11/18at 08:32; Admin Dose 1 MG; Start 10/10/18 at 14:00 ASHLEIGH CHOUDHURY Oct 11, 2018 08:42
[2018-10-11] MEDS ORDERED: IOHEXOL 100 ML ONE (09:06)
[2018-10-11] MEDS ORDERED: SOD CHLORIDE 0.9% 100 ML ONE (09:06)
[2018-10-11] MEDS: HYDROCODONE/APAP (10/325) TAB PO PRN ×3 (10:15→19:55)
--- NOTE | 2018-10-11 12:05 | PN ---
Date/Time of Note Date/Time of Note DATE: 10/11/18 TIME: 12:01 Assessment/Plan VTE Prophylaxis Risk score (from Ns)>0 risk: 1 SCD applied (from Ns): No SCD contraindicated: low risk/ambulating Pharmacological prophylaxis: NA/contraindicated Pharm contraindication: low risk/ambulating Lines/Catheters IV Catheter Type (from [facility]): Saline Lock Urinary Cath still in place: No Assessment/Plan Assessment/Plan 33-year-old female who denies any significant past medical history who is status post ground-level fall on 09/18/2018 and has been evaluated at multiple emergency rooms and an outpatient orthopedic surgeon for a left iliacus muscle a bscess who presented to the emergency room on 10/04/2018 because of fevers, chills, and significant left hip/lower extremity pain with evidence of sepsis with leukocytosis, tachycardia, and febrile illness, who was admitted to inpatient setting for further treatment and evaluation. 1. Sepsis with leukocytosis, tachycardia, and febrile illness present on admission, most probably secondary to underlying intramuscular abscess, intra- abdominal abscess/fluid collection. -Continue antimicrobials as per ID. 2. Large left-sided retroperitoneal fluid collection/abscess with several foci of air measuring 11.3 x 6.0 x 4.3 cm. -Etiology unclear. -Continue antimicrobials as per ID. -S/P IR guided drainage on 10/05/2018 with the fluid growing alpha hemolytic streptococci. 3. Left iliacus, left psoas muscle abscess/hematoma. -Continue pain control. -s/p IR-guided drainage. 4. Bilateral adnexal masses -On repeat CT these having diminished in size. May have been PID. -Pelvic ultrasound showed 3.4 cm heterogeneously hypoechoic nodules in the bilateral adnexa. -RPR negative. HIV negative. Chlamydia and gonorrhea negative. 5. Normocytic anemia. - Will send iron panel. - Currently rising. 6. Transaminitis. -Most probably secondary to underlying sepsis - Resolved. 7. Fluids, electrolytes, and nutrition. -Regular diet. 8. DVT prophylaxis. -None, patient ambulatory 9. Plan. -Continue antimicrobials as per ID. -Patient still requiring IV opioids. Pain management consult to wean her on oral analgesics. Result Diagram: 10/11/18 0538 10/11/18 0538 Results 24hrs Laboratory Tests Test 1/15/19 05:38 10/11/18 09:11 White Blood Count 11.6 #H Red Blood Count 3.56 L Hemoglobin 10.2 L Hematocrit 32.1 L Mean Corpuscular Volume 90.2 Mean Corpuscular Hemoglobin 28.7 L Mean Corpuscular Hemoglobin Concent 31.8 L Red Cell Distribution Width 13.4 Platelet Count 909 H Mean Platelet Volume 8.2 Immature Granulocytes % 1.000 H Neutrophils % 75.0 Lymphocytes % 17.5 Monocytes % 4.8 Eosinophils % 1.4 Basophils % 0.3 Nucleated Red Blood Cells % 0.0 Immature Granulocytes # 0.120 H Neutrophils # 8.7 H Lymphocytes # 2.0 Monocytes # 0.6 Eosinophils # 0.2 Basophils # 0.0 Nucleated Red Blood Cells # 0.0 Prothrombin Time 13.3 Prothrombin Time Ratio 1.0 INR International Normalized Ratio 1.00 Activated Partial Thromboplast Time 30.0 Sodium Level 142 Potassium Level 4.5 Chloride Level 100 Carbon Dioxide Level 30 Anion Gap 12 Blood Urea Nitrogen 6 L Creatinine 0.57 Est Glomerular Filtrat Rate mL/min > 60 Glucose Level 99 Hemoglobin A1c 5.4 Calcium Level 9.5 Total Bilirubin 0.1 L Direct Bilirubin 0.00 Indirect Bilirubin 0.1 Aspartate Amino Transf (AST/SGOT) 37 Alanine Aminotransferase (ALT/SGPT) 27 Alkaline Phosphatase 233 H Creatine Kinase 20 L Total Protein 8.4 H Albumin 3.7 Globulin 4.70 H Albumin/Globulin Ratio 0.78 Thyroid Stimulating Hormone (TSH) 1.940 Lab Scanned Report REFERENCE LAB Subjective 24 Hr Interval Summary Free Text/Dictation No acute overnight events. Drainage from abdominal catheter significantly improved. Only scant serous drainage now. Patient still requiring IV dilaudid. Exam/Review of Systems Vital Signs Vitals Vital Signs Date Temp Pulse Resp B/P (MAP) Pulse Ox O2 O2 Flow FiO2 Time Delivery Rate 10/11/18 98.6 79 20 115/71 98 Room Air 07:22 (86) Intake and Output 10/10/18 10/10/18 10/11/18 1515:00 23:00 07:00 IntakeIntake Total 1060 ml 340 ml 200 ml OutputOutput Total 1200 ml 210 ml 0 ml BalanceBalance -140 ml 130 ml 200 ml Exam General: Adequately build 33 year-old female lying in bed in no apparent distress. HEENT: Normocephalic, atraumatic. Eyes: Anicteric sclerae, conjunctivae clear. ENT: Nasal septum midline, oral mucosa is dry. Neck supple. Respiratory: Bilaterally clear breath sounds. No use of accessory muscles of respiration. No adventitious breath sounds. Cardiovascular: S1, S2 heard. No murmurs or gallops. Abdomen: Soft. LLQ tenderness to palpation. Left lower quadrant drain in place draining yellowish serous fluid. Back: No bruises. No tenderness along the lumbar spine. Extremities: No cyanosis, no clubbing, no edema. Peripheral pulses palpable. Neurologic: The patient is awake, alert, and oriented. Medications Medications Current Medications IV Flush (NS 3 ml) 3 ml PER PROTOCOL IV ; Start 10/04/18 at 16:30 Acetaminophen (Tylenol Tab) 650 mg Q6H PRN PO PAIN LEVEL 1-3 OR FEVER Last administered on 10/05/18at 20:38; Admin Dose 650 MG; Start 10/04/18 at 16:30 Piperacillin Sod/ Tazobactam Sod 100 ml @ 200 mls/hr Q6 IVPB Last administered on 10/11/18 11:27; Admin Dose 200 MLS/HR; Start 10/04/18 at 18:00 Docusate Sodium (Colace) 100 mg BID PO Last administered on 10/11/18 08:41; Admin Dose 100 MG; Start 10/04/18 at 21:00 Lorazepam (Ativan) 1 mg Q6H PRN IV Anxiety Last administered on 10/11/18at 00:00; Admin Dose 1 MG; Start 10/07/18 at 09:00 Ketorolac Tromethamine (Toradol) 15 mg Q6H PRN IV PAIN Last administered on 10/10/18at 09:09; Admin Dose 15 MG; Start 10/10/18 at 09:00; Stop 10/13/18 at 08:59 Ondansetron HCl (Zofran Inj) 4 mg Q4H PRN IV NAUSEA AND/OR VOMITING; Start 10/10/18 at 11:00 Lactobacillus Acidophilus/ Rhamnosus (Culturelle) 1 cap BID PO Last administered on 10/11/18 08:41; Admin Dose 1 CAP; Start 10/10/18 at 21:00 Acetaminophen/ Hydrocodone Bitart ([place] (10/325)) 1 tab Q4H PRN PO MODERATE PAIN LEVEL 4-6 Last administered on 10/11/18at 10:15; Admin Dose 1 TAB; Start 10/10/18 at 11:00 Hydromorphone HCl (Dilaudid) 1 mg Q3H PRN IV SEVERE PAIN LEVEL 7-10 Last a dministered on 10/11/18at 11:25; Admin Dose 1 MG; Start 10/10/18 at 14:00 COLLINS HUDDLESTON MD Oct 11, 2018 12:05
[2018-10-11 14:45] VITALS: BP 110/66; PULSE 83; RESP 20
[2018-10-11] MEDS: ALTEPLASE 4 MG in SOD CHLORIDE 0.9% 20 ML CATHETER SCH ×2 (17:05→23:00)
[2018-10-11 19:36] VITALS: BP 119/64; PULSE 86; RESP 18
--- NOTE | 2018-10-11 23:03 | PN ---
Date/Time of Note Date/Time of Note DATE: 10/11/18 TIME: 22:54 Assessment/Plan Lines/Catheters IV Catheter Type (from [facility]): Saline Lock Cao in Place (from Nrs): No Assessment/Plan Chief Complaint/Hosp Course 1. Large left-sided retroperitoneal focal fluid collection with several foci of air adjacent to the left psoas muscle with fatty stranding: status post IR drain; repeat ct noted with persistent abscess still in iliopsoas muscle and retroperitoneal -continue drain- flush drain to ensure patency, will add tpa to be instilled in abscess through cath since low output but persistent abscess -Will need ortho consult since abscess continues to iliopsoas mucle -cont abx per sensitivity>per id -highly encourage cessation vaping and other illicit/recreational drugs 2. 2.4 cm hypodense pancreatic cystic mass in the body and tail junction; CT w panc protocol:Indeterminate, poorly defined hypoenhancing area is again seen in the pancreatic body/tail, possible neoplasm -will need hepatobiliary sx consult 3. illicit drug use -highly encourage cessation 4. Left flank and hip pain: much improved -Pain management 5. Normocytic normochromic anemia: -Monitor and transfuse as needed 6. Thrombocytosis: -consider heme consult if persistent -Trend 7. Elevated AST and alk phos: ast normalized, alk phos improving -Monitor 8. Hypoalbuminemia -Monitor -Treat infections 9. Anxiety: psych optimization 10. Bilateral adnexal mass: ovaries less prominent per ct -Gynecology consult Thank you. Patient seen and examined in collaboration with Dr. Damien Malhtora. Subjective 24 Hr Interval Summary Feels minimally better. Minimal out put from drain. No fevers, chills, sob, congested cough, cp, palpitations, topete, dizziness, n/v/d/dysuria. Exam/Review of Systems Vital Signs Vitals Vital Signs Date Temp Pulse Resp B/P (MAP) Pulse Ox O2 O2 Flow FiO2 Time Delivery Rate 10/11/18 98.6 86 18 119/64 95 19:36 (82) 10/11/18 Room Air 14:45 Intake and Output 10/10/18 10/10/18 10/11/18 1515:00 23:00 07:00 IntakeIntake Total 1060 ml 340 ml 200 ml OutputOutput Total 1200 ml 210 ml 0 ml BalanceBalance -140 ml 130 ml 200 ml Exam Free Text/Dictation Constitutional: alert, oriented Psych: no complaints, nl mood/affect Head: normocephalic, atraumatic Eyes: nl conjunctiva, EOMI, nl lids, nl sclera ENMT: nl external ears & nose, nl lips & teeth, mucosa pink and moist Neck: supple, non-tender; No jvd Respiratory: normal air movement; No congested cough, No labored breathing Cardiovascular: regular rate and rhythm, nl pulses Gastrointestinal: soft, non-tender Genitourinary - Female: nl external genitalia Musculoskeletal: nl extremities to inspection, nl gait and stance, other (Tenderness and edema left flank/back/inguinal/thigh-much improved); left lower quadrant pigtail drain to bulb suction (purulent drainage (min)/ serous drainage noted in tube) Extremities: normal pulses, pitting pedal edema (1+) Neurological: nl speech Skin: No ecchymosis Results Result Diagram: 10/11/18 0538 10/11/18 0538 MARIYA CASTLE NP Oct 11, 2018 23:03
[2018-10-12] MEDS: HYDROCODONE/APAP (10/325) TAB PO PRN ×3 (00:59→20:40)
[2018-10-12 01:32] VITALS: BP 115/58; PULSE 69; RESP 18
[2018-10-12] MEDS: KETOROLAC 15 MG INJ IV PRN ×4 (01:35→23:30)
[2018-10-12] MEDS: ALTEPLASE 4 MG in SOD CHLORIDE 0.9% 20 ML CATHETER SCH ×3 (01:39→23:29)
[2018-10-12] MEDS: HYDROmorphONE 1 MG/ML SYG IV PRN ×3 (05:45→18:59)
[2018-10-12] MEDS: PIPER-TAZO 3.375 GM IV (PMX) 100 ML IVPB SCH ×4 (05:46→23:29)
[2018-10-12 07:42] VITALS: BP 114/62; PULSE 72; RESP 16
--- NOTE | 2018-10-12 07:49 | CONS ---
Date/Time of Note Date/Time of Note DATE: 10/12/18 TIME: 07:42 Assessment/Plan Assessment/Plan Hospital Course 1) likely infected hematoma (retroperitoneal with extension to psoas) continue with vanco/zosyn at present await cx results from today's aspiration 10/06 - strep species (possible enterococcus) in abscess cavity continue with zosyn, change vanco to zyvox in case VRE is present since pt is still spiking fevers to review CT with radiology urine cx is NGTD 10/07 - only alpha strep found which is a common vaginal balwinder d/c zyvox and continue with zosyn alone WBC and fevers are improved re-image when drainage is <30cc for 24 hours will order repeat cx from the drainage 10/10 - spoke to nurse regarding no repeat cx of drainage done yet GC/chlamydia were negative pt had only 30cc of drainage in last [address], [address] abd/pelv with extent down to mid thigh continue with zosyn fever has resolved and WBC is back to WNL 10/11 - repeat cx is pending in lab CT yesterday shows some improvement but still with large area of involvement, (to review CT with radiology later) pt has little drainage from the catheter even though it is in the proper position, likely due to the loculations consider fibrolytic installations (i.e alteplase) to see if flow would improve from drainage catheter I suspect that she will need surgical intervention for more complete I&D of her large complicated abscess, doubt antibiotics alone will be curative 10/12 - reviewed CT with radiology from 10/10 the intramuscular abscess in the adductor pelvic muscle remains about the same and appears to be encapsulated, the fluid/abscess tracking down the iliopsoas muscle is not decreasing the abscess around the iliacus and anterior to is is somewhat smaller repeat wound cx is some growth but ID is pending alteplase in being used but it has not increased the outflow from the drain, in fact it is worse in last 24 hours I doubt current drain in place with resolve the intramuscular abscess and is vidhya motley to need surgical drainage I will discuss with Dr. Malhotra later today about this 2) adnexal masses unclear if these are benign or PID or nodules gc/clamydia RNA has been sent off RPR is pending, if not an STD then current antibiotics would be sufficient for PID await [employer] input 10/11 - improved on current CT Result Diagram: 10/12/18 0431 10/12/18 0431 Results 24hrs Laboratory Tests Test 10/11/18 09:11 10/12/18 04:31 Lab Scanned Report REFERENCE LAB White Blood Count 11.7 H Red Blood Count 3.26 L Hemoglobin 9.4 L Hematocrit 29.4 L Mean Corpuscular Volume 90.2 Mean Corpuscular Hemoglobin 28.8 L Mean Corpuscular Hemoglobin Concent 32.0 Red Cell Distribution Width 13.4 Platelet Count 870 H Mean Platelet Volume 8.2 Immature Granulocytes % 0.900 H Neutrophils % 73.8 Lymphocytes % 17.4 Monocytes % 6.2 Eosinophils % 1.4 Basophils % 0.3 Nucleated Red Blood Cells % 0.0 Immature Granulocytes # 0.110 H Neutrophils # 8.7 H Lymphocytes # 2.0 Monocytes # 0.7 Eosinophils # 0.2 Basophils # 0.0 Nucleated Red Blood Cells # 0.0 Sodium Level 142 Potassium Level 4.2 Chloride Level 101 Carbon Dioxide Level 30 Anion Gap 11 Blood Urea Nitrogen 8 Creatinine 0.58 Est Glomerular Filtrat Rate mL/min > 60 Glucose Level 106 Calcium Level 9.2 Phosphorus Level 5.7 H Magnesium Level 2.2 Iron Level 36 Total Iron Binding Capacity 319 Percent Iron Saturation 11 L Ferritin 163.0 H Consultation Date/Type/Reason Admit Date/Time Oct 04, 2018 at 14:05 Initial Consult Date 10/05/18 Type of Consult ID Requesting Provider: FAITH AGUAYO NP 24 HR Interval Summary Free Text/Dictation spoke to nurse pt remains in pain and is using the bed pain refusing PT last 2 days also no N, V, D eating ok Exam/Review of Systems Vital Signs Vitals Vital Signs Date Temp Pulse Resp B/P (MAP) Pulse Ox O2 O2 Flow FiO2 Time Delivery Rate 10/12/18 98.9 69 18 115/58 93 01:32 (77) 10/11/18 Room Air 14:45 Intake and Output 10/11/18 10/11/18 10/12/18 1414:59 22:59 06:59 IntakeIntake Total 340 ml 360 ml 220 ml OutputOutput Total 5 ml BalanceBalance 340 ml 360 ml 215 ml Medications Medications Current Medications IV Flush (NS 3 ml) 3 ml PER PROTOCOL IV ; Start 10/04/18 at 16:30 Acetaminophen (Tylenol Tab) 650 mg Q6H PRN PO PAIN LEVEL 1-3 OR FEVER Last administered on 10/05/18 20:38; Admin Dose 650 MG; Start 10/04/18 at 16:30 Piperacillin Sod/ Tazobactam Sod 100 ml @ 200 mls/hr Q6 IVPB Last administered on 10/12/18 05:46; Admin Dose 200 MLS/HR; Start 10/04/18 at 18:00 Docusate Sodium (Colace) 100 mg BID PO Last administered on 10/11/18 19:55; Admin Dose 100 MG; Start 10/04/18 at 21:00 Lorazepam (Ativan) 1 mg Q6H PRN IV Anxiety Last administered on 10/11/18at 00:00; Admin Dose 1 MG; Start 10/07/18 at 09:00 Ketorolac Tromethamine (Toradol) 15 mg Q6H PRN IV PAIN Last administered on 10/12/18 01:35; Admin Dose 15 MG; Start 10/10/18 at 09:00; Stop 10/13/18 at 08:59 Ondansetron HCl (Zofran Inj) 4 mg Q4H PRN IV NAUSEA AND/OR VOMITING; Start 10/10/18 at 11:00 Lactobacillus Acidophilus/ Rhamnosus (Culturelle) 1 cap BID PO Last administered on 10/11/18at 19:55; Admin Dose 1 CAP; Start 10/10/18 at 21:00 Acetaminophen/ Hydrocodone Bitart ([place] (10/325)) 1 tab Q4H PRN PO MODERATE PAIN LEVEL 4-6 Last administered on 10/12/18 00:59; Admin Dose 1 TAB; Start 10/10/18 at 11:00 Alteplase, Recombinant 4 mg/ Sodium Chloride 20 ml @ 20 mls/hr Q12 CATHETER Last administered on 10/12/18 01:39; Admin Dose 20 MLS/HR; Start 10/11/18 at 15:00; Stop 10/12/18 at 21:59 Hydromorphone HCl (Dilaudid) 1 mg Q6H PRN IV SEVERE PAIN LEVEL 7-10 Last administered on 10/12/18at 05:45; Admin Dose 1 MG; Start 10/11/18 at 15:30 DEREK DONATO MD Oct 12, 2018 07:49
[2018-10-12] MEDS ORDERED: HYDROmorphONE 1 MG/ML SYG IV SCH (08:42)
[2018-10-12] MEDS: DOCUSATE SODIUM 100 MG CAP PO SCH ×2 (10:18→21:00)
[2018-10-12] MEDS: LACTOBACILLUS RHAMNOSUS CAP PO SCH ×2 (10:18→20:40)
--- NOTE | 2018-10-12 12:14 | PN ---
Date/Time of Note Date/Time of Note DATE: 10/12/18 TIME: 12:10 Assessment/Plan Lines/Catheters IV Catheter Type (from Nrs): Saline Lock Cao in Place (from Nrs): No Assessment/Plan Chief Complaint/Hosp Course 1. Large left-sided retroperitoneal focal fluid collection with several foci of air adjacent to the left psoas muscle with fatty stranding: status post IR drain; repeat ct noted with persistent abscess still in iliopsoas muscle and retroperitoneal -continue drain- flush drain to ensure patency, will add tpa bid to be instilled in abscess through cath since low output but persistent abscess (continue tpa for now) -Will need ortho consult since abscess continues to iliopsoas mucle -cont abx per sensitivity>per id -highly encourage cessation vaping and other illicit/recreational drugs 2. 2.4 cm hypodense pancreatic cystic mass in the body and tail junction; CT w panc protocol:Indeterminate, poorly defined hypoenhancing area is again seen in the pancreatic body/tail, possible neoplasm -will need hepatobiliary sx consult 3. illicit drug use -highly encourage cessation 4. Left flank and hip pain: improved -Pain management> per pain management 5. Normocytic normochromic anemia: -Monitor and transfuse as needed 6. Thrombocytosis: -consider heme consult if persistent -Trend 7. Elevated AST and alk phos: ast normalized, alk phos improving -Monitor 8. Hypoalbuminemia -Monitor -Treat infections 9. Anxiety: psych optimization 10. Bilateral adnexal mass: ovaries less prominent per ct -Gynecology consult Thank you. Patient seen and examined in collaboration with Dr. Damien Malhotra. Subjective 24 Hr Interval Summary Some leg/pelvic pain. Min drainage from cath. No fevers, chills, sob, congested cough, cp, palpitations, topete, dizziness, n/v/d/dysuria. Exam/Review of Systems Vital Signs Vitals Vital Signs Date Temp Pulse Resp B/P (MAP) Pulse Ox O2 O2 Flow FiO2 Time Delivery Rate 10/12/18 98.4 72 16 114/62 98 07:42 (79) 10/11/18 Room Air 14:45 Intake and Output 10/11/18 10/11/18 10/12/18 1515:00 23:00 07:00 IntakeIntake Total 340 ml 360 ml 220 ml OutputOutput Total 5 ml BalanceBalance 340 ml 360 ml 215 ml Exam Free Text/Dictation Constitutional: alert, oriented Psych: no complaints, nl mood/affect Head: normocephalic, atraumatic Eyes: nl conjunctiva, EOMI, nl lids, nl sclera ENMT: nl external ears & nose, nl lips & teeth, mucosa pink and moist Neck: supple, non-tender; No jvd Respiratory: normal air movement; No congested cough, No labored breathing Cardiovascular: regular rate and rhythm, nl pulses Gastrointestinal: soft, non-tender Genitourinary - Female: nl external genitalia Musculoskeletal: nl extremities to inspection, nl gait and stance, other (Tenderness; edema left flank/back/inguinal/thigh-much improved); left lower quadrant pigtail drain to bulb suction (purulent drainage (min) Extremities: normal pulses, pitting pedal edema (1+) Neurological: nl speech Skin: No ecchymosis Results Result Diagram: 10/12/18 0431 10/12/18 0431 MARIYA CASTLE NP Oct 12, 2018 12:14
--- NOTE | 2018-10-12 13:41 | PN ---
Date/Time of Note Date/Time of Note DATE: 10/12/18 TIME: 13:38 Assessment/Plan VTE Prophylaxis Risk score (from Ns)>0 risk: 1 SCD applied (from Ns): Yes Pharmacological prophylaxis: heparin Lines/Catheters IV Catheter Type (from Nrsg): Saline Lock Urinary Cath still in place: No Assessment/Plan Hospital Course 33 yo female with iliopsoas abscess - Seems to not be improving sp IR drainage. Patient crying in pain - I spoke to AMANDEEP Burgess from general surgery who recommended orthopedics drain it. I then spoke to Dr Nunes from orthopedics who says this is a general surgery issue and out of his scope of practice. I then asked general surgery to discuss this with orthopedics - Pain control per Dr Damon Result Diagram: 10/12/18 0431 10/12/18 0431 Results 24hrs Laboratory Tests Test 10/12/18 04:31 White Blood Count 11.7 H Red Blood Count 3.26 L Hemoglobin 9.4 L Hematocrit 29.4 L Mean Corpuscular Volume 90.2 Mean Corpuscular Hemoglobin 28.8 L Mean Corpuscular Hemoglobin Concent 32.0 Red Cell Distribution Width 13.4 Platelet Count 870 H Mean Platelet Volume 8.2 Immature Granulocytes % 0.900 H Neutrophils % 73.8 Lymphocytes % 17.4 Monocytes % 6.2 Eosinophils % 1.4 Basophils % 0.3 Nucleated Red Blood Cells % 0.0 Immature Granulocytes # 0.110 H Neutrophils # 8.7 H Lymphocytes # 2.0 Monocytes # 0.7 Eosinophils # 0.2 Basophils # 0.0 Nucleated Red Blood Cells # 0.0 Sodium Level 142 Potassium Level 4.2 Chloride Level 101 Carbon Dioxide Level 30 Anion Gap 11 Blood Urea Nitrogen 8 Creatinine 0.58 Est Glomerular Filtrat Rate mL/min > 60 Glucose Level 106 Calcium Level 9.2 Phosphorus Level 5.7 H Magnesium Level 2.2 Iron Level 36 Total Iron Binding Capacity 319 Percent Iron Saturation 11 L Ferritin 163.0 H Subjective 24 Hr Interval Summary Free Text/Dictation Remains in excruciating pain. Abscess not improving on imaging Exam/Review of Systems Vital Signs Vitals Vital Signs Date Temp Pulse Resp B/P (MAP) Pulse Ox O2 O2 Flow FiO2 Time Delivery Rate 10/12/18 98.4 72 16 114/62 98 07:42 (79) 10/11/18 Room Air 14:45 Intake and Output 10/11/18 10/11/18 10/12/18 1515:00 23:00 07:00 IntakeIntake Total 340 ml 360 ml 220 ml OutputOutput Total 5 ml BalanceBalance 340 ml 360 ml 215 ml Medications Medications Current Medications IV Flush (NS 3 ml) 3 ml PER PROTOCOL IV ; Start 10/04/18 at 16:30 Acetaminophen (Tylenol Tab) 650 mg Q6H PRN PO PAIN LEVEL 1-3 OR FEVER Last administered on 10/05/18 20:38; Admin Dose 650 MG; Start 10/04/18 at 16:30 Piperacillin Sod/ Tazobactam Sod 100 ml @ 200 mls/hr Q6 IVPB Last administered on 10/12/18 13:00; Admin Dose 200 MLS/HR; Start 10/04/18 at 18:00 Docusate Sodium (Colace) 100 mg BID PO Last administered on 10/12/18 10:18; Admin Dose 100 MG; Start 10/04/18 at 21:00 Lorazepam (Ativan) 1 mg Q6H PRN IV Anxiety Last administered on 10/11/18 00:00; Admin Dose 1 MG; Start 10/07/18 at 09:00 Ketorolac Tromethamine (Toradol) 15 mg Q6H PRN IV PAIN Last administered on 10/12/18 07:50; Admin Dose 15 MG; Start 10/10/18 at 09:00; Stop 10/13/18 at 08:59 Ondansetron HCl (Zofran Inj) 4 mg Q4H PRN IV NAUSEA AND/OR VOMITING; Start 10/10/18 at 11:00 Lactobacillus Acidophilus/ Rhamnosus (Culturelle) 1 cap BID PO Last admi nistered on 10/12/18 10:18; Admin Dose 1 CAP; Start 10/10/18 at 21:00 Acetaminophen/ Hydrocodone Bitart ([place] (10325)) 1 tab Q4H PRN PO MODERATE PAIN LEVEL 4-6 Last administered on 10/12/18 10:59; Admin Dose 1 TAB; Start 10/10/18 at 11:00 Alteplase, Recombinant 4 mg/ Sodium Chloride 20 ml @ 20 mls/hr Q12 CATHETER Last administered on 10/12/18 10:18; Admin Dose 20 MLS/HR; Start 10/11/18 at 1 5:00; Stop 10/12/18 at 21:59 Hydromorphone HCl (Dilaudid) 1 mg Q6H PRN IV SEVERE PAIN LEVEL 7-10 Last administered on 10/12/18at 13:00; Admin Dose 1 MG; Start 10/11/18 at 15:30 VEL TOLENTINO MD Oct 12, 2018 13:41
[2018-10-12 14:03] VITALS: BP 104/58; PULSE 81; RESP 16
[2018-10-12 19:46] VITALS: BP 111/53; PULSE 90; RESP 18
[2018-10-13 01:12] VITALS: BP 108/61; PULSE 60; RESP 18
[2018-10-13] MEDS: HYDROmorphONE 1 MG/ML SYG IV PRN ×4 (01:44→21:04)
[2018-10-13] MEDS: HYDROCODONE/APAP (10/325) TAB PO PRN ×3 (03:42→17:26)
[2018-10-13] MEDS: PIPER-TAZO 3.375 GM IV (PMX) 100 ML IVPB SCH ×3 (06:35→18:22)
[2018-10-13] MEDS: KETOROLAC 15 MG INJ IV PRN (06:37)
[2018-10-13 07:26] VITALS: BP 111/56; PULSE 57; RESP 18
[2018-10-13] MEDS: LACTOBACILLUS RHAMNOSUS CAP PO SCH ×2 (09:22→21:04)
[2018-10-13] MEDS: DOCUSATE SODIUM 100 MG CAP PO SCH ×2 (09:22→21:04)
--- NOTE | 2018-10-13 10:07 | PN ---
Date/Time of Note Date/Time of Note DATE: 10/13/18 TIME: 10:01 Assessment/Plan Lines/Catheters IV Catheter Type (from Nrs): Saline Lock Cao in Place (from Nrs): No Assessment/Plan Chief Complaint/Hosp Course 1. Large left-sided retroperitoneal focal fluid collection with several foci of air adjacent to the left psoas muscle with fatty stranding: status post IR drain; repeat ct noted with persistent abscess still in iliopsoas muscle and retroperitoneal -tpa instillation attempted through drain for 1 day but still with minimal output; repeat ir drain today for cath upsizing -ortho consult since abscess continues to iliopsoas mucle> ortho reportedly st ates out of his scope -cont abx per sensitivity>per id -highly encourage cessation vaping and other illicit/recreational drugs 2. 2.4 cm hypodense pancreatic cystic mass in the body and tail junction; CT w panc protocol:Indeterminate, poorly defined hypoenhancing area is again seen in the pancreatic body/tail, possible neoplasm -will need hepatobiliary sx consult 3. illicit drug use -highly encourage cessation 4. Left flank and hip pain: improved -Pain management> per pain management 5. Normocytic normochromic anemia: -Monitor and transfuse as needed 6. Thrombocytosis: -consider heme consult if persistent -Trend 7. Elevated AST and alk phos: ast normalized, alk phos improving -Monitor 8. Hypoalbuminemia -Monitor -Treat infections 9. Anxiety: psych optimization 10. Bilateral adnexal mass: ovaries less prominent per ct -Gynecology consult Thank you. Patient seen and examined in collaboration with Dr. Damien Malhotra. Subjective 24 Hr Interval Summary IR drain again today. No fevers, chills, sob, congested cough, cp, palpitations, topete, dizziness, n/v/d/dysuria. Continues to complain of pain. Exam/Review of Systems Vital Signs Vitals Vital Signs Date Temp Pulse Resp B/P (MAP) Pulse Ox O2 O2 Flow FiO2 Time Delivery Rate 10/13/18 98.8 57 18 111/56 94 07:26 (74) 10/11/18 Room Air 14:45 Intake and Output 10/12/18 10/12/18 10/13/18 1515:00 23:00 07:00 IntakeIntake Total 1080 ml 580 ml 900 ml OutputOutput Total 600 ml 500 ml 0 ml BalanceBalance 480 ml 80 ml 900 ml Exam Free Text/Dictation Constitutional: alert, oriented Psych: no complaints, nl mood/affect Head: normocephalic, atraumatic Eyes: nl conjunctiva, EOMI, nl lids, nl sclera ENMT: nl external ears & nose, nl lips & teeth, mucosa pink and moist Neck: supple, non-tender; No jvd Respiratory: normal air movement; No congested cough, No labored breathing Cardiovascular: regular rate and rhythm, nl pulses Gastrointestinal: soft, non-tender Genitourinary - Female: nl external genitalia Musculoskeletal: nl extremities to inspection, nl gait and stance, other (Tenderness; edema left flank/back/inguinal/thigh-much improved); left lower quadrant pigtail drain to bulb suction (purulent drainage (min) Extremities: normal pulses, pitting pedal edema (1+) Neurological: nl speech Skin: No ecchymosis Results Result Diagram: 10/13/18 0434 10/12/18 0431 MARIYA CASTLE NP Oct 13, 2018 10:07
[2018-10-13] MEDS ORDERED: LIDOCAINE 1% (MPF) 5 ML VIAL ONE (13:11)
[2018-10-13] MEDS ORDERED: MIDAZOLAM 1 MG/ML 2 ML INJ ONE (13:11)
[2018-10-13] MEDS ORDERED: FENTAnyl 50 MCG/ML VIAL ONE (13:11)
--- NOTE | 2018-10-13 15:14 | PN ---
Date/Time of Note Date/Time of Note DATE: 10/13/18 TIME: 15:11 Assessment/Plan VTE Prophylaxis Risk score (from Ns)>0 risk: 1 SCD applied (from Ns): No SCD contraindicated: low risk/ambulating Pharmacological prophylaxis: NA/contraindicated Pharm contraindication: surgical contra Lines/Catheters [facility] Type [facility]from [facility] Saline Lock Urinary Cath still in place: No Assessment/Plan Hospital Course Assessment and plan 1. Infected RP hematoma, mod stable follow-up on cultures. treat pain. try for larger drain placement. If not may need tertiary opinion/exploratory surgery 2. RP hematoma post fall, trivial? Hold Lovenox/heparin due to hematoma 3. Debility may need PT/ home safety on discharge. Cont ambulation when Stable 4. Constipation 5. 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 Anemia likely iron deficiency vs acute blood loss, may need to hold Lovenox 7. Pancreatic cyst. For repeat imaging with MRI protocol and hepatic to biliary opinion soon S: 10/13 events noted patient in IR lab Objective: Vital signs stable Physical exam Deferred patient in IR lab Result Diagram: 10/13/18 0434 10/12/18 0431 Results 24hrs Laboratory Tests Test 10/13/18 04:34 10/13/18 04:35 White Blood Count 11.5 H Red Blood Count 3.15 L Hemoglobin 9.1 L Hematocrit 28.2 L Mean Corpuscular Volume 89.5 Mean Corpuscular Hemoglobin 28.9 L Mean Corpuscular Hemoglobin Concent 32.3 Red Cell Distribution Width 13.6 Platelet Count 821 H Mean Platelet Volume 8.2 Immature Granulocytes % 0.600 H Neutrophils % 69.6 Lymphocytes % 21.9 Monocytes % 6.4 Eosinophils % 1.2 Basophils % 0.3 Nucleated Red Blood Cells % 0.0 Immature Granulocytes # 0.070 H Neutrophils # 8.0 H Lymphocytes # 2.5 Monocytes # 0.7 Eosinophils # 0.1 Basophils # 0.0 Nucleated Red Blood Cells # 0.0 C-Reactive Protein 3.2 H Erythrocyte Sedimentation Rate 145 H Exam/Review of Systems Vital Signs Vitals Vital Signs Date Temp Pulse Resp B/P (MAP) Pulse Ox O2 O2 Flow FiO2 Time Delivery Rate 10/13/18 98.8 57 18 111/56 94 07:26 (74) 1/15/19 Room Air 14:45 Intake and Output 10/12/18 10/12/18 10/13/18 1515:00 23:00 07:00 IntakeIntake Total 1080 ml 580 ml 900 ml OutputOutput Total 600 ml 500 ml 0 ml BalanceBalance 480 ml 80 ml 900 ml Medications Medications Current Medications IV Flush (NS 3 ml) 3 ml PER PROTOCOL IV ; Start 10/04/18 at 16:30 Acetaminophen (Tylenol Tab) 650 mg Q6H PRN PO PAIN LEVEL 1-3 OR FEVER Last administered on 10/05/18 20:38; Admin Dose 650 MG; Start 10/04/18 at 16:30 Piperacillin Sod/ Tazobactam Sod 100 ml @ 200 mls/hr Q6 IVPB Last administered on 10/13/18 11:42; Admin Dose 200 MLS/HR; Start 10/04/18 at 18:00 Docusate Sodium (Colace) 100 mg BID PO Last administered on 10/13/18 09:22; Admin Dose 100 MG; Start 10/04/18 at 21:00 Lorazepam (Ativan) 1 mg Q6H PRN IV Anxiety Last administered on 10/11/18at 00:00; Admin Dose 1 MG; Start 10/07/18 at 09:00 Ondansetron HCl (Zofran Inj) 4 mg Q4H PRN IV NAUSEA AND/OR VOMITING; Start 10/10/18 at 11:00 Lactobacillus Acidophilus/ Rhamnosus (Culturelle) 1 cap BID PO Last administered on 10/13/18 09:22; Admin Dose 1 CAP; Start 10/10/18 at 21:00 Acetaminophen/ Hydrocodone Bitart ([place] (10/325)) 1 tab Q4H PRN PO MODERATE PAIN LEVEL 4-6 Last administered on 10/13/18 09:33; Admin Dose 1 TAB; Start 10/10/18 at 11:00 Hydromorphone HCl (Dilaudid) 1 mg Q6H PRN IV SEVERE PAIN LEVEL 7-10 Last administered on 10/13/18 15:05; Admin Dose 1 MG; Start 10/11/18 at 15:30 DARIUS LEGER MD Oct 13, 2018 15:14
[2018-10-13] MEDS: LORAZEPAM 2 MG INJ IV PRN (16:21)
[2018-10-13 19:29] VITALS: BP 115/57; PULSE 75; RESP 18
[2018-10-14] MEDS: PIPER-TAZO 3.375 GM IV (PMX) 100 ML IVPB SCH ×5 (00:24→23:00)
[2018-10-14] MEDS: HYDROCODONE/APAP (10/325) TAB PO PRN ×3 (00:24→13:23)
[2018-10-14 01:01] VITALS: BP 113/56; PULSE 68; RESP 18
[2018-10-14] MEDS: HYDROmorphONE 1 MG/ML SYG IV PRN ×4 (04:11→23:01)
[2018-10-14 07:24] VITALS: BP 115/61; PULSE 71; RESP 20
[2018-10-14] MEDS: LACTOBACILLUS RHAMNOSUS CAP PO SCH ×2 (08:59→21:21)
[2018-10-14] MEDS: DOCUSATE SODIUM 100 MG CAP PO SCH ×2 (09:00→21:21)
[2018-10-14] MEDS: LORAZEPAM 2 MG INJ IV PRN ×2 (09:00→17:57)
--- NOTE | 2018-10-14 09:41 | PN ---
Date/Time of Note Date/Time of Note DATE: 10/14/18 TIME: 09:37 Assessment/Plan Lines/Catheters IV Catheter Type (from Nrs): Saline Lock Cao in Place (from Nrs): No Assessment/Plan Chief Complaint/Hosp Course 1. Large left-sided retroperitoneal focal fluid collection with several foci of air adjacent to the left psoas muscle with fatty stranding: status post IR drain; repeat ct noted with persistent abscess still in iliopsoas muscle and retroperitoneal (not seen by ortho-reportedly out of his scope) - attempted tpa instillation through drain without increase of drainage; repeat IR drain and upsizing of cath 10/13/18 -cont drain -cont abx per sensitivity>per id -highly encourage cessation vaping and other illicit/recreational drugs 2. 2.4 cm hypodense pancreatic cystic mass in the body and tail junction; CT w panc protocol:Indeterminate, poorly defined hypoenhancing area is again seen in the pancreatic body/tail, possible neoplasm -will need hepatobiliary sx consult 3. illicit drug use -highly encourage cessation 4. Left flank and hip pain: improved -Pain management> per pain management 5. Normocytic normochromic anemia: -Monitor and transfuse as needed 6. Thrombocytosis: -consider heme consult if persistent -Trend 7. Elevated AST and alk phos: ast normalized, alk phos improving -Monitor 8. Hypoalbuminemia -Monitor -Treat infections 9. Anxiety: psych optimization 10. Bilateral adnexal mass: ovaries less prominent per ct -Gynecology consult Thank you. Patient seen and examined in collaboration with Dr. Damien Malhotra. Subjective 24 Hr Interval Summary S/p repeat ir drain and catheter upsizing yesterday. Some pain. No fevers, chills, sob, congested cough, cp, palpitations, otpete, dizziness, n/v/d/dysuria. Exam/Review of Systems Vital Signs Vitals Vital Signs Date Temp Pulse Resp B/P (MAP) Pulse Ox O2 O2 Flow FiO2 Time Delivery Rate 10/14/18 98.9 71 20 115/61 97 07:24 (79) 10/11/18 Room Air 14:45 Intake and Output 10/13/18 10/13/18 10/14/18 1515:00 23:00 07:00 IntakeIntake Total 340 ml 460 ml 200 ml OutputOutput Total 100 ml 50 ml BalanceBalance 340 ml 360 ml 150 ml Exam Free Text/Dictation Constitutional: alert, oriented Psych: no complaints, nl mood/affect Head: normocephalic, atraumatic Eyes: nl conjunctiva, EOMI, nl lids, nl sclera ENMT: nl external ears & nose, nl lips & teeth, mucosa pink and moist Neck: supple, non-tender; No jvd Respiratory: normal air movement; No congested cough, No labored breathing Cardiovascular: regular rate and rhythm, nl pulses Gastrointestinal: soft, non-tender Genitourinary - Female: nl external genitalia Musculoskeletal: nl extremities to inspection, nl gait and stance, other (Tenderness; edema left flank/back/inguinal/thigh-much improved); left lower quadrant pigtail drain to bulb suction (purulent drainage -mod) Extremities: normal pulses, Neurological: nl speech Skin: No ecchymosis Results Result Diagram: 10/14/18 0945 10/12/18 0431 MARIYA CASTLE NP Oct 14, 2018 09:41
--- NOTE | 2018-10-14 11:52 | CONS ---
Date/Time of Note Date/Time of Note DATE: 10/14/18 TIME: 11:49 Assessment/Plan Assessment/Plan Hospital Course 1) likely infected hematoma (retroperitoneal with extension to psoas) continue with vanco/zosyn at present await cx results from today's aspiration 10/06 - strep species (possible enterococcus) in abscess cavity continue with zosyn, change vanco to zyvox in case VRE is present since pt is still spiking fevers to review CT with radiology urine cx is NGTD 10/07 - only alpha strep found which is a common vaginal balwinder d/c zyvox and continue with zosyn alone WBC and fevers are improved re-image when drainage is <30cc for 24 hours will order repeat cx from the drainage 10/10 - spoke to nurse regarding no repeat cx of drainage done yet GC/chlamydia were negative pt had only 30cc of drainage in last [address], [address] abd/pelv with extent down to mid thigh continue with zosyn fever has resolved and WBC is back to WNL 10/11 - repeat cx is pending in lab CT yesterday shows some improvement but still with large area of involvement, (to review CT with radiology later) pt has little drainage from the catheter even though it is in the proper position, likely due to the loculations consider fibrolytic installations (i.e alteplase) to see if flow would improve from drainage catheter I suspect that she will need surgical intervention for more complete I&D of her large complicated abscess, doubt antibiotics alone will be curative 10/12 - reviewed CT with radiology from 10/10 the intramuscular abscess in the adductor pelvic muscle remains about the same and appears to be encapsulated, the fluid/abscess tracking down the iliopsoas muscle is not decreasing the abscess around the iliacus and anterior to is is somewhat smaller repeat wound cx is some growth but ID is pending alteplase in being used but it has not increased the outflow from the drain, in fact it is worse in last 24 hours I doubt current drain in place with resolve the intramuscular abscess and is likely to need surgical drainage I will discuss with Dr. 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 10/11 - improved on current CT Result Diagram: 10/14/18 0945 10/14/18 0945 Results 24hrs Laboratory Tests Test 10/14/18 09:45 White Blood Count 7.8 # Red Blood Count 3.20 L Hemoglobin 9.1 L Hematocrit 28.6 L Mean Corpuscular Volume 89.4 Mean Corpuscular Hemoglobin 28.4 L Mean Corpuscular Hemoglobin Concent 31.8 L Red Cell Distribution Width 13.5 Platelet Count 738 H Mean Platelet Volume 8.1 Immature Granulocytes % 0.500 H Neutrophils % 66.2 Lymphocytes % 25.2 Monocytes % 5.9 Eosinophils % 1.8 Basophils % 0.4 Nucleated Red Blood Cells % 0.0 Immature Granulocytes # 0.040 H Neutrophils # 5.2 Lymphocytes # 2.0 Monocytes # 0.5 Eosinophils # 0.1 Basophils # 0.0 Nucleated Red Blood Cells # 0.0 Prothrombin Time 13.2 Prothrombin Time Ratio 1.0 INR International Normalized Ratio 0.99 Sodium Level 138 Potassium Level 3.9 Chloride Level 101 Carbon Dioxide Level 29 Anion Gap 8 Blood Urea Nitrogen 6 L Creatinine 0.63 Est Glomerular Filtrat Rate mL/min > 60 Glucose Level 90 Calcium Level 9.2 Phosphorus Level 4.3 Magnesium Level 2.1 Total Bilirubin 0.2 Direct Bilirubin 0.00 Indirect Bilirubin 0.2 Aspartate Amino Transf (AST/SGOT) 25 Alanine Aminotransferase (ALT/SGPT) 15 Alkaline Phosphatase 149 H Total Protein 8.0 Albumin 3.6 Globulin 4.40 H Albumin/Globulin Ratio 0.81 Consultation Date/Type/Reason Admit Date/Time Oct 04, 2018 at 14:05 Initial Consult Date 10/05/18 Type of Consult ID Requesting Provider: FAITH AGUAYO NP 24 HR Interval Summary Free Text/Dictation pt is feeling better, less pain since the new drainage cath was placed yesterday no N, V, no D has BM about QOD Exam/Review of Systems Vital Signs Vitals Vital Signs Date Temp Pulse Resp B/P (MAP) Pulse Ox O2 O2 Flow FiO2 Time Delivery Rate 10/14/18 98.9 71 20 115/61 97 07:24 (79) 10/11/18 Room Air 14:45 Intake and Output 10/13/18 10/13/18 10/14/18 1515:00 23:00 07:00 IntakeIntake Total 340 ml 460 ml 200 ml OutputOutput Total 100 ml 50 ml BalanceBalance 340 ml 360 ml 150 ml Exam Constitutional: alert, oriented Eyes: nl sclera Respiratory: clear to auscultation Cardiovascular: regular rate and rhythm Gastrointestinal: soft, non-tender Medications Medications Current Medications IV Flush (NS 3 ml) 3 ml PER PROTOCOL IV ; Start 10/04/18 at 16:30 Acetaminophen (Tylenol Tab) 650 mg Q6H PRN PO PAIN LEVEL 1-3 OR FEVER Last administered on 10/05/18at 20:38; Admin Dose 650 MG; Start 10/04/18 at 16:30 Piperacillin Sod/ Tazobactam Sod 100 ml @ 200 mls/hr Q6 IVPB Last administered on 10/14/18at 06:03; Admin Dose 200 MLS/HR; Start 10/04/18 at 18:00 Docusate Sodium (Colace) 100 mg BID PO Last administered on 10/14/18at 09:00; Admin Dose 100 MG; Start 10/04/18 at 21:00 Lorazepam (Ativan) 1 mg Q6H PRN IV Anxiety Last administered on 10/14/18at 09:00; Admin Dose 1 MG; Start 10/07/18 at 09:00 Ondansetron HCl (Zofran Inj) 4 mg Q4H PRN IV NAUSEA AND/OR VOMITING; Start 10/10/18 at 11:00 Lactobacillus Acidophilus/ Rhamnosus (Culturelle) 1 cap BID PO Last administered on 10/14/18at 08:59; Admin Dose 1 CAP; Start 10/10/18 at 21:00 Acetaminophen/ Hydrocodone Bitart ([place] (10/325)) 1 tab Q4H PRN PO MODERATE PAIN LEVEL 4-6 Last administered on 10/14/18at 06:58; Admin Dose 1 TAB; Start 10/10/18 at 11:00 Hydromorphone HCl (Dilaudid) 1 mg Q6H PRN IV SEVERE PAIN LEVEL 7-10 Last administered on 10/14/18at 10:34; Admin Dose 1 MG; Start 10/11/18 at 15:30 DEREK DONATO MD Oct 14, 2018 11:52
[2018-10-14 15:34] VITALS: BP 122/59; PULSE 73; RESP 20
[2018-10-14 20:00] VITALS: BP 107/59; PULSE 74; RESP 18
--- NOTE | 2018-10-14 23:57 | PN ---
Date/Time of Note Date/Time of Note DATE: 10/14/18 TIME: 23:56 Assessment/Plan VTE Prophylaxis Risk score (from Nsg)>0 risk: 1 SCD applied (from Ns): No SCD contraindicated: low risk/ambulating Pharmacological prophylaxis: LMWH Lines/Catheters IV Catheter Type (from Nrsg): Peripheral IV Urinary Cath still in place: No Assessment/Plan Hospital Course Assessment and plan 1. Infected RP hematoma, mod stable follow-up on cultures. treat pain. try for larger drain placement. If not may need tertiary opinion/exploratory surgery 2. RP hematoma post fall, trivial? Hold Lovenox/heparin due to hematoma 3. Debility may need PT/ home safety on discharge. Cont ambulation when Stable 4. Constipation 5. 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 Anemia likely iron deficiency vs acute blood loss, may need to hold Lovenox 7. Pancreatic cyst. For repeat imaging with MRI protocol and hepatic to biliary opinion soon S: 10/13 events noted patient in IR lab 10/14: Less distress O: Vital signs stable Physical exam No pallor Regular Clear Bs + nt nd no r/r/g; drain CDI No edema Result Diagram: 10/14/18 0945 10/14/18 0945 Results 24hrs Laboratory Tests Test 10/14/18 09:45 White Blood Count 7.8 # Red Blood Count 3.20 L Hemoglobin 9.1 L Hematocrit 28.6 L Mean Corpuscular Volume 89.4 Mean Corpuscular Hemoglobin 28.4 L Mean Corpuscular Hemoglobin Concent 31.8 L Red Cell Distribution Width 13.5 Platelet Count 738 H Mean Platelet Volume 8.1 Immature Granulocytes % 0.500 H Neutrophils % 66.2 Lymphocytes % 25.2 Monocytes % 5.9 Eosinophils % 1.8 Basophils % 0.4 Nucleated Red Blood Cells % 0.0 Immature Granulocytes # 0.040 H Neutrophils # 5.2 Lymphocytes # 2.0 Monocytes # 0.5 Eosinophils # 0.1 Basophils # 0.0 Nucleated Red Blood Cells # 0.0 Prothrombin Time 13.2 Prothrombin Time Ratio 1.0 INR International Normalized Ratio 0.99 Sodium Level 138 Potassium Level 3.9 Chloride Level 101 Carbon Dioxide Level 29 Anion Gap 8 Blood Urea Nitrogen 6 L Creatinine 0.63 Est Glomerular Filtrat Rate mL/min > 60 Glucose Level 90 Calcium Level 9.2 Phosphorus Level 4.3 Magnesium Level 2.1 Total Bilirubin 0.2 Direct Bilirubin 0.00 Indirect Bilirubin 0.2 Aspartate Amino Transf (AST/SGOT) 25 Alanine Aminotransferase (ALT/SGPT) 15 Alkaline Phosphatase 149 H Total Protein 8.0 Albumin 3.6 Globulin 4.40 H Albumin/Globulin Ratio 0.81 Exam/Review of Systems Vital Signs Vitals Vital Signs Date Temp Pulse Resp B/P (MAP) Pulse Ox O2 O2 Flow FiO2 Time Delivery Rate 10/14/18 98.1 74 18 107/59 95 20:00 (75) 10/11/18 Room Air 14:45 Intake and Output 10/13/18 10/13/18 10/14/18 1414:59 22:59 06:59 IntakeIntake Total 340 ml 460 ml 200 ml OutputOutput Total 100 ml 50 ml BalanceBalance 340 ml 360 ml 150 ml Medications Medications Current Medications IV Flush (NS 3 ml) 3 ml PER PROTOCOL IV ; Start 10/04/18 at 16:30 Acetaminophen (Tylenol Tab) 650 mg Q6H PRN PO PAIN LEVEL 1-3 OR FEVER Last administered on 10/05/18at 20:38; Admin Dose 650 MG; Start 10/04/18 at 16:30 Piperacillin Sod/ Tazobactam Sod 100 ml @ 200 mls/hr Q6 IVPB Last administered on 10/14/18at 23:00; Admin Dose 200 MLS/HR; Start 10/04/18 at 18:00 Docusate Sodium (Colace) 100 mg BID PO Last administered on 10/14/18at 21:21; Admin Dose 100 MG; Start 10/04/18 at 21:00 Lorazepam (Ativan) 1 mg Q6H PRN IV Anxiety Last administered on 10/14/18at 17:57; Admin Dose 1 MG; Start 10/07/18 at 09:00 Ondansetron HCl (Zofran Inj) 4 mg Q4H PRN IV NAUSEA AND/OR VOMITING; Start 10/10/18 at 11:00 Lactobacillus Acidophilus/ Rhamnosus (Culturelle) 1 cap BID PO Last administered on 10/14/18at 21:21; Admin Dose 1 CAP; Start 10/10/18 at 21:00 Acetaminophen/ Hydrocodone Bitart ([place] (10/325)) 1 tab Q4H PRN PO MODERATE PAIN LEVEL 4-6 Last administered on 10/14/18at 13:23; Admin Dose 1 TAB; Start 10/10/18 at 11:00 Hydromorphone HCl (Dilaudid) 1 mg Q6H PRN IV SEVERE PAIN LEVEL 7-10 Last administered on 10/14/18 23:01; Admin Dose 1 MG; Start 10/11/18 at 15:30 DARIUS LEGER MD Oct 14, 2018 23:57
[2018-10-15 02:00] VITALS: BP 104/71; PULSE 72; RESP 18
[2018-10-15] MEDS: HYDROCODONE/APAP (10/325) TAB PO PRN ×4 (02:05→20:04)
[2018-10-15] MEDS: PIPER-TAZO 3.375 GM IV (PMX) 100 ML IVPB SCH ×4 (05:00→23:33)
[2018-10-15] MEDS: HYDROmorphONE 1 MG/ML SYG IV PRN ×4 (05:00→23:24)
[2018-10-15] MEDS: LACTOBACILLUS RHAMNOSUS CAP PO SCH ×2 (08:13→20:04)
[2018-10-15] MEDS: DOCUSATE SODIUM 100 MG CAP PO SCH ×2 (08:13→20:04)
[2018-10-15 08:19] VITALS: BP 108/63; PULSE 63; RESP 16
[2018-10-15 14:45] VITALS: BP 145/68; PULSE 61; RESP 16
--- NOTE | 2018-10-15 16:27 | PN ---
Date/Time of Note Date/Time of Note DATE: 10/15/18 TIME: 16:25 Assessment/Plan VTE Prophylaxis Risk score (from Nsg)>0 risk: 2 SCD applied (from Ns): No SCD contraindicated: low risk/ambulating Pharmacological prophylaxis: LMWH Lines/Catheters IV Catheter Type (from Nrs): Saline Lock Urinary Cath still in place: No Assessment/Plan Hospital Course Assessment and plan 1. Infected RP hematoma, stable follow-up on cultures. treat pain. sp IR drain exchange/placement. If not may need tertiary opinion/exploratory surgery 2. RP hematoma post fall, trivial? Hold Lovenox/heparin due to hematoma 3. Debility may need PT/ home safety on discharge. Cont ambulation when Stable 4. Constipation 5. 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 Anemia likely iron deficiency vs acute blood loss, may need to hold Lovenox 7. Pancreatic cyst. For repeat imaging with MRI protocol and hepato- biliary opinion soon S: 10/13 events noted patient in IR lab 10/14: Less distress 10/15: This drain appears to be draining more. Every 6 hours pain therapy is not working according to her. No fever diarrhea or constipation. States [place] does not work. I asked her to consider nsaids additionally. O: Vital signs stable Physical exam No pallor Regular Clear Bs + nt nd no r/r/g; drain CDI No edema Result Diagram: 10/15/18 1431 10/15/18 1431 Results 24hrs Laboratory Tests Test 10/15/18 14:31 White Blood Count 6.4 Red Blood Count 3.30 L Hemoglobin 9.4 L Hematocrit 29.5 L Mean Corpuscular Volume 89.4 Mean Corpuscular Hemoglobin 28.5 L Mean Corpuscular Hemoglobin Concent 31.9 L Red Cell Distribution Width 13.4 Platelet Count 690 H Mean Platelet Volume 8.0 Immature Granulocytes % 0.300 Neutrophils % 58.0 Lymphocytes % 32.6 Monocytes % 6.1 Eosinophils % 2.5 Basophils % 0.5 Nucleated Red Blood Cells % 0.0 Immature Granulocytes # 0.020 Neutrophils # 3.7 Lymphocytes # 2.1 Monocytes # 0.4 Eosinophils # 0.2 Basophils # 0.0 Nucleated Red Blood Cells # 0.0 Sodium Level 137 Potassium Level 4.1 Chloride Level 101 Carbon Dioxide Level 29 Anion Gap 7 Blood Urea Nitrogen 9 Creatinine 0.65 Est Glomerular Filtrat Rate mL/min > 60 Glucose Level 91 Calcium Level 9.2 Exam/Review of Systems Vital Signs Vitals Vital Signs Date Temp Pulse Resp B/P (MAP) Pulse Ox O2 O2 Flow FiO2 Time Delivery Rate 10/15/18 97.9 61 16 145/68 98 14:45 (93) 10/11/18 Room Air 14:45 Intake and Output 10/14/18 10/14/18 10/15/18 1515:00 23:00 07:00 IntakeIntake Total 940 ml 580 ml 680 ml OutputOutput Total 1075 ml 380 ml 50 ml BalanceBalance -135 ml 200 ml 630 ml Medications Medications Current Medications IV Flush (NS 3 ml) 3 ml PER PROTOCOL IV ; Start 10/04/18 at 16:30 Acetaminophen (Tylenol Tab) 650 mg Q6H PRN PO PAIN LEVEL 1-3 OR FEVER Last administered on 10/05/18at 20:38; Admin Dose 650 MG; Start 10/04/18 at 16:30 Piperacillin Sod/ Tazobactam Sod 100 ml @ 200 mls/hr Q6 IVPB Last administered on 10/15/18at 12:36; Admin Dose 200 MLS/HR; Start 10/04/18 at 18:00 Docusate Sodium (Colace) 100 mg BID PO Last administered on 10/15/18at 08:13; Admin Dose 100 MG; Start 10/04/18 at 21:00 Lorazepam (Ativan) 1 mg Q6H PRN IV Anxiety Last administered on 10/14/18at 17:57; Admin Dose 1 MG; Start 10/07/18 at 09:00 Ondansetron HCl (Zofran Inj) 4 mg Q4H PRN IV NAUSEA AND/OR VOMITING; Start 10/10/18 at 11:00 Lactobacillus Acidophilus/ Rhamnosus (Culturelle) 1 cap BID PO Last administered on 10/15/18at 08:13; Admin Dose 1 CAP; Start 10/10/18 at 21:00 Acetaminophen/ Hydrocodone Bitart ([place] (10/325)) 1 tab Q4H PRN PO MODERATE PAIN LEVEL 4-6 Last administered on 10/15/18at 14:00; Admin Dose 1 TAB; Start 10/10/18 at 11:00 Hydromorphone HCl (Dilaudid) 1 mg Q6H PRN IV SEVERE PAIN LEVEL 7-10 Last administered on 10/15/18at 11:06; Admin Dose 1 MG; Start 10/11/18 at 15:30 DARIUS LEGER MD Oct 15, 2018 16:27
[2018-10-15] MEDS: IBUPROFEN 800 MG TAB PO SCH ×2 (18:03→23:32)
[2018-10-15] MEDS: FAMOTIDINE 20 MG TAB PO SCH (18:03)
[2018-10-15 20:00] VITALS: BP 121/53; PULSE 63; RESP 18
[2018-10-16] MEDS: HYDROCODONE/APAP (10/325) TAB PO PRN ×4 (01:42→20:09)
[2018-10-16 01:55] VITALS: BP 114/74; PULSE 55; RESP 18
[2018-10-16] MEDS: HYDROmorphONE 1 MG/ML SYG IV PRN ×4 (05:25→23:22)
[2018-10-16] MEDS: PIPER-TAZO 3.375 GM IV (PMX) 100 ML IVPB SCH ×4 (05:36→23:22)
[2018-10-16] MEDS: IBUPROFEN 800 MG TAB PO SCH ×4 (05:36→23:23)
[2018-10-16 08:03] VITALS: BP 111/61; PULSE 59; RESP 18
[2018-10-16] MEDS: LACTOBACILLUS RHAMNOSUS CAP PO SCH ×2 (08:28→20:10)
[2018-10-16] MEDS: DOCUSATE SODIUM 100 MG CAP PO SCH ×2 (08:28→20:10)
[2018-10-16] MEDS: FAMOTIDINE 20 MG TAB PO SCH (08:28)
--- NOTE | 2018-10-16 10:28 | PN ---
Date/Time of Note Date/Time of Note DATE: 10/16/18 TIME: 10:26 Assessment/Plan VTE Prophylaxis Risk score (from Ns)>0 risk: 7 SCD applied (from [facility] No SCD contraindicated: patient refusal Pharmacological prophylaxis: LMWH Lines/Catheters IV Catheter Type (from [facility]): [place] Urinary Cath still in place: No Assessment/Plan Hospital Course Assessment and plan 1. Infected RP hematoma, stable treat pain. sp IR drain exchange/placement. Tertiary opinion prn; home tomorrow if ok w ID. 2. RP hematoma post fall, trivial? Hold Lovenox/heparin due to hematoma 3. Debility may need PT/ home safety on discharge. Cont ambulation when Stable 4. Constipation 5. Adnexal mass? for MEAT BUTCHER eval; may need pelvic ultrasound or MRI on follow-up 6. Anemia likely iron deficiency vs acute blood loss, may need to hold Lovenox 7. Pancreatic cyst. For repeat imaging with MRI protocol and hepato- biliary opinion soon 8. History of chronic PCO 9. S: 10/13 events noted patient in IR lab 10/14: Less distress 10/15: This drain appears to be draining more. Every 6 hours pain therapy is not working according to her. No fever diarrhea or constipation. States [place] does not work. I asked her to consider nsaids additionally. 10/16: Less discomfort. No cough fever. O: Vital signs stable Physical exam No pallor Regular Clear Bs + nt nd no r/r/g; drain CDI No edema Result Diagram: 10/15/18 1431 10/15/18 1431 Results 24hrs Laboratory Tests Test 10/15/18 14:31 White Blood Count 6.4 Red Blood Count 3.30 L Hemoglobin 9.4 L Hematocrit 29.5 L Mean Corpuscular Volume 89.4 Mean Corpuscular Hemoglobin 28.5 L Mean Corpuscular Hemoglobin Concent 31.9 L Red Cell Distribution Width 13.4 Platelet Count 690 H Mean Platelet Volume 8.0 Immature Granulocytes % 0.300 Neutrophils % 58.0 Lymphocytes % 32.6 Monocytes % 6.1 Eosinophils % 2.5 Basophils % 0.5 Nucleated Red Blood Cells % 0.0 Immature Granulocytes # 0.020 Neutrophils # 3.7 Lymphocytes # 2.1 Monocytes # 0.4 Eosinophils # 0.2 Basophils # 0.0 Nucleated Red Blood Cells # 0.0 Sodium Level 137 Potassium Level 4.1 Chloride Level 101 Carbon Dioxide Level 29 Anion Gap 7 Blood Urea Nitrogen 9 Creatinine 0.65 Est Glomerular Filtrat Rate mL/min > 60 Glucose Level 91 Calcium Level 9.2 Exam/Review of Systems Vital Signs Vitals Vital Signs Date Temp Pulse Resp B/P (MAP) Pulse Ox O2 O2 Flow FiO2 Time Delivery Rate 10/16/18 98.2 59 18 111/61 97 08:03 (78) Intake and Output 10/15/18 10/15/18 10/16/18 1515:00 23:00 07:00 IntakeIntake Total 1300 ml 580 ml 400 ml OutputOutput Total 15 ml 35 ml BalanceBalance 1300 ml 565 ml 365 ml Medications Medications Current Medications IV Flush (NS 3 ml) 3 ml PER PROTOCOL IV ; Start 10/04/18 at 16:30 Acetaminophen (Tylenol Tab) 650 mg Q6H PRN PO PAIN LEVEL 1-3 OR FEVER Last administered on 10/05/18at 20:38; Admin Dose 650 MG; Start 10/04/18 at 16:30 Piperacillin Sod/ Tazobactam Sod 100 ml @ 200 mls/hr Q6 IVPB Last administered on 10/16/18at 05:36; Admin Dose 200 MLS/HR; Start 10/04/18 at 18:00 Docusate Sodium (Colace) 100 mg BID PO Last administered on 10/16/18at 08:28; Admin Dose 100 MG; Start 10/04/18 at 21:00 Lorazepam (Ativan) 1 mg Q6H PRN IV Anxiety Last administered on 10/14/18at 17:57; Admin Dose 1 MG; Start 10/07/18 at 09:00 Ondansetron HCl (Zofran Inj) 4 mg Q4H PRN IV NAUSEA AND/OR VOMITING; Start 10/10/18 at 11:00 Lactobacillus Acidophilus/ Rhamnosus (Culturelle) 1 cap BID PO Last administered on 10/16/18at 08:28; Admin Dose 1 CAP; Start 10/10/18 at 21:00 Acetaminophen/ Hydrocodone Bitart ([place] (10/325)) 1 tab Q4H PRN PO MODERATE PAIN LEVEL 4-6 Last administered on 10/16/18at 07:17; Admin Dose 1 TAB; Start 10/10/18 at 11:00 Hydromorphone HCl (Dilaudid) 1 mg Q6H PRN IV SEVERE PAIN LEVEL 7-10 Last administered on 10/16/18at 05:25; Admin Dose 1 MG; Start 10/11/18 at 15:30 Famotidine (Pepcid) 20 mg DAILY PO Last administered on 10/16/18at 08:28; Admin Dose 20 MG; Start 10/15/18 at 16:30 Ibuprofen (Motrin) 800 mg Q6 PO Last administered on 10/16/18at 05:36; Admin Dose 800 MG; Start 10/15/18 at 18:00; Stop 10/17/18 at 23:00 DARIUS LEGER MD Oct 16, 2018 10:28
[2018-10-16 13:38] VITALS: BP 115/60; PULSE 68; RESP 18
[2018-10-16 20:02] VITALS: BP 133/71; PULSE 61; RESP 18
[2018-10-17 01:30] VITALS: BP 109/55; PULSE 60; RESP 18
[2018-10-17] MEDS: HYDROCODONE/APAP (10/325) TAB PO PRN ×3 (02:39→15:01)
[2018-10-17] MEDS: HYDROmorphONE 2 MG TAB PO PRN ×4 (03:35→16:37)
[2018-10-17] MEDS: PIPER-TAZO 3.375 GM IV (PMX) 100 ML IVPB SCH (06:25)
[2018-10-17] MEDS: IBUPROFEN 800 MG TAB PO SCH ×3 (06:25→18:00)
[2018-10-17 07:20] VITALS: BP 120/69; PULSE 61; RESP 20
--- NOTE | 2018-10-17 07:53 | CONS ---
Date/Time of Note Date/Time of Note DATE: 10/17/18 TIME: 07:45 Assessment/Plan Assessment/Plan Hospital Course 1) likely infected hematoma (retroperitoneal with extension to psoas) continue with vanco/zosyn at present await cx results from today's aspiration 10/06 - strep species (possible enterococcus) in abscess cavity continue with zosyn, change vanco to zyvox in case VRE is present since pt is still spiking fevers to review CT with radiology urine cx is NGTD 10/07 - only alpha strep found which is a common vaginal balwinder d/c zyvox and continue with zosyn alone WBC and fevers are improved re-image when drainage is <30cc for 24 hours will order repeat cx from the drainage 10/10 - spoke to nurse regarding no repeat cx of drainage done yet GC/chlamydia were negative pt had only 30cc of drainage in last [address], [address] abd/pelv with extent down to mid thigh continue with zosyn fever has resolved and WBC is back to WNL 10/11 - repeat cx is pending in lab CT yesterday shows some improvement but still with large area of involvement, (to review CT with radiology later) pt has little drainage from the catheter even though it is in the proper position, likely due to the loculations consider fibrolytic installations (i.e alteplase) to see if flow would improve from drainage catheter I suspect that she will need surgical intervention for more complete I&D of her large complicated abscess, doubt antibiotics alone will be curative 10/12 - reviewed CT with radiology from 10/10 the intramuscular abscess in the adductor pelvic muscle remains about the same and appears to be encapsulated, the fluid/abscess tracking down the iliopsoas muscle is not decreasing the abscess around the iliacus and anterior to is is somewhat smaller repeat wound cx is some growth but ID is pending alteplase in being used but it has not increased the outflow from the drain, in fact it is worse in last 24 hours I doubt current drain in place with resolve the intramuscular abscess and is likely to need surgical drainage I will discuss with Dr. Malhotra later today about this 10/14 - pt got a larger drainage catheter placed yesterday, 150cc of pus came out immediately and drain continues to function well pt has less pain now and to try to walk with PT this afternoon repeat cx are pending but so far no significant growth continue with zosyn 10/17 - last culture from drain was neg d/c zosyn and start augmentin and continue for one week post removal of drain in order for pt to go home she will need PT, home health nurse to monitor drainage, get a CT scheduled when drainage is <15-30cc/24 hours to see if drain can be removed the other option to consider is acute rehab so that drain can be removed while still in house and pt can get more aggressive PT pain management with oral dilaudid will be very difficult as an outpt case management referral regarding her medi-lorena running out in 10 days 2) adnexal masses unclear if these are benign or PID or nodules gc/clamydia RNA has been sent off RPR is pending, if not an STD then current antibiotics would be sufficient for PID await WATERSHED COORDINATOR input 10/11 - improved on current CT Result Diagram: 10/15/18 1431 10/15/18 1431 Consultation Date/Type/Reason Admit Date/Time Oct 04, 2018 at 14:05 Initial Consult Date 10/05/18 Type of Consult ID Requesting Provider: FAITH AGUAYO NP 24 HR Interval Summary Free Text/Dictation pt still having drainage (70cc last 24 hours) no N, V, D still with pain when she tries to lift up leg, she is only able to walk to door of her room Exam/Review of Systems Vital Signs Vitals Vital Signs Date Temp Pulse Resp B/P (MAP) Pulse Ox O2 O2 Flow FiO2 Time Delivery Rate 10/17/18 98.3 61 20 120/69 98 07:20 (86) Intake and Output 10/16/18 10/16/18 10/17/18 1515:00 23:00 07:00 IntakeIntake Total 820 ml 540 ml 1200 ml OutputOutput Total 35 ml 35 ml BalanceBalance 820 ml 505 ml 1165 ml Exam Constitutional: alert, oriented Eyes: nl sclera ENMT: mucosa pink and moist Respiratory: clear to auscultation Cardiovascular: regular rate and rhythm Gastrointestinal: soft, non-tender, other (pelvic drain is present) Medications Medications Current Medications IV Flush (NS 3 ml) 3 ml PER PROTOCOL IV ; Start 10/04/18 at 16:30 Acetaminophen (Tylenol Tab) 650 mg Q6H PRN PO PAIN LEVEL 1-3 OR FEVER Last administered on 10/05/18 20:38; Admin Dose 650 MG; Start 10/04/18 at 16:30 Piperacillin Sod/ Tazobactam Sod 100 ml @ 200 mls/hr Q6 IVPB Last administered on 10/17/18 06:25; Admin Dose 200 MLS/HR; Start 10/04/18 at 18:00 Docusate Sodium (Colace) 100 mg BID PO Last administered on 10/16/18 20:10; Admin Dose 100 MG; Start 10/04/18 at 21:00 Lorazepam (Ativan) 1 mg Q6H PRN IV Anxiety Last administered on 10/14/18 17:57; Admin Dose 1 MG; Start 10/07/18 at 09:00 Ondansetron HCl (Zofran Inj) 4 mg Q4H PRN IV NAUSEA AND/OR VOMITING; Start 10/10/18 at 11:00 Lactobacillus Acidophilus/ Rhamnosus (Culturelle) 1 cap BID PO Last administered on 10/16/18 20:10; Admin Dose 1 CAP; Start 10/10/18 at 21:00 Acetaminophen/ Hydrocodone Bitart ([place] (10/325)) 1 tab Q4H PRN PO MODERATE PAIN LEVEL 4-6 Last administered on 10/17/18 02:39; Admin Dose 1 TAB; Start 10/10/18 at 11:00 Famotidine (Pepcid) 20 mg DAILY PO Last administered on 10/16/18 08:28; Admin Dose 20 MG; Start 10/15/18 at 16:30 Ibuprofen (Motrin) 800 mg Q6 PO Last administered on 10/17/18 06:25; Admin Dose 800 MG; Start 10/15/18 at 18:00; Stop 10/17/18 at 23:00 Enoxaparin Sodium (Lovenox) 30 mg DAILY SC ; Start 10/17/18 at 09:00 Hydromorphone HCl (Dilaudid) 2 mg Q4H PRN PO SEVERE PAIN LEVEL 7-10 Last administered on 10/17/18 03:35; Admin Dose 2 MG; Start 10/17/18 at 03:00 DEREK DONATO MD Oct 17, 2018 07:53
[2018-10-17] MEDS: LACTOBACILLUS RHAMNOSUS CAP PO SCH (07:56)
[2018-10-17] MEDS: DOCUSATE SODIUM 100 MG CAP PO SCH (07:56)
[2018-10-17] MEDS: FAMOTIDINE 20 MG TAB PO SCH (07:56)
[2018-10-17] MEDS ORDERED: AMOXICILLIN/CLAV 875 MG TAB PO SCH (09:00)
[2018-10-17] MEDS ORDERED: ENOXAPARIN 30 MG/0.3 ML SYG SC SCH (09:00)
--- NOTE | 2018-10-17 10:49 | PN ---
Date/Time of Note Date/Time of Note DATE: 10/17/18 TIME: 10:46 Assessment/Plan Lines/Catheters IV Catheter Type (from Nrs): Peripheral IV Cao in Place (from Nrs): No Assessment/Plan Chief Complaint/Hosp Course 1. Large left-sided retroperitoneal focal fluid collection with several foci of air adjacent to the left psoas muscle with fatty stranding: status post IR drain; repeat ct noted with persistent abscess still in iliopsoas muscle and retroperitoneal (not seen by ortho-reportedly out of his scope) - attempted tpa instillation through drain without increase of drainage; repeat IR drain and upsizing of cath 10/13/18 -cont drain -cont abx per sensitivity>per id -highly encourage cessation vaping and other illicit/recreational drugs 2. 2.4 cm hypodense pancreatic cystic mass in the body and tail junction; CT w panc protocol:Indeterminate, poorly defined hypo-enhancing area is again seen in the pancreatic body/tail, possible neoplasm -will need hepatobiliary sx consult > since leaving patient to f/u as outpt 3. Illicit drug use -highly encourage cessation 4. Left flank and hip pain: improved -Pain management> per pain management 5. Normocytic normochromic anemia: -Monitor and transfuse as needed 6. Thrombocytosis probably reactive/inflammatory -monitor 7. Elevated AST and alk phos: ast normalized, alk phos improving -Monitor 8. Hypoalbuminemia -diet optimization -Treat infections 9. Anxiety: psych optimization 10. Bilateral adnexal mass: ovaries less prominent per ct -Gynecology consult as outpt Thank you Subjective 24 Hr Interval Summary IR drain with decreasing drainage. Possible discharge pending. Pain improved. No fevers, chills, sob, congested cough, cp, palpitations, topete, dizziness, n/v/d/dysuria. Exam/Review of Systems Vital Signs Vitals Vital Signs Date Temp Pulse Resp B/P (MAP) Pulse Ox O2 O2 Flow FiO2 Time Delivery Rate 10/17/18 98.3 61 20 120/69 98 07:20 (86) Intake and Output 10/16/18 10/16/18 10/17/18 1515:00 23:00 07:00 IntakeIntake Total 820 ml 540 ml 1200 ml OutputOutput Total 35 ml 35 ml BalanceBalance 820 ml 505 ml 1165 ml Exam Free Text/Dictation Constitutional: alert, oriented Psych: no complaints, nl mood/affect Head: normocephalic, atraumatic Eyes: nl conjunctiva, EOMI, nl lids, nl sclera ENMT: nl external ears & nose, nl lips & teeth, mucosa pink and moist Neck: supple, non-tender; No jvd Respiratory: normal air movement; No congested cough, No labored breathing Cardiovascular: regular rate and rhythm, nl pulses Gastrointestinal: soft, non-tender Genitourinary - Female: nl external genitalia Musculoskeletal: nl extremities to inspection, nl gait and stance, other (Tenderness; edema left flank/back/inguinal/thigh-much improved); left lower quadrant pigtail drain to bulb suction (purulent drainage -mod) Extremities: normal pulses, Neurological: nl speech Skin: No ecchymosis Results Result Diagram: 10/15/18 1431 10/15/18 1431 KRISTA DE LEÓN MD Oct 17, 2018 10:49
[2018-10-17 15:00] VITALS: BP 111/63; PULSE 64; RESP 20
--- NOTE | 2018-10-17 15:58 | DS ---
Date/Time of Note Date/Time of Note DATE: 10/17/18 TIME: 15:49 Discharge Summary Admission/Discharge Info Admit Date/Time Oct 04, 2018 at 14:05 Discharge Date/Time Patient Condition: Stable Procedures CT#3 PROCEDURE: CT guided pelvic abscess drainage replacement. CLINICAL INDICATION: Left pelvic iliopsoas and retroperitoneal abscess. TECHNIQUE: Informed consent was obtained. The procedure, risks, benefits, complications and alternatives were explained to the patient. Risks including bleeding and infection were explained. The patient understood and was willing to proceed. A procedural pause was performed. The patient's name, date of , and procedure to be performed were verified. One or more of the following dose reduction techniques were used: Automated exposure control, adjustment of the mA and/or kV according to patient size, use of iterative reconstruction technique. DICOM images are available. Using local anesthetic, sterile technique and CT guidance, 0.035-inch Amplatz guide wire was introduced into the left pelvic abscess through the existing catheter. The tract was dilated to 12 Samoan. A 12 [place]oan multipurpose drainage catheter was advanced over the guidewire into the abscess. The guidewire was removed. Additional scanning was performed confirming position. The catheter was then sutured to the patient's skin with 2-0 silk. Approximately 150 ml of pus was aspirated. The catheter was connected to a drainage bag. A dressing was applied. The patient tolerated procedure well. COMPARISON: None. FINDINGS: Final images demonstrate the drainage catheter in satisfactory position within the pelvic abscess. Specimens: Fluid from the fluid collection. Blood loss: 1 ml. Complications: None. Turf Grower: None. Anesthesia: Local and moderate sedation. Graft/Implant: 12 -Samoan drainage catheter. IMPRESSION: Successful CT guided 12 -Samoan pelvic abscess drainage catheter replacement. nitza-Physician Eros Date Time Pelvic Ultrasound IMPRESSION: Unremarkable uterus. Ovaries not well visualized. If characterization of these structures is needed repeat exam or MRI is recommended. 3.4 cm heterogeneously hypoechoic nodules in the bilateral adnexa. These likely correspond to the adnexal masses seen on prior CT. Etiology of these nodules is uncertain. These could reflect poorly visualized ovaries versus adnexal soft tissue nodules or debris filled cysts. If further characterization is needed MRI should be considered. If further characterization of the organs of the pelvis is needed MRI should be considered. .Joby Daniels MD, MD Date Time Hx of Present Illness 33-year-old female who denies any significant past medical history who is status post ground-level fall on 09/18/2018 and has been evaluated at multiple emergency rooms and an outpatient orthopedic surgeon for a left iliacus muscle abscess who presented to the emergency room on 10/04/2018 because of fevers, chills, and significant left hip/lower extremity pain with evidence of sepsis with leukocytosis, tachycardia, and febrile illness Hospital Course Assessment and plan 1. Infected RP hematoma, stable treat pain. sp IR drain exchange/placement. Tertiary opinion prn; dc home on PO augmentin. 2. RP hematoma post fall, trivial? Hold Lovenox/heparin due to hematoma 3. Debility may need PT/ home safety on discharge. Cont ambulation when Stable 4. Constipation 5. Adnexal mass? for FAMILY COURT COUNSELLOR eval; may need pelvic ultrasound or MRI on follow-up 6. Anemia likely iron deficiency vs acute blood loss, may need to hold Lovenox 7. Pancreatic cyst. For repeat imaging with MRI protocol and hepato- biliary opinion soon 8. History of chronic PCO General Surgery -& ID 2wks FAMILY [address] COUNSELLOR 2-4wks PCP 1-2wks Home Health for drain care. CT A/P prior to Surgeons visit. S: 10/13 events noted patient in IR lab 10/14: Less distress 10/15: This drain appears to be draining more. Every 6 hours pain therapy is not working according to her. No fever diarrhea or constipation. States [place] does not work. I asked her to consider nsaids additionally. 10/16: Less discomfort. No cough fever. 10/17: no events Home Meds No Active Prescriptions or Reported Meds Primary Care Provider Care Physician No Primary Time spent on discharge: > 30 minutes DARIUS LEGER MD Oct 17, 2018 15:58
--- NOTE | 2018-10-17 16:00 | PDOCDIS ---
Discharge Instructions CONDITION [id number] Patient Condition: [id number] Stable HOME CARE INSTRUCTIONS: [id number] Special Diet: Anplo1c REG ACTIVITY: [id number] Activity Restrictions: [id number] Slowly Increase Activity Avoid heavy lifting FOLLOW UP/APPOINTMENTS Follow-up Plan PCP 1wk General Surgeon Dr. Abby Malhotra & ID Dr. Khan 2wks FREIGHT RATE ANALYST- OB 4wks DARIUS LEGER MD Oct 17, 2018 16:00
[2018-10-17] MEDS ORDERED: AMOX1TAB10 PO (16:02)
[2018-10-17] MEDS ORDERED: HYDR2TAB36 PO (16:02)
[2018-10-17] MEDS ORDERED: ACET325T33 PO (16:02)
[2018-10-17] MEDS ORDERED: DOCU-216 PO (16:02)
[2018-10-17] MEDS ORDERED: IBUP800T48 PO (16:02)
[2018-10-17] MEDS ORDERED: FAMO20TA18 PO (16:02)
[2018-10-17] MEDS ORDERED: LACT1CAP28 PO (16:02)
--- NOTE | 2018-11-01 10:00 | CONS ---
Consultation Date/Type/Reason Admit Date/Time Oct 04, 2018 at 14:05 Date/Time of Note DATE: 11/01/18 TIME: 09:53 Hx of Present Illness Pain management consultation on this pleasant 33-year-old female readmitted for pelvic pain and lateral lower extremity discomfort anteriorly going down to both ankles. Patient has a recent past medical history of mechanical fall with multiple bruising and abscess of her psoas muscle on the left-hand side. Presented 1 month ago with sepsis and with leukocytosis with intramuscular abscess and intra-abdominal fluid collection present to be secondary to abscess also at that time patient had a large retroperitoneal collection, left iliac left psoas muscle abscess hematoma, bilateral adnexal masses, transaminitis. Patient was started off on broad spectrum IV antibiotic coverage and I was asked to evaluate patient for pain management at that time. Initially she was receptive to have adequate relief of her discomfort however I witnessed a an argument between she and her boyfriend in room and he was accusatory concerned that patient might be taking too much opioids during this hospitalization there was no reference made that she had been taking opiates prior to this admission. Period of time patient remain stoic but after procedures patient's pain exacerbated and she allowed us to medicate her with low doses of opioids p.o. and IV. Patient is complaining of pain rated 3/10 with radiation as listed as above, denies nausea vomiting abdominal discomfort frequency burning vaginal discharge. With current medication she denies mental cloudiness sweating fatigue drowsiness. Insofar as past medical history prior to this hospitalization patient has no history of purposeful oversedation negative mood changes time she is asking for reasonable low doses oral pain control medications she is not negotiating for higher doses of pain control meds. Not negotiation for different routes of administration she has not asked for certain pain medications to control her discomfort. Non-smoker nondrinker current pain does interfere with her physical functioning and is sleeping patterns moderately. Constitutional: no complaints, improved Eyes: no complaints ENT: no complaints Respiratory: no complaints Cardiovascular: no complaints Gastrointestinal: no complaints Genitourinary: no complaints Musculoskeletal: no complaints Skin: no complaints Neurologic: no complaints Endocrine: no complaints Lymphatic: no complaints Psychological: no complaints, nl mood/affect Immunologic: no complaints Past Medical History Medical History: no pertinent history Home Meds Active Scripts Lactobacillus Rhamnosus GG (Culturelle) 1 Each Capsule, 1 CAP PO BID for 30 Days, #30 CAP 1 Refill Prov:DARIUS LEGER MD 10/17/18 Famotidine* (Famotidine*) 20 Mg Tablet, 20 MG PO DAILY for 10 Days, #10 TAB otc Prov:DARIUS LEGER MD 10/17/18 Docusate Sodium (Dok) 100 Mg Capsule, 100 MG PO BID for 5 Days, CAP Prov:DARIUS LEGER MD 10/17/18 Hydromorphone Hcl* (Dilaudid*) 2 Mg Tablet, 2 MG PO Q4H PRN for SEVERE PAIN LEVEL 7-10 for 7 Days, #30 TAB Prov:DARIUS LEGER MD 10/17/18 Ibuprofen* (Motrin*) 800 Mg Tab, 800 MG PO Q6 for 10 Days, #30 TAB Prov:DARIUS LEGER MD 10/17/18 Acetaminophen* (Tylenol*) 325 Mg Tablet, 650 MG PO Q6H PRN for PAIN LEVEL 1-3 OR FEVER for 1 Day, TAB Prov:DARIUS LEGER MD 10/17/18 Amoxicillin/Potassium Clav (Amox-Clav 875-125 mg Tablet) 875-125 mg Tab, 875 MG PO BID for 14 Days, #30 TAB Prov:DARIUS LEGER MD 10/17/18 Allergies: Coded Allergies: No Known Allergy (Unverified , 10/04/18) Past Surgical History Past Surgical Hx: no surgical history Social History Alcohol Use: none Smoking Status: Never smoker Drug Use: none Exam/Review of Systems Exam Constitutional: alert, oriented, well developed Psych: anxiety Eyes: nl conjunctiva, EOMI, nl lids, nl sclera, PERRL ENMT: nl external ears & nose, nl lips & teeth, nl nasal mucosa & septum Neck: supple, non-tender Respiratory: clear to auscultation, normal air movement; No congested cough, No crackles/rales, No diminished breath sounds, No intercostal retraction, No labored breathing, No respirations, No tactile fremitus, No wheezing, No other Cardiovascular: regular rate and rhythm, nl pulses; No bruits, No diastolic murmur, No edema, No gallop, No irregular rhythm, No jugular venous distention (JVD), No murmurs/extra sounds, No rub, No systolic murmur, No S3, No S4, No other Gastrointestinal: soft, nl liver, spleen, non-tender; No ascites, No bowel sounds, No distended, No firm, No hepatomegaly, No mass, No rebound or guarding, No splenomegaly, No surgical scars, No tender, No other Genitourinary - Female: No nl adnexae, No nl external genitalia, No CMT, No CVA tenderness, No uterus, No other Musculoskeletal: No nl extremities to inspection, No nl gait and stance, No joint tenderness, No muscle tone, No muscle weakness, No range of motion, No spine non-tender, No swelling, No other Extremities: No normal pulses, No calf tenderness, No cyanosis, No clubbing, No edema, No pitting pedal edema, No palpable cord, No tenderness, No other Neurological: No SHOWER ENCLOSURE INSTALLER II-XII intact, No nl mental status, No nl speech, No nl strength, No confused, No DTR's symmetric, No focal weakness, No lethargic, No numbness, No reflexes, No unresponsive, No other ASHLEIGH CHOUDHURY Nov 01, 2018 10:00
[2018-11-02] MEDS ORDERED: HYDR-4011 PO (12:05)
[2018-11-02] MEDS ORDERED: AMOX1TAB10 PO (12:05)
== END 2018-10-17 19:04 | disposition home health service (06) | DRG 853 ==
LOC: FTE 10:00 → 2NE 14:05
PROVIDERS: ADMIT Internal Medicine; ATTEND Internal Medicine
PROC: 0W9H30Z Drainage of Retroperitoneum with Drainage Device, Percutaneous Approach (ICD-10-PCS; principal; 2018-10-05)
PROC: 0WPH30Z Removal of Drainage Device from Retroperitoneum, Percutaneous Approach (ICD-10-PCS; 2018-10-13)
PROC: 0K9P30Z Drainage of Left Hip Muscle with Drainage Device, Percutaneous Approach (ICD-10-PCS; 2018-10-13)
DX: A41.9 Sepsis, unspecified organism (principal); K68.12 Psoas muscle abscess; K68.19 Other retroperitoneal abscess; K86.2 Cyst of pancreas; D50.9 Iron deficiency anemia, unspecified; D64.9 Anemia, unspecified; D47.3 Essential (hemorrhagic) thrombocythemia; E88.09 Other disorders of plasma-protein metabolism, not elsewhere classified; F19.90 Other psychoactive substance use, unspecified, uncomplicated; F41.9 Anxiety disorder, unspecified; K59.00 Constipation, unspecified; M25.552 Pain in left hip; R53.81 Other malaise; R19.09 Other intra-abdominal and pelvic swelling, mass and lump; R74.0 Nonspecific elevation of levels of transaminase and lactic acid dehydrogenase [LDH]; S30.0XXA Contusion of lower back and pelvis, initial encounter; W19.XXXA Unspecified fall, initial encounter
CPT/HCPCS: 36415; 71045; 74177; 74178; 76856; 77012; 80048; 80053; 80202; 80307; 81001; 82270; 82550; 82728; 83036; 83540; 83605; 83690; 83735; 84100; 84443; 84484; 84703; 85025; 85610; 85651; 85730; 86140; 86592; 86703; 86704; 86709; 86803; 87040; 87070; 87075; 87086; 87102; 87340; 87400; 87591; 93005; 96361; 96374; 96375; 97110; 97116; 97162; 97167; 97530; C1729; J1170; J1885; J2060; J2250; J2270; J2274; J2405; J2543; J2997; J3010; J3370; J7030; J7050; Q9967